=== PATIENT | female | born 1945 | race African-American/Black ===

== ENCOUNTER 2018-03-28 13:36 | Inpatient (IN) | payer OTHER, MEDICARE ==
[2018-03-28 13:49] VITALS: BMI 37.4
--- NOTE | 2018-03-28 14:39 | PDOC ---
Attending Attestation - HPI HPI: 03/28/18 15:05 The patient is a 72 year old female with a significant PMH of CKD, glomerulonephritis, gout, AFib, MV prolapse, HTN, asthma and diabetes who presents to the emergency department from Dr. Dozier office for evaluation of intermittent palpitations, diarrhea, and lightheadedness over the past 2-3 months. She presents today as she had [address] Dozier office. The patient denies fevers or chills. She denies any recent admissions. She denies sick contacts or recent travel. Allergies: Nifedipine, Nitroglycerin. Cardio: Dr. Porter PCP: Dr. Wright - Physicial Exam PE: 03/28/18 16:38 Vitals: Triage Vital signs reviewed General Appearance: no acute distress, well nourished well developed, Head: Atraumatic, normocephalic Cardiac: Regular rate and rhythm, no murmurs, no rubs, no gallops, Lungs: Clear to auscultation bilateral, good air movement bilaterally, Abdomen: Soft, nondistended, normal bowel sounds, nontender to palpation Rectal: Exam deferred Extremities: Full range of motion to all extremities, no cyanosis, clubbing, or edema Skin: Warm and dry, no rashes or lesions, no petechiae Neuro: AOX3; Cranial Nerves 2-12 grossly intact, Strength intact to all extremities, Sensation intact to all extremities Psych: normal mood, normal affect <Jasmeet Reyes - Last Filed: 03/28/18 16:38> - Resident Resident Name: Amanda Toro - ED Attending Attestation I have performed the following: I have examined & evaluated the patient, The case was reviewed & discussed with the resident, I agree w/resident's findings & plan, Exceptions are as noted - Medical Decision Making 03/28/18 17:05 72 years old past medical history significant for a CKD glomerulonephritis CAD A. fib MV prolapse hypertension and asthma diabetes presents with mild hypertension diarrhea lightheadedness for the last several days Patient sent to the emergency department for admission to rule out C. difficile No abdominal pain on examination On the to medicine for further management. 03/28/18 17:05 <Richard Casiano - Last Filed: 03/28/18 17:05>
--- NOTE | 2018-03-28 14:43 | PDOC ---
History of Present Illness - General Chief Complaint: Palpitations Stated Complaint: PALPITATIONS Time Seen by Provider: 03/28/18 14:01 History Source: Patient, Family - History of Present Illness Initial Comments: 03/28/18 14:41 72 year old female with a PMH of HTN, CKD, PAF (s/p pacemaker placement, interrogated January 2018), NIDDM, CKD, glomerulonephritis and MVP presents to our ED c/o palpitations that have been occuring for 2-3 months with associated lightheadedness, subjective dyspnea and no chest pain. Patient notes as associated 2-3 month history of diarrhea, was being evaluated by her creative assistant this morning when she had 3 episodes of diarrhea in quick succession prompting him to send her to the Emergency Department for evaluation. Denies any associated abdominal pain and has been tolerating PO intake however note decreased appetite 2/2 to symptoms, thinks she may have lost 5-10 pounds over the last 2-3 months. Patient denies any chest pain, fevers/chills, dysuria/hematuria, cough, sore throat, recent travel or sick contacts. Allergy: Nifedipine, Nitro PMD: Dr. Wright Cardiology: Dr. Porter Past History - Past Medical History Allergies/Adverse Reactions: Allergies Allergy/AdvReac Type Severity Reaction Status Date / Time nifedipine [From Procardia] Allergy "breathing Verified 03/28/18 16:49 problems" nitroglycerin AdvReac "severe Verified 03/28/18 16:49 [From Nitroglyn] headache" Home Medications: Ambulatory Orders Allopurinol [Zyloprim -] 300 mg PO DAILY 11/07/16 Diltiazem Cd [Cardizem Cd -] 120 mg PO DAILY 11/07/16 Doxazosin Mesylate [Cardura -] 2 mg PO DAILY 11/07/16 Iron 1 tab PO DAILY 11/07/16 Losartan/Hydrochlorothiazide [Losartan-Hctz 100-25 mg Tab] 1 each PO DAILY 11/07 Spironolactone [Aldactone] 25 mg PO DAILY 11/07/16 Bumetanide [Bumex -] 1 tab PO DAILY PRN 09/13/17 Cholecalciferol (Vitamin D3) [Vitamin D3] 1 cap PO DAILY 09/13/17 Warfarin Sodium [Coumadin] 5 mg PO ASDIR 03/28/18 Warfarin Sodium [Coumadin] 10 mg PO ASDIR 03/28/18 Anemia: Yes (LOW COUNT) Asthma: Yes Cancer: No Cardiac Disorders: Yes (MITRAL VALVE, SVT'S CAUSING PALPITATIONS. a.fib) COPD: No Diabetes: Yes (NIDDM) Dialysis: No (kidney disease) HTN: Yes - Surgical History Abdominal Surgery: Yes (UMBILICAL HERNIA) Appendectomy: Yes Cardiac Surgery: Yes (X1,CARDIAC CATH, ppm) Orthopedic Surgery: Yes (TKR RIGHT) - Suicide/Smoking/Psychosocial Hx Smoking Status: No Smoking History: Never smoked Have you smoked in the past 12 months: No Number of Cigarettes Smoked Daily: 0 Information on smoking cessation initiated: No Hx Alcohol Use: No Drug/Substance Use Hx: No Substance Use Type: None Hx Substance Use Treatment: No Review of Systems - Review of Systems Constitutional: No: Chills, Fever HEENTM: No: Recent change in vision Respiratory: Yes: Shortness of Breath. No: Cough Cardiac (ROS): Yes: Lightheadedness, Palpitations. No: Chest Pain, Syncope ABD/GI: Yes: Diarrhea (watery, non-bloody). No: Constipated, Nausea, Vomiting : No: Burning, Dysuria Neurological: No: Numbness, Seizure, Tingling Psychiatric: Yes: Change in Appetite *Physical Exam - Vital Signs Last Vital Signs Temp Pulse Resp BP Pulse Ox 98.0 F 73 18 107/50 99 03/28/18 13:46 03/28/18 13:46 03/28/18 13:46 03/28/18 13:46 03/28/18 13:46 - Physical Exam General Appearance: Yes: Nourished, Appropriately Dressed HEENT: positive: EOMI, ROSALINDA Neck: positive: Trachea midline, Supple Respiratory/Chest: positive: Lungs Clear Cardiovascular: positive: S1, S2. negative: Edema, JVD Vascular Pulses: Dorsalis-Pedis (R): 2+, Doralis-Pedis (L): 2+ Gastrointestinal/Abdominal: positive: Normal Bowel Sounds, Soft Musculoskeletal: negative: CVA Tenderness (R), CVA Tenderness (L) Extremity: positive: Normal Capillary Refill, Normal Inspection Integumentary: positive: Normal Color, Dry, Warm Neurologic: positive: psychology department chair II-XII NML intact, Fully Oriented, Alert Deep Tendon Reflexes: Knee (L): 2+, Knee (R): 2+ ED Treatment Course - LABORATORY CBC & Chemistry Diagram: 03/28/18 14:58 03/28/18 14:58 - RADIOLOGY Radiology Studies Ordered: Category Date Time Status CXRPORT [CHEST X-RAY PORTABLE*] [RAD] Stat Radiology 03/28/18 14:18 Taken Medical Decision Making - Medical Decision Making 03/28/18 14:43 72 year old female presents with 2-3 month h/o watery diarrhea. Hypotensive @ presentation, belly exam benign. Clinical suspicion for community acquired C. Diff. vs. gastritis. Will send stool cultures/C. Diff toxin + IV fluid. 03/28/18 15:44 Case d/w Dr. Porter (cardiology) states patient presented to his office for evaluation of her palpitations and during the course of evaluation she had three episodes of loose stool and her SBP dropped from 110 --> 90. He noted her pacemaker was last interrogated in January 2018. Will send C Diff and stool cultures. Patient admitted to Dr. Yusuf for further management of intractable diarrhea w/resulting hypotension. Patient and patient's daughter @ bedside counseled on POC. Repeat BP 110/71. Will continue to monitor while in ED. *DC/Admit/Observation/Transfer Diagnosis at time of Disposition: Diarrhea - Discharge Dispostion Condition at time of disposition: Fair Admit: Yes - Referrals - Patient Instructions - Post Discharge Activity
[2018-03-28] MEDS ORDERED: SODIUM CHLORIDE 0.9% 500 ML INFUS.BAG IV ONE ×2 (14:47→15:07)
[2018-03-28 15:09] LABS: BASO % 0.7 % (0-2.0); EOS % 1.1 % (0-4.5); HEMATOCRIT 31.2 % (32.4-45.2); HEMOGLOBIN 10.3 GM/dL (10.7-15.3); MCHC 33.1 g/dl (32.0-36.0); MEAN CELL VOLUME 84.8 fl (80-96); MEAN PLT VOLUME 11.5 fl (7.5-11.1); MONO % 7.9 % (3.8-10.2); NEUT % 77.3 % (42.8-82.8); PLATELET COUNT 176 K/MM3 (134-434); RBC 3.69 M/mm3 (3.60-5.2); RDW 16.2 % (11.6-15.6)
[2018-03-28 15:31] LABS: INR 1.81 (0.82-1.09); PROTHROMBIN TIME (PATIENT) 20.4 SEC (9.7-13.0)
[2018-03-28 15:32] LABS: ALBUMIN 3.4 g/dl (3.4-5.0); ANION GAP 7 (8-16); BILIRUBIN,TOTAL 0.2 mg/dL (0.2-1.0); BLOOD UREA NITROGEN 57 mg/dL (7-18); CALCIUM 8.2 mg/dL (8.5-10.1); CHLORIDE 109 mmol/L (98-107); CO2 24 mmol/L (21-32); CREATININE 3.6 mg/dL (0.55-1.02); GLUCOSE,RANDOM 194 mg/dL (74-106); POTASSIUM 4.5 mmol/L (3.5-5.1); SGOT/AST 16 U/L (15-37); SGPT/ALT 17 U/L (12-78); SODIUM 140 mmol/L (136-145); TOT PROT 6.9 g/dl (6.4-8.2)
[2018-03-28 15:34] LABS: ACTIVATED PTT 31.2 SECONDS (26.9-34.4); ALK PHOS 79 U/L (45-117); N-TERMINAL BNP 583.73 pg/ml (5-125)
[2018-03-28] MEDS ORDERED: ACETAMINOPHEN 325 MG TABLET (FP) PO PRN (16:52)
--- NOTE | 2018-03-28 16:58 | HP ---
Admitting History and Physical - Primary Care Physician PCP: Brodie Wright - Admission Chief Complaint: I'm not feeling well History of Present Illness: Mrs Gray is a very pleasant 72 year old female who comes in with palpitations and lightheadedness after being seen in her cardiologists office. She says she has about 3 months of diarrhea. She says it is mainly liquid and it happens every time after she eats. She also notes that she is feeling more palpitations. She is being evaluated for possible ablation. She went to her cardiologists today and while there had 3 episodes of diarrhea. She was also feeling palpitations and lightheaded. She was noted to have low blood pressure and was sent to the ED for further evaluation. Currently she says she is feeling ok. She is having some lightheadedness with standing currently. She still feels palpitations sporadically. She denies fevers, chills, passing out, chest pain or pressure, nausea, vomiting, decreased appetite, difficulty or pain on urination, and her chronic edema is improved. She has shortness of breath with the palpitations. History Source: Patient Limitations to Obtaining History: No Limitations - Past Medical History Cardiovascular: Yes: AFIB, HTN, Other (LV diastolic dysfunction, mitral valve prolapse) Pulmonary: Yes: Asthma Renal/: Yes: Renal Inusuff, Other (fibrillary glomerulonephritis) Musculoskeletal: Yes: Chronic low back pain Rheumatology: Yes: Fibromyalgia, Gout Endocrine: Yes: Diabetes Mellitus - Past Surgical History Past Surgical History: Yes: , Hernia Repair, Hysterectomy, Joint Replacement - Smoking History Smoking history: Never smoked Have you smoked in the past 12 months: No Aproximately how many cigarettes per day: 0 - Alcohol/Substance Use Hx Alcohol Use: No History of Substance Use: reports: None - Social History ADL: Independent Occupation: retired History of Recent Travel: No Home Medications - Allergies Allergies/Adverse Reactions: Allergies Allergy/AdvReac Type Severity Reaction Status Date / Time nifedipine [From Procardia] Allergy "breathing Verified 03/28/18 16:49 problems" nitroglycerin AdvReac "severe Verified 03/28/18 16:49 [From Nitroglyn] headache" - Home Medications Home Medications: Ambulatory Orders Allopurinol [Zyloprim -] 300 mg PO DAILY 11/07/16 Diltiazem Cd [Cardizem Cd -] 120 mg PO DAILY 11/07/16 Doxazosin Mesylate [Cardura -] 2 mg PO DAILY 11/07/16 Iron 1 tab PO DAILY 11/07/16 Losartan/Hydrochlorothiazide [Losartan-Hctz 100-25 mg Tab] 1 each PO DAILY 11/07 Spironolactone [Aldactone] 25 mg PO DAILY 11/07/16 Bumetanide [Bumex -] 1 tab PO DAILY PRN 09/13/17 Cholecalciferol (Vitamin D3) [Vitamin D3] 1 cap PO DAILY 09/13/17 Warfarin Sodium [Coumadin] 5 mg PO ASDIR 03/28/18 Warfarin Sodium [Coumadin] 10 mg PO ASDIR 03/28/18 Family Disease History - Family Disease History Family Disease History: Diabetes: Father, Mother Review of Systems Findings/Remarks: Full review of systems obtained, as per HPI and otherwise negative Physical Examination Vital Signs: Vital Signs Temperature 36.7 C 03/28/18 13:46 Pulse Rate 73 03/28/18 13:46 Respiratory Rate 18 03/28/18 13:46 Blood Pressure 107/50 03/28/18 13:46 O2 Sat by Pulse Oximetry (%) 99 03/28/18 13:46 Constitutional: Yes: Well Nourished, No Distress, Calm Eyes: Yes: Conjunctiva Clear, EOM Intact, PERRL HENT: Yes: Atraumatic, Normocephalic Cardiovascular: Yes: Regular Rate and Rhythm. No: Gallop, Murmur, Rub Respiratory: Yes: Regular, CTA Bilaterally. No: Rales, Rhonchi, Wheezes Gastrointestinal: Yes: Normal Bowel Sounds, Soft. No: Distention, Tenderness Extremities: Yes: WNL Edema: Yes Edema: LLE: 1+, RLE: 1+ Labs: CBC, BMP 03/28/18 14:58 03/28/18 14:58 Imaging - Results Chest X-ray: Image Reviewed Problem List - Problems (1) Acute renal insufficiency Assessment/Plan: -secondary to dehydration from chronic diarrhea and diuretics -admit to the hospital -hold losartan/HCT, bumex, and aldactone -gentle hydration -consult nephrology Code(s): N28.9 - DISORDER OF KIDNEY AND URETER, UNSPECIFIED (2) Chronic renal disease Assessment/Plan: -as above Code(s): N18.9 - CHRONIC KIDNEY DISEASE, UNSPECIFIED Qualifiers: Chronic kidney disease stage: stage 3 (moderate) Qualified Code(s): N18.3 - Chronic kidney disease, stage 3 (moderate) (3) Palpitations Assessment/Plan: -currently not on north agents -consult cardiology -planning for possible ablation in future Code(s): R00.2 - PALPITATIONS (4) Diarrhea Assessment/Plan: -present for 3 months -has history of c diff infection in the past, no recent antibiotic use or hospitalizations -however will check for c diff -stool cultures also ordered -consult GI Code(s): R19.7 - DIARRHEA, UNSPECIFIED (5) Diabetes Assessment/Plan: -patient restarted taking metformin at home (did without telling her physicians) -considering renal function will not continue -d/w patient that should not take medications unless instructed by her physicians -diabetic diet -SSI and FSBS Code(s): E11.9 - TYPE 2 DIABETES MELLITUS WITHOUT COMPLICATIONS Qualifiers: Diabetes mellitus type: type 1 (6) Gout Assessment/Plan: -continue allopurinol -not in flare Code(s): M10.9 - GOUT, UNSPECIFIED (7) Hypertension Assessment/Plan: -hypotensive -holding diuretics and ARBs as above -will also hold hydralazine -hydrate gently and monitor Code(s): I10 - ESSENTIAL (PRIMARY) HYPERTENSION Qualifiers: Hypertension type: essential hypertension Qualified Code(s): I10 - Essential (primary) hypertension (8) Restless leg syndrome, controlled Assessment/Plan: -continue pramipexole Code(s): G25.81 - RESTLESS LEGS SYNDROME (9) Paroxysmal atrial fibrillation Assessment/Plan: -currently in sinus rhythm -continue coumadin -cardiology consulted Code(s): I48.0 - PAROXYSMAL ATRIAL FIBRILLATION
[2018-03-28] MEDS ORDERED: WARFARIN NA 7.5 MG TABLET (FP) PO SCH (18:00)
[2018-03-28] MEDS: SODIUM CHLORIDE 1,000 ML IV SCH ×2 (18:11→22:21)
[2018-03-28] MEDS ORDERED: WARFARIN NA 1 MG TABLET (FP) ONE (20:28)
[2018-03-28] MEDS ORDERED: WARFARIN NA 5 MG TABLET (UD) ONE (20:28)
[2018-03-28] MEDS ORDERED: INSULIN (NOVOLOG) ASPART 100 UNITS/ML 10ML VIAL ONE (21:42)
--- NOTE | 2018-03-28 22:00 | EKG ---
Test Reason : Blood Pressure : / mmHG Vent. Rate : 074 BPM Atrial Rate : 074 BPM P-R Int : 228 ms QRS Dur : 076 ms QT Int : 398 ms P-R-T Axes : 032 036 254 degrees QTc Int : 441 ms Atrial-paced rhythm with prolonged AV conduction T WAVE ABNORMALITY, CONSIDER INFEROLATERAL ISCHEMIA ABNORMAL ECG WHEN COMPARED WITH ECG OF 07-NOV-2016 14:47, ELECTRONIC ATRIAL PACEMAKER HAS REPLACED SINUS RHYTHM T WAVE INVERSION NOW EVIDENT IN INFERIOR LEADS T WAVE INVERSION NOW EVIDENT IN LATERAL LEADS VENT. RATE HAS INCREASED Confirmed by HEAVEN MEHTA MD ([id number]) on 03/28/2018 9:59:55 PM Referred By: Confirmed By:HEAVEN MEHTA MD
[2018-03-28] MEDS: INSULIN SLIDING SCALE (NOVOLOG) 1 VIAL SQ SCH (22:22)
[2018-03-28] MEDS: PRAMIPEXOLE DIHYDROCHLORIDE 0.25 MG TABLET PO SCH ×2 (22:55→23:04)
[2018-03-29] MEDS: INSULIN SLIDING SCALE (NOVOLOG) 1 VIAL SQ SCH ×4 (06:18→22:01)
[2018-03-29] MEDS ORDERED: INSULIN (NOVOLOG) ASPART 100 UNITS/ML 10ML VIAL ONE (06:23)
[2018-03-29 08:12] LABS: BASO % 0.6 % (0-2.0); HEMATOCRIT 28.6 % (32.4-45.2); HEMOGLOBIN 9.4 GM/dL (10.7-15.3); LYMPH % 19.6 % (8-40); MCH 28.2 pg (25.7-33.7); MEAN CELL VOLUME 85.4 fl (80-96); MEAN PLT VOLUME 11.5 fl (7.5-11.1); MONO % 8.8 % (3.8-10.2); PLATELET COUNT 158 K/MM3 (134-434); RBC 3.34 M/mm3 (3.60-5.2); RDW 16.4 % (11.6-15.6); WHITE BLOOD COUNT 8.8 K/mm3 (4.0-10.0)
[2018-03-29 08:34] LABS: INR 1.88 (0.82-1.09); PROTHROMBIN TIME (PATIENT) 21.2 SEC (9.7-13.0)
[2018-03-29 08:55] LABS: ANION GAP 10 (8-16); BLOOD UREA NITROGEN 55 mg/dL (7-18); CALCIUM 8.1 mg/dL (8.5-10.1); CHLORIDE 110 mmol/L (98-107); CO2 22 mmol/L (21-32); GLUCOSE,RANDOM 142 mg/dL (74-106); MAGNESIUM 1.7 mg/dL (1.8-2.4); POTASSIUM 4.2 mmol/L (3.5-5.1); SODIUM 142 mmol/L (136-145)
[2018-03-29 08:56] LABS: CREATININE 3.3 mg/dL (0.55-1.02); PHOSPHOROUS 3.8 mg/dL (2.5-4.9)
[2018-03-29] MEDS: ALLOPURINOL 300 MG TABLET (FP) PO SCH (09:18)
[2018-03-29] MEDS: CHOLECALCIFEROL (VITAMIN D3) 1,000 UNIT TABLET (FP) PO SCH (09:18)
[2018-03-29] MEDS ORDERED: IRON PO SCH (10:00)
--- NOTE | 2018-03-29 11:00 | PN ---
Progress Note (short form) - Note Progress Note: Dr. Yusuf to document today.
--- NOTE | 2018-03-29 11:35 | PN ---
Progress Note, Physician - Current Medication List Current Medications: Active Medications Acetaminophen (Tylenol -) 650 mg PO Q4H PRN PRN Reason: PAIN LEVEL 1-5 Allopurinol (Zyloprim -) 150 mg PO DAILY [facility] Last Admin: 03/29/18 09:18 Dose: 150 mg Cholecalciferol (Vitamin D3 -) 2,000 unit PO DAILY [facility] Last Admin: 03/29/18 09:18 Dose: 2,000 unit Sodium Chloride (Normal Saline -) 1,000 mls @ 50 mls/hr IV ASDIR [facility] Stop: 03/29/18 16:54 Last Admin: 03/28/18 22:21 Dose: 50 mls/hr Insulin Aspart (Novolog Vial Sliding Scale -) 1 vial SQ ACHS [facility] PRN Reason: Protocol Last Admin: 03/29/18 11:28 Dose: Not Given Non-Formulary Medication (Iron [Iron]) 1 tab PO DAILY [facility] Pramipexole Dihydrochloride (Mirapex -) 0.25 mg PO HS [facility] Last Admin: 03/28/18 23:04 Dose: Not Given Warfarin Sodium (Coumadin -) 7.5 mg PO 1800 [facility] Last Admin: 03/28/18 20:30 Dose: 7.5 mg Warfarin Sodium (Coumadin -) 10 mg PO ONCE@1800 ONE Stop: 03/29/18 18:01 - Objective Vital Signs: Vital Signs Temperature 36.8 C 03/29/18 10:00 Pulse Rate 67 03/29/18 10:00 Respiratory Rate 18 03/29/18 10:00 Blood Pressure 115/75 03/29/18 10:00 O2 Sat by Pulse Oximetry (%) 97 03/29/18 10:00 Labs: CBC, BMP 03/29/18 07:15 03/29/18 07:15 INR, PTT INR 1.88 (0.82-1.09) H 03/29/18 06:00 Problem List - Problems (1) Acute renal insufficiency Code(s): N28.9 - DISORDER OF KIDNEY AND URETER, UNSPECIFIED (2) Chronic renal disease Code(s): N18.9 - CHRONIC KIDNEY DISEASE, UNSPECIFIED Qualifiers: Chronic kidney disease stage: stage 3 (moderate) Qualified Code(s): N18.3 - Chronic kidney disease, stage 3 (moderate) (3) Palpitations Code(s): R00.2 - PALPITATIONS (4) Diarrhea Code(s): R19.7 - DIARRHEA, UNSPECIFIED (5) Diabetes Code(s): E11.9 - TYPE 2 DIABETES MELLITUS WITHOUT COMPLICATIONS Qualifiers: Diabetes mellitus type: type 1 (6) Gout Code(s): M10.9 - GOUT, UNSPECIFIED (7) Hypertension Code(s): I10 - ESSENTIAL (PRIMARY) HYPERTENSION Qualifiers: Hypertension type: essential hypertension Qualified Code(s): I10 - Essential (primary) hypertension (8) Restless leg syndrome, controlled Code(s): G25.81 - RESTLESS LEGS SYNDROME (9) Paroxysmal atrial fibrillation Code(s): I48.0 - PAROXYSMAL ATRIAL FIBRILLATION Assessment/Plan (1) Acute renal insufficiency Assessment/Plan: -improving -will continue gentle hydration for another 24 hours -nephrology consulted and awaiting recommendations -continue holding diuretics and losartan Code(s): N28.9 - DISORDER OF KIDNEY AND URETER, UNSPECIFIED (2) Chronic renal disease Assessment/Plan: -as above Code(s): N18.9 - CHRONIC KIDNEY DISEASE, UNSPECIFIED Qualifiers: Chronic kidney disease stage: stage 3 (moderate) Qualified Code(s): N18.3 - Chronic kidney disease, stage 3 (moderate) (3) Palpitations Assessment/Plan: -continue telemetry -cardiology consulted Code(s): R00.2 - PALPITATIONS (4) Diarrhea Assessment/Plan: -stool studies sent -still present -GI consulted Code(s): R19.7 - DIARRHEA, UNSPECIFIED (5) Diabetes Assessment/Plan: -diabetic diet -SSI and FSBS -may be able to stop FSBS and SSI if not very elevated for 24 hours Code(s): E11.9 - TYPE 2 DIABETES MELLITUS WITHOUT COMPLICATIONS Qualifiers: Diabetes mellitus type: type 1 (6) Gout Assessment/Plan: -continue allopurinol -not in flare Code(s): M10.9 - GOUT, UNSPECIFIED (7) Hypertension Assessment/Plan: -improved but still low normal -holding diuretics and ARBs as above -will also hold hydralazine -hydrate gently and monitor Code(s): I10 - ESSENTIAL (PRIMARY) HYPERTENSION Qualifiers: Hypertension type: essential hypertension Qualified Code(s): I10 - Essential (primary) hypertension (8) Restless leg syndrome, controlled Assessment/Plan: -continue pramipexole Code(s): G25.81 - RESTLESS LEGS SYNDROME (9) Paroxysmal atrial fibrillation Assessment/Plan: -currently in sinus rhythm -continue coumadin, increase to 10mg x1d since subtherapeutic -cardiology consulted Code(s): I48.0 - PAROXYSMAL ATRIAL FIBRILLATION
--- NOTE | 2018-03-29 13:53 | CONSULT ---
Consult Consult Specialty:: Nephrology Reason for Consultation:: SUMEET - History of Present Illness Chief Complaint: palpitations History of Present Illness: Pt is a 72 year old female with pmhx of HTN, CKD, PAF, DM, and MVP who was sent in to the ER for palpitations. She also complains of diarrhea. She was found to have elevated creatinine and I was called to evaluate her. She follows with Dr Ramirez. She denies shortness of breath or chest pain. She denies fevers or chills. She had 3 episodes of diarrhea before being sent to the ER. She denies nsaid use. Her renal function started to improve with hydration. - History Source History Provided By: Patient, Medical Record - Past Medical History Cardio/Vascular: Yes: AFIB, HTN, Other (LV diastolic dysfunction, mitral valve prolapse) Pulmonary: Yes: Asthma Renal/: Yes: Renal Inusuff, Other (fibrillary glomerulonephritis) Musculoskeletal: Yes: Chronic low back pain Rheumatology: Yes: Fibromyalgia, Gout Endocrine: Yes: Diabetes Mellitus - Past Surgical History Past Surgical History: Yes: , Hernia Repair, Hysterectomy, Joint Replacement - Alcohol/Substance Use Hx Alcohol Use: No History of Substance Use: reports: None - Smoking History Smoking history: Never smoked Have you smoked in the past 12 months: No Aproximately how many cigarettes per day: 0 - Social History ADL: Independent Occupation: retired History of Recent Travel: No Home Medications - Allergies Allergies/Adverse Reactions: Allergies Allergy/AdvReac Type Severity Reaction Status Date / Time nifedipine [From Procardia] Allergy "breathing Verified 03/28/18 16:49 problems" nitroglycerin AdvReac "severe Verified 03/28/18 16:49 [From Nitroglyn] headache" - Home Medications Home Medications: Ambulatory Orders Allopurinol [Zyloprim -] 300 mg PO DAILY 11/07/16 Diltiazem Cd [Cardizem Cd -] 120 mg PO DAILY 11/07/16 Doxazosin Mesylate [Cardura -] 2 mg PO DAILY 11/07/16 Iron 1 tab PO DAILY 11/07/16 Losartan/Hydrochlorothiazide [Losartan-Hctz 100-25 mg Tab] 1 each PO DAILY 11/07 Spironolactone [Aldactone] 25 mg PO DAILY 11/07/16 Bumetanide [Bumex -] 1 tab PO DAILY PRN 09/13/17 Cholecalciferol (Vitamin D3) [Vitamin D3] 1 cap PO DAILY 09/13/17 Warfarin Sodium [Coumadin] 5 mg PO ASDIR 03/28/18 Warfarin Sodium [Coumadin] 10 mg PO ASDIR 03/28/18 Family Disease History - Family Disease History Family Disease History: Diabetes: Father, Mother Review of Systems - Review of Systems Constitutional: reports: Malaise, Unintentional Wgt. Loss Eyes: reports: No Symptoms HENT: reports: No Symptoms Neck: reports: No Symptoms Cardiovascular: reports: Palpitations Respiratory: reports: No Symptoms Gastrointestinal: reports: Diarrhea Genitourinary: reports: No Symptoms Musculoskeletal: reports: No Symptoms Integumentary: reports: No Symptoms Neurological: reports: No Symptoms Endocrine: reports: No Symptoms Hematology/Lymphatic: reports: No Symptoms Psychiatric: reports: No Symptoms Physical Exam Vital Signs: Vital Signs Temperature 98.3 F 03/29/18 10:00 Pulse Rate 67 03/29/18 10:00 Respiratory Rate 18 03/29/18 10:00 Blood Pressure 115/75 03/29/18 10:00 O2 Sat by Pulse Oximetry (%) 97 03/29/18 10:00 Constitutional: Yes: Calm Eyes: Yes: Conjunctiva Clear HENT: Yes: Atraumatic Neck: Yes: Supple Cardiovascular: Yes: S1, S2 Respiratory: Yes: CTA Bilaterally Gastrointestinal: Yes: Soft, Abdomen, Obese Renal/: Yes: WNL Musculoskeletal: Yes: WNL Edema: Yes Edema: LLE: 1+, RLE: 1+ Neurological: Yes: Oriented Psychiatric: Yes: Oriented Labs: CBC, BMP 03/29/18 07:15 03/29/18 07:15 Laboratory Tests 11/06/15 11/06/16 11/07/16 06:30 06:00 15:06 Creatinine 1.9 H 2.1 H Protein/Creatinin Ratio 2.7 06/03/17 07/09/17 09/30/17 10:51 10:00 15:45 Creatinine 1.8 H 2.4 H D 2.6 H Protein/Creatinin Ratio 01/07/18 03/25/18 11:14 11:43 Creatinine 2.4 H 2.5 H Protein/Creatinin Ratio Imaging - Results Chest X-ray: Report Reviewed Problem List - Problems (1) Diarrhea Code(s): R19.7 - DIARRHEA, UNSPECIFIED (2) Acute renal insufficiency Code(s): N28.9 - DISORDER OF KIDNEY AND URETER, UNSPECIFIED (3) Chronic renal disease Code(s): N18.9 - CHRONIC KIDNEY DISEASE, UNSPECIFIED Qualifiers: Chronic kidney disease stage: stage 3 (moderate) Qualified Code(s): N18.3 - Chronic kidney disease, stage 3 (moderate) Assessment/Plan Current Medications Generic Name Dose Route Start Last Admin Trade Name Freq PRN Reason Stop Dose Admin Acetaminophen 650 mg 03/28/18 16:52 Tylenol - PO Q4H PRN PAIN LEVEL 1-5 Allopurinol 150 mg 03/29/18 10:00 03/29/18 09:18 Zyloprim - PO 150 mg DAILY [facility] Administration Cholecalciferol 2,000 unit 03/29/18 10:00 03/29/18 09:18 Vitamin D3 - PO 2,000 unit DAILY [facility] Administration Ferrous Sulfate 325 mg 03/29/18 17:30 Feosol - PO BIDWM [facility] Sodium Chloride 1,000 mls @ 50 mls/hr 03/28/18 17:00 03/28/18 22:21 Normal Saline - IV 03/30/18 16:54 50 mls/hr ASDIR [facility] Administration Insulin Aspart 1 vial 03/28/18 22:00 03/29/18 11:28 Novolog Vial Sliding Scale - SQ Not Given ACHS [facility] Protocol Non-Formulary Medication 1 tab 03/29/18 10:00 Iron [Iron] PO DAILY [facility] Pramipexole Dihydrochloride 0.25 mg 03/28/18 22:00 03/28/18 23:04 Mirapex - PO Not Given HS [facility] Warfarin Sodium 7.5 mg 03/28/18 18:00 03/28/18 20:30 Coumadin - PO 7.5 mg 1800 [facility] Administration Warfarin Sodium 10 mg 03/29/18 18:00 Coumadin - PO 03/29/18 18:01 ONCE@1800 ONE Impression 1. CKD 2. fibrillary GN 3. HTN 4. DM 5. palpitations 6. anemia 7. SUMEET 8. diarrhea Plan - renal function is starting to improve - diuretics on hold - gentle hydration - check kidney ultrasound - send ua, electrolytes and sales solutions representative - losartan and thiazide on hold - metformin also on hold - will follow Dr Mattson
[2018-03-29] MEDS ORDERED: MAGNESIUM SULF 50% (8.12 MEQ/2 ML-1 GM VIAL) IVPB ONE (15:15)
[2018-03-29] MEDS: SODIUM CHLORIDE 1,000 ML IV SCH ×2 (17:18→22:00)
[2018-03-29] MEDS: FERROUS SO4 325 MG TABLET (FP) PO SCH (17:18)
[2018-03-29] MEDS ORDERED: WARFARIN NA 10 MG TABLET (FP) PO ONE (18:00)
--- NOTE | 2018-03-29 19:50 | CON.GI ---
Consult Consult Specialty:: Gastroenterology Referred by:: Dr. Wright Reason for Consultation:: Diarrhea - History of Present Illness Chief Complaint: Postprandial diarrhea with urgency x 3 months History of Present Illness: 72F diabetic is admitted with diarrhea leading to dehydration aggravating her renal insufficiency. Sue describes having diarrhea that occurs only after eating and which resolved when she avoids eating. She develops cramps and urgency to defecate between 15-60 minutes after eating. While in Dr Porter's office yesterday she had several urgent loose BMs that prompted this admission. She denies passing blood or mucus. She denies tenesmus. She did pass some solid chunks of stool admixed with diarrheal stool this past weekend. She had this altered bowel habit for the past 3 months and it preceded her most recent antibiotic exposure. She denies foreign travel. She has also been experiencing a diminished appetite and early satiety. She has nausea but has not vomited. She last had a colonoscopy on 09/13/15 when an adenoma was removed from her proximal transverse colon. A cecal hyperplastic polyp was also removed. Mild sigmoid diverticulosis was noted. EGD on that date revealed a sliding hiatal hernia and biopsies failed to reveal celiac disease. Ths studies were done for anemia. A BM failed to reveal MDS. 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 SSS), HTN, Other (LV diastolic dysfunction, mitral valve prolapse) Pulmonary: Yes: Asthma Gastrointestinal: Yes: Diverticulosis, Hiatal Hernia, Other (colon adenoma 2014) Renal/: Yes: Renal Inusuff (mesangial proliferative glomerulonephritis), Other (fibrillary glomerulonephritis) Musculoskeletal: Yes: Chronic low back pain (degenerative disc disease) Rheumatology: Yes: Fibromyalgia, Gout Endocrine: Yes: Diabetes Mellitus - Past Surgical History Past Surgical History: Yes: Appendectomy, , Hernia Repair (umbilical hernia repair), Hysterectomy (TAHBSO with appendectomy), Joint Replacement ( Right TKR), Tonsillectomy Additional Surgical History: left foot lipoma excision - Alcohol/Substance Use Hx Alcohol Use: No History of Substance Use: reports: None - Smoking History Smoking history: Never smoked Have you smoked in the past 12 months: No Aproximately how many cigarettes per day: 0 - Social History Usual Living Arrangement: Alone ADL: Independent 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 History of Recent Travel: No Home Medications - Allergies Allergies/Adverse Reactions: Allergies Allergy/AdvReac Type Severity Reaction Status Date / Time nifedipine [From Procardia] Allergy "breathing Verified 03/28/18 16:49 problems" nitroglycerin AdvReac "severe Verified 03/28/18 16:49 [From Nitroglyn] headache" - Home Medications Home Medications: Ambulatory Orders Allopurinol [Zyloprim -] 300 mg PO DAILY 11/07/16 Diltiazem Cd [Cardizem Cd -] 120 mg PO DAILY 11/07/16 Doxazosin Mesylate [Cardura -] 2 mg PO DAILY 11/07/16 Iron 1 tab PO DAILY 11/07/16 Losartan/Hydrochlorothiazide [Losartan-Hctz 100-25 mg Tab] 1 each PO DAILY 11/07 Spironolactone [Aldactone] 25 mg PO DAILY 11/07/16 Bumetanide [Bumex -] 1 tab PO DAILY PRN 09/13/17 Cholecalciferol (Vitamin D3) [Vitamin D3] 1 cap PO DAILY 09/13/17 Warfarin Sodium [Coumadin] 5 mg PO ASDIR 03/28/18 Warfarin Sodium [Coumadin] 10 mg PO ASDIR 03/28/18 Family Disease History - Family Disease History Family Disease History: Diabetes: Father (OMS), Heart Disease: Father, Mother ( PPM, GB stones) Other Family History: Mat aunt breast cancer, cousin with cervical cancer Review of Systems - Review of Systems Constitutional: reports: Loss of Appetite, Weakness Eyes: reports: No Symptoms HENT: reports: No Symptoms Neck: reports: No Symptoms Cardiovascular: reports: Palpitations, Shortness of Breath Respiratory: reports: Exercise Intolerance, SOB on Exertion Gastrointestinal: reports: Abdominal Pain, Bloating, Diarrhea, Nausea Musculoskeletal: reports: Back Pain Neurological: reports: Numbness, Weakness Physical Exam-GI Vital Signs: Vital Signs Temperature 97.8 F 03/29/18 14:21 Pulse Rate 67 03/29/18 14:21 Respiratory Rate 16 03/29/18 14:21 Blood Pressure 131/73 03/29/18 14:21 O2 Sat by Pulse Oximetry (%) 97 03/29/18 16:00 CBC,CMP WBC 8.8 K/mm3 (4.0-10.0) 03/29/18 07:15 RBC 3.34 M/mm3 (3.60-5.2) L 03/29/18 07:15 Hgb 9.4 GM/dL (10.7-15.3) L 03/29/18 07:15 Hct 28.6 % (32.4-45.2) L 03/29/18 07:15 MCV 85.4 fl (80-96) 03/29/18 07:15 MCH 28.2 pg (25.7-33.7) 03/29/18 07:15 MCHC 33.0 g/dl (32.0-36.0) 03/29/18 07:15 RDW 16.4 % (11.6-15.6) H 03/29/18 07:15 Plt Count 158 K/MM3 (134-434) 03/29/18 07:15 MPV 11.5 fl (7.5-11.1) H 03/29/18 07:15 Neutrophils % 66.0 % (42.8-82.8) 03/29/18 07:15 Lymphocytes % 19.6 % (8-40) D 03/29/18 07:15 Monocytes % 8.8 % (3.8-10.2) 03/29/18 07:15 Eosinophils % 5.0 % (0-4.5) H D 03/29/18 07:15 Basophils % 0.6 % (0-2.0) 03/29/18 07:15 Sodium 142 mmol/L (136-145) 03/29/18 07:15 Potassium 4.2 mmol/L (3.5-5.1) 03/29/18 07:15 Chloride 110 mmol/L (98-107) H 03/29/18 07:15 Carbon Dioxide 22 mmol/L (21-32) 03/29/18 07:15 Anion Gap 10 (8-16) 03/29/18 07:15 BUN 55 mg/dL (7-18) H 03/29/18 07:15 Creatinine 3.3 mg/dL (0.55-1.02) H 03/29/18 07:15 Creat Clearance w eGFR 12.50 (>60) 03/28/18 14:58 POC Glucometer 177 UNITS (80-120) 03/29/18 16:45 Random Glucose 142 mg/dL (74-106) H 03/29/18 07:15 Calcium 8.1 mg/dL (8.5-10.1) L 03/29/18 07:15 Phosphorus 3.8 mg/dL (2.5-4.9) 03/29/18 07:15 Magnesium 1.7 mg/dL (1.8-2.4) L 03/29/18 07:15 Total Bilirubin 0.2 mg/dL (0.2-1.0) 03/28/18 14:58 AST 16 U/L (15-37) 03/28/18 14:58 ALT 17 U/L (12-78) 03/28/18 14:58 Alkaline Phosphatase 79 U/L (45-117) 03/28/18 14:58 Creatine Kinase 98 IU/L (26-192) 03/28/18 14:58 Troponin I 0.07 ng/ml (0.00-0.05) H 03/28/18 14:58 B-Natriuretic Peptide 583.73 pg/ml (5-125) H 03/28/18 14:58 Total Protein 6.9 g/dl (6.4-8.2) 03/28/18 14:58 Albumin 3.4 g/dl (3.4-5.0) 03/28/18 14:58 TSH 2.29 uIU/ml (0.358-3.74) 03/28/18 14:50 Current Medications Generic Name Dose Route Start Last Admin Trade Name Imerq PRN Reason Stop Dose Admin Acetaminophen 650 mg 03/28/18 16:52 Tylenol - PO Q4H PRN PAIN LEVEL 1-5 Allopurinol 150 mg 03/29/18 10:00 03/29/18 09:18 Zyloprim - PO 150 mg DAILY ADA Administration Cholecalciferol 2,000 unit 03/29/18 10:00 03/29/18 09:18 Vitamin D3 - PO 2,000 unit DAILY ADA Administration Ferrous Sulfate 325 mg 03/29/18 17:30 03/29/18 17:18 Feosol - PO 325 mg BIDWM ADA Administration Sodium Chloride 1,000 mls @ 50 mls/hr 03/28/18 17:00 03/29/18 17:18 Normal Saline - IV 03/30/18 16:54 50 mls/hr ASDIR ADA Administration Insulin Aspart 1 vial 03/28/18 22:00 03/29/18 16:53 Novolog Vial Sliding Scale - SQ Not Given ACHS [facility] Protocol Non-Formulary Medication 1 tab 03/29/18 10:00 Iron [Iron] PO DAILY [facility] Pramipexole Dihydrochloride 0.25 mg 03/28/18 22:00 03/28/18 23:04 Mirapex - PO Not Given HS [facility] Warfarin Sodium 7.5 mg 03/28/18 18:00 03/28/18 20:30 Coumadin - PO 7.5 mg 1800 ADA Administration Constitutional: Yes: Calm Eyes: Yes: Conjunctiva Clear HENT: Yes: Atraumatic Neck: Yes: Trachea Midline Cardiovascular: Yes: Regular Rate and Rhythm, Other (left sided PPM) Respiratory: Yes: CTA Bilaterally Gastrointestinal Inspection: Yes: Distention, Hernia (incisional), Scars ( crisscrossing transverse subumbilical, vertical suprapubic and Pfannensteil incisions with incisional hernias) ...Auscultate: Yes: Hypoactive Bowel Sounds ...Palpate: Yes: Soft, Other (nontender) ...Percussion: Yes: Tympanitic ...Rectal Exam: Yes: Guaiac Negative (brown semisolid stool), Sphincter Tone Normal Neurological: Yes: Alert, Oriented Labs: CBC, BMP 03/29/18 07:15 03/29/18 07:15 INR, PTT INR 1.88 (0.82-1.09) H 03/29/18 06:00 Laboratory Tests 08/29/15 04/01/16 06/03/17 12:35 10:20 10:51 BUN 27 H D 36 H 49 H 09/30/17 03/25/18 03/28/18 15:45 11:43 14:58 BUN 65 H D 58 H 57 H 03/29/18 07:15 BUN 55 H Problem List - Problems (1) Diarrhea Assessment/Plan: Although the dehydration suggests true diarrhea due to infectious or ischemic colitis or diabetic diarrhea ( C diff is negative) her postprandial pattern of diarrhea, the admixture with solid stool and lack of tenesmus, cessation with NPO status and early satiety suggest diabetic autonomic neuropathy leading to poor colon and gastric motility with diabetic gastroparesis and fecal impaction leading to paradoxical overflow diarrhea. I will order a CT scan to look for evidence of colitis and fecal retention ( no IV contrast) and a stool for WBCs. An elastase to exclude pancreatic insufficiency will also be ordered. I would like to avoid a colonoscopy given her renal failure and anticipated cardiac ablation but if this diarrhea persists I will reconsider after fluid resuscitation. I have discussed colonoscopy in detail with Sue and her daughter. I again informed them of the potential risks of perforation and hemorrhage. Sue is in a position to sign an informed consent if necessary. Code(s): R19.7 - DIARRHEA, UNSPECIFIED (2) Colon adenoma Assessment/Plan: Sue is due for surveillance. Will try to defer until her cardiac and renal situations are resolved. Code(s): D12.6 - BENIGN NEOPLASM OF COLON, UNSPECIFIED (3) Diverticulosis Code(s): K57.90 - DVRTCLOS OF INTEST, PART UNSP, W/O PERF OR ABSCESS W/O BLEED (4) Hiatal hernia Code(s): K44.9 - DIAPHRAGMATIC HERNIA WITHOUT OBSTRUCTION OR GANGRENE
--- NOTE | 2018-03-29 20:03 | CONS ---
DATE OF CONSULTATION: DATE OF DICTATION: 03/29/2018 CARDIOLOGY CONSULTATION REQUESTING PHYSICIAN: Consultation requested by Gareth Yusuf M.D. CHIEF COMPLAINT: 1. Palpitations. 2. Recurring watery diarrhea. HISTORY OF PRESENT ILLNESS: The patient is a [id number] female with history of hypertension, mitral valvular disease, mitral valve prolapse, paroxysmal atrial fibrillation, sick sinus syndrome status post permanent pacemaker, fibrillary glomerulonephritis, renal insufficiency, history of hyperuricemia, diabetes mellitus, left ventricular diastolic dysfunction. Patient came to the office on March 28, 2018, with complaints of recurring episodes of palpitations. She recently had been placed on amiodarone because of episodes of paroxysmal atrial fibrillation. While she was in the office, she was having repeated episodes of watery diarrhea. On questioning, found out she was having diarrhea for several weeks and has been progressively having frequent bowel movements, usually after eating. There is no history of abdominal pain or discomfort. There is no history of nausea or vomiting. She denies having chest pain or discomfort either at rest or with exertion, history of mild dyspnea on exertion, no history of paroxysmal nocturnal dyspnea or orthopnea. While she was in the office, she was noted to have lightheadedness with change in posture, and there was a 10-mm drop in blood pressure on standing. PAST HISTORY: As mentioned in the history of present illness. SURGICAL HISTORY: 1. Status post hysterectomy. 2. Status post herniorrhaphy. 3. Status post . 4. Status post right knee replacement. SOCIAL HISTORY: Retired, has 1 daughter, never smoked, does not drink. FAMILY HISTORY: Both parents are , and there is history of dementia and diabetes mellitus. ALLERGIES: 1. Intolerant to NITROGLYCERIN (headaches). 2. NIFEDIPINE, patient had difficulty in breathing. CURRENT MEDICATIONS: 1. Warfarin 7.5 mg p.o. daily. 2. Allopurinol 150 mg p.o. daily. 3. Mirapex 0.25 mg p.o. at bedtime. 4. Novolog insulin by sliding scale. 5. Iron supplements 1 p.o. daily. 6. Tylenol 650 mg p.o. q.4 h. p.r.n. 7. Ferrous sulfate 325 mg p.o. daily. 8. Vitamin D3 2000 units p.o. daily. REVIEW OF SYSTEMS: Constitutional: No history of chills, fever, or night sweats. No history of unintentional weight loss. HEENT: No history of recent headaches, diplopia, blurred vision reported. No history of epistaxis, hoarseness, tinnitus, or deafness reported. Cardiovascular: See history of present illness. Respiratory: No history of cough, expectoration or hemoptysis. Gastrointestinal: See history of present illness. Neurological: No history of seizures, syncope, or focal weakness. History of restless leg syndrome. Musculoskeletal: No history of myalgias or arthralgias reported. Endocrine: No history of polyuria, polydipsia. No history of intolerance to cold or warm weather. Genitourinary: History of fibrillary glomerulonephritis and chronic kidney disease. PHYSICAL EXAMINATION: General: A 72-year-old female who is complaining of recurring watery diarrhea. There was no pallor, cyanosis, clubbing, or jaundice. Vital signs: Weight was not recorded. Blood pressure is 131/73 mmHg. On admission, blood pressure was 96/56 mmHg. Pulse is 67 beats per minute and regular. Respirations 16 per minute. Temperature 97.8 degrees Fahrenheit. Neck: Supple. No jugulovenous distention, carotids were 2+, upstrokes were normal, no bruits were heard, and no thyromegaly was present. Heart: PMI was in the 5th intercostal space, no heaves or thrills. S1 and S2 were normal. Nonejection systolic click was heard along the left sternal border. No murmur or gallops were appreciated. Lungs: Clear on auscultation. Abdomen: Protuberant, soft and nontender, no hepatosplenomegaly was appreciated, no palpable masses were felt. Bowel sounds were hyperactive. No bruits were heard. Extremities: No calf tenderness or dependent edema. There was a well healed surgical scar over the right knee. Pulses were equal. ECG of March 28, 2018: atrial based rhythm with prolonged AV conduction. T wave abnormalities. Consider ischemia. When compared to ECG of 07 November 2016: 1. Electronic atrial pacemaker has replaced sinus rhythm. 2. T wave inversions now evident in serial leads. 3. T wave inversions now evident in lateral leads. 4. Ventricular rate has increased. X-ray chest, impression: new pacemaker. LABORATORY DATA: On March 29, 2018: WBC count 8800, hemoglobin 9.4 g/dL, platelet count 158,000. Differential reveals slight elevation of eosinophils at 5.0%. Lymphocytes were 19.6%. Neutrophils 66%. Chemistry March 29, 2018: sodium 142, potassium 4.2, chloride 110, CO2 of 22 mmol/L, BUN 55, creatinine 3.3 mg/dL. Random glucose was 142 mg/dL. Magnesium 1.7 mg/dL. BNP was 583.73 on admission. CK was 98, troponin was 0.07. IMPRESSION: 1. Paroxysmal atrial fibrillation, currently in sinus rhythm. 2. Sick sinus syndrome, status post permanent pacemaker. 3. Diarrhea, etiology to be determined. 4. Hypertension, hypertensive cardiovascular disease. 5. Dehydration. 6. Chronic kidney disease with probable acute kidney injury. 7. Hypertension, hypertensive cardiovascular disease. 8. History of diabetes mellitus. 9. Fibrillary glomerulonephritis. RECOMMENDATION: 1. Concur with hydration. 2. GI evaluation. 3. Close followup of renal function. 4. Correction of serum magnesium level. 5. Resume amiodarone 200 mg p.o. b.i.d. 6. Further suggestion as necessary. Thank you for your referral. Yours sincerely, TIMBO MOREIRA M.D. [id number]
[2018-03-29 20:16] LABS: URINE APPEARANCE CLEAR; URINE BILIRUBIN NEGATIVE (<2.0 mg/dL); URINE BLOOD 2+ (NEGATIVE); URINE COLOR STRAW; URINE GLUCOSE (UA) NEGATIVE (NEGATIVE); URINE KETONE NEGATIVE (NEGATIVE); URINE LEUK ESTERASE NEGATIVE (NEGATIVE); URINE NITRITE NEGATIVE (NEGATIVE); URINE UROBILINOGEN NEGATIVE mg/dL (0.2-1.0)
[2018-03-29 20:23] LABS: URINE PROTEIN 2+ (NEGATIVE)
[2018-03-29 20:33] LABS: EPI CELLS RARE /HPF (FEW)
[2018-03-29] MEDS: PRAMIPEXOLE DIHYDROCHLORIDE 0.25 MG TABLET PO SCH (22:01)
[2018-03-30] MEDS: INSULIN SLIDING SCALE (NOVOLOG) 1 VIAL SQ SCH ×2 (06:09→11:44)
[2018-03-30 06:46] LABS: BASO % 0.9 % (0-2.0); HEMATOCRIT 30.3 % (32.4-45.2); HEMOGLOBIN 9.8 GM/dL (10.7-15.3); LYMPH % 20.7 % (8-40); MCH 27.9 pg (25.7-33.7); MCHC 32.4 g/dl (32.0-36.0); MEAN CELL VOLUME 86.1 fl (80-96); MEAN PLT VOLUME 11.5 fl (7.5-11.1); MONO % 8.9 % (3.8-10.2); NEUT % 64.5 % (42.8-82.8); PLATELET COUNT 159 K/MM3 (134-434); RBC 3.53 M/mm3 (3.60-5.2); RDW 16.5 % (11.6-15.6); WHITE BLOOD COUNT 8.5 K/mm3 (4.0-10.0)
[2018-03-30 07:00] LABS: PROTHROMBIN TIME (PATIENT) 22.6 SEC (9.7-13.0)
[2018-03-30 07:29] LABS: ALBUMIN 3.2 g/dl (3.4-5.0); ALK PHOS 78 U/L (45-117); ANION GAP 9 (8-16); BILIRUBIN,TOTAL 0.2 mg/dL (0.2-1.0); BLOOD UREA NITROGEN 46 mg/dL (7-18); CALCIUM 8.2 mg/dL (8.5-10.1); CHLORIDE 111 mmol/L (98-107); CO2 23 mmol/L (21-32); CREATININE 2.5 mg/dL (0.55-1.02); GLUCOSE,RANDOM 129 mg/dL (74-106); MAGNESIUM 2.5 mg/dL (1.8-2.4); PHOSPHOROUS 3.4 mg/dL (2.5-4.9); POTASSIUM 4.4 mmol/L (3.5-5.1); SGOT/AST 13 U/L (15-37); SGPT/ALT 15 U/L (12-78); SODIUM 143 mmol/L (136-145); TOT PROT 6.6 g/dl (6.4-8.2)
--- NOTE | 2018-03-30 08:53 | PN ---
Progress Note (short form) - Note Progress Note: Dr. Yusuf to document today. CT abd being done today.
[2018-03-30] MEDS: FERROUS SO4 325 MG TABLET (FP) PO SCH ×2 (09:14→17:09)
[2018-03-30] MEDS: CHOLECALCIFEROL (VITAMIN D3) 1,000 UNIT TABLET (FP) PO SCH (10:16)
[2018-03-30] MEDS: ALLOPURINOL 300 MG TABLET (FP) PO SCH (10:16)
--- NOTE | 2018-03-30 11:47 | PN ---
Progress Note, Physician Chief Complaint: Ms Gray says she is feeling better. Still with loose stool but improved. No cp , sob, n/v. - Current Medication List Current Medications: Active Medications Acetaminophen (Tylenol -) 650 mg PO Q4H PRN PRN Reason: PAIN LEVEL 1-5 Allopurinol (Zyloprim -) 150 mg PO DAILY [facility] Last Admin: 03/30/18 10:16 Dose: 150 mg Cholecalciferol (Vitamin D3 -) 2,000 unit PO DAILY [facility] Last Admin: 03/30/18 10:16 Dose: 2,000 unit Ferrous Sulfate (Feosol -) 325 mg PO BIDWM [facility] Last Admin: 03/30/18 09:14 Dose: 325 mg Sodium Chloride (Normal Saline -) 1,000 mls @ 50 mls/hr IV ASDIR [facility] Stop: 03/30/18 16:54 Last Admin: 03/29/18 22:00 Dose: 50 mls/hr Insulin Aspart (Novolog Vial Sliding Scale -) 1 vial SQ ACHS [facility] PRN Reason: Protocol Last Admin: 03/30/18 11:44 Dose: Not Given Non-Formulary Medication (Iron [Iron]) 1 tab PO DAILY [facility] Pramipexole Dihydrochloride (Mirapex -) 0.25 mg PO HS [facility] Last Admin: 03/29/18 22:01 Dose: Not Given Warfarin Sodium (Coumadin -) 5 mg PO DAILY@1800 [facility] Warfarin Sodium (Coumadin -) 10 mg PO WE [facility] - Objective Vital Signs: Vital Signs Temperature 36.7 C 03/30/18 10:00 Pulse Rate 69 03/30/18 10:00 Respiratory Rate 18 03/30/18 10:00 Blood Pressure 141/76 03/30/18 10:00 O2 Sat by Pulse Oximetry (%) 97 03/29/18 23:50 Constitutional: Yes: Well Nourished, No Distress, Calm Cardiovascular: Yes: Regular Rate and Rhythm. No: Gallop, Murmur, Rub Respiratory: Yes: Regular, CTA Bilaterally. No: Rales, Rhonchi, Wheezes Gastrointestinal: Yes: Normal Bowel Sounds, Soft. No: Distention, Tenderness Extremities: Yes: WNL Edema: Yes Edema: LLE: 1+, RLE: 1+ Labs: CBC, BMP 03/30/18 05:35 03/30/18 05:35 INR, PTT INR 2.00 (0.82-1.09) H 03/30/18 05:35 Problem List - Problems (1) Acute renal insufficiency Code(s): N28.9 - DISORDER OF KIDNEY AND URETER, UNSPECIFIED (2) Chronic renal disease Code(s): N18.9 - CHRONIC KIDNEY DISEASE, UNSPECIFIED Qualifiers: Chronic kidney disease stage: stage 3 (moderate) Qualified Code(s): N18.3 - Chronic kidney disease, stage 3 (moderate) (3) Palpitations Code(s): R00.2 - PALPITATIONS (4) Diarrhea Code(s): R19.7 - DIARRHEA, UNSPECIFIED (5) Diabetes Code(s): E11.9 - TYPE 2 DIABETES MELLITUS WITHOUT COMPLICATIONS Qualifiers: Diabetes mellitus type: type 1 (6) Gout Code(s): M10.9 - GOUT, UNSPECIFIED (7) Hypertension Code(s): I10 - ESSENTIAL (PRIMARY) HYPERTENSION Qualifiers: Hypertension type: essential hypertension Qualified Code(s): I10 - Essential (primary) hypertension (8) Restless leg syndrome, controlled Code(s): G25.81 - RESTLESS LEGS SYNDROME (9) Paroxysmal atrial fibrillation Code(s): I48.0 - PAROXYSMAL ATRIAL FIBRILLATION (10) Left ventricular diastolic dysfunction Code(s): I51.9 - HEART DISEASE, UNSPECIFIED Assessment/Plan (1) Acute renal insufficiency Assessment/Plan: -case d/w Dr Mattson -decrease IVF rate today -monitor creatinine -continue holding diuretics -continue holding losartan Code(s): N28.9 - DISORDER OF KIDNEY AND URETER, UNSPECIFIED (2) Chronic renal disease Assessment/Plan: -as above -approaching baseline Code(s): N18.9 - CHRONIC KIDNEY DISEASE, UNSPECIFIED Qualifiers: Chronic kidney disease stage: stage 3 (moderate) Qualified Code(s): N18.3 - Chronic kidney disease, stage 3 (moderate) (3) Palpitations Assessment/Plan: -cardiology following and note reviewed -reviewed Dr Porter's note -Dr Porter states to restart amiodarone 200mg bid -will order per his recommendations Code(s): R00.2 - PALPITATIONS (4) Diarrhea Assessment/Plan: -appreciate GI assistance -Dr Marie's note reviewed -CT scan A/P evaluated and official read reviewed -c diff negative -CT scan not showing impaction -follow up further GI recs Code(s): R19.7 - DIARRHEA, UNSPECIFIED (5) Diabetes Assessment/Plan: -diabetic diet -can stop FSBS and SSI Code(s): E11.9 - TYPE 2 DIABETES MELLITUS WITHOUT COMPLICATIONS Qualifiers: Diabetes mellitus type: type 1 (6) Gout Assessment/Plan: -continue allopurinol -not in flare Code(s): M10.9 - GOUT, UNSPECIFIED (7) Hypertension Assessment/Plan: -improved but still low normal -holding diuretics and ARBs as above -will also hold hydralazine -may need to restart soon Code(s): I10 - ESSENTIAL (PRIMARY) HYPERTENSION Qualifiers: Hypertension type: essential hypertension Qualified Code(s): I10 - Essential (primary) hypertension (8) Restless leg syndrome, controlled Assessment/Plan: -continue pramipexole Code(s): G25.81 - RESTLESS LEGS SYNDROME (9) Paroxysmal atrial fibrillation Assessment/Plan: -currently in sinus rhythm -restart amiodarone as above -patient says she takes coumadin 10mg TW and 5mg every other day -restart home regimen Code(s): I48.0 - PAROXYSMAL ATRIAL FIBRILLATION
--- NOTE | 2018-03-30 12:32 | PN ---
GI Progress Note Subjective: GI NOte: CT reveals no colitis or fecal impaction. She did have a large bowel movement following the CT contrast and feels less bloated today. Had had only 1 semiformed BM today. Stool studies still being collected. - Objective Vital Signs: Vital Signs Temperature 98.1 F 03/30/18 10:00 Pulse Rate 69 03/30/18 10:00 Respiratory Rate 18 03/30/18 10:00 Blood Pressure 141/76 03/30/18 10:00 O2 Sat by Pulse Oximetry (%) 97 03/29/18 23:50 Constitutional: No Distress ...Auscultate: Yes: Normoactive Bowel Sounds ...Palpate: Yes: Soft, Other (nontender) Labs: CBC, BMP 03/30/18 05:35 03/30/18 05:35 INR, PTT INR 2.00 (0.82-1.09) H 03/30/18 05:35 Problem List - Problems (1) Diarrhea Assessment/Plan: Await stool studies. Hoping that the CT contrast has relieved a fecal impaction and rest the colon for formed stools. Code(s): R19.7 - DIARRHEA, UNSPECIFIED (2) Colon adenoma Code(s): D12.6 - BENIGN NEOPLASM OF COLON, UNSPECIFIED (3) Diverticulosis Code(s): K57.90 - DVRTCLOS OF INTEST, PART UNSP, W/O PERF OR ABSCESS W/O BLEED (4) Hiatal hernia Code(s): K44.9 - DIAPHRAGMATIC HERNIA WITHOUT OBSTRUCTION OR GANGRENE
--- NOTE | 2018-03-30 12:50 | PN ---
Progress Note, Physician History of Present Illness: Pt seen and examined at bedside. She denies dysuria or hematuria. She still has loose bowel movements. She denies shortness of breath. - Current Medication List Current Medications: Active Medications Acetaminophen (Tylenol -) 650 mg PO Q4H PRN PRN Reason: PAIN LEVEL 1-5 Allopurinol (Zyloprim -) 150 mg PO DAILY [facility] [place] Last Admin: 03/30/18 10:16 Dose: 150 mg Cholecalciferol (Vitamin D3 -) 2,000 unit PO DAILY [facility] [place] Last Admin: 03/30/18 10:16 Dose: 2,000 unit Ferrous Sulfate (Feosol -) 325 mg PO BIDWM [facility] [place] Last Admin: 03/30/18 09:14 Dose: 325 mg Sodium Chloride (Normal Saline -) 1,000 mls @ 50 mls/hr IV ASDIR [facility] [place] Stop: 03/30/18 16:54 Last Admin: 03/29/18 22:00 Dose: 50 mls/hr Insulin Aspart (Novolog Vial Sliding Scale -) 1 vial SQ ACHS [facility] PRN Reason: Protocol Last Admin: 03/30/18 11:44 Dose: Not Given Non-Formulary Medication (Iron [Iron]) 1 tab PO DAILY [facility] [place] Pramipexole Dihydrochloride (Mirapex -) 0.25 mg PO HS [facility] Last Admin: 03/29/18 22:01 Dose: Not Given Warfarin Sodium (Coumadin -) 5 mg PO SuMoThFrSa@1800 [facility] Warfarin Sodium (Coumadin -) 10 mg PO TuWe@1800 [facility] - Objective Vital Signs: Vital Signs Temperature 98.1 F 03/30/18 10:00 Pulse Rate 69 03/30/18 10:00 Respiratory Rate 18 03/30/18 10:00 Blood Pressure 141/76 03/30/18 10:00 O2 Sat by Pulse Oximetry (%) 97 03/29/18 23:50 Constitutional: Yes: Calm Eyes: Yes: Conjunctiva Clear HENT: Yes: Atraumatic Neck: Yes: Supple Cardiovascular: Yes: S1, S2 Respiratory: Yes: CTA Bilaterally Gastrointestinal: Yes: Soft, Abdomen, Obese Genitourinary: Yes: WNL Musculoskeletal: Yes: WNL Extremities: Yes: WNL Edema: LLE: Trace, RLE: Trace Neurological: Yes: Oriented Psychiatric: Yes: Oriented Labs: CBC, BMP 03/30/18 05:35 05/02/18 05:35 INR, PTT INR 2.00 (0.82-1.09) H 03/30/18 05:35 Problem List - Problems (1) Diarrhea Code(s): R19.7 - DIARRHEA, UNSPECIFIED (2) Acute renal insufficiency Code(s): N28.9 - DISORDER OF KIDNEY AND URETER, UNSPECIFIED (3) Chronic renal disease Code(s): N18.9 - CHRONIC KIDNEY DISEASE, UNSPECIFIED Qualifiers: Chronic kidney disease stage: stage 3 (moderate) Qualified Code(s): N18.3 - Chronic kidney disease, stage 3 (moderate) Assessment/Plan Current Medications Generic Name Dose Route Start Last Admin Trade Name Freq PRN Reason Stop Dose Admin Acetaminophen 650 mg 03/28/18 16:52 Tylenol - PO Q4H PRN PAIN LEVEL 1-5 Allopurinol 150 mg 03/29/18 10:00 03/30/18 10:16 Zyloprim - PO 150 mg DAILY [facility] [place] Administration Cholecalciferol 2,000 unit 03/29/18 10:00 03/30/18 10:16 Vitamin D3 - PO 2,000 unit DAILY [facility] Administration Ferrous Sulfate 325 mg 03/29/18 17:30 03/30/18 09:14 Feosol - PO 325 mg BIDWM [facility] Administration Sodium Chloride 1,000 mls @ 50 mls/hr 03/28/18 17:00 03/29/18 22:00 Normal Saline - IV 03/30/18 16:54 50 mls/hr ASDIR [facility] [place] Administration Insulin Aspart 1 vial 03/28/18 22:00 03/30/18 11:44 Novolog Vial Sliding Scale - SQ Not Given ACHS [facility] [place] Protocol Non-Formulary Medication 1 tab 03/29/18 10:00 Iron [Iron] PO DAILY [facility] [place] Pramipexole Dihydrochloride 0.25 mg 03/28/18 22:00 03/29/18 22:01 Mirapex - PO Not Given HS [facility] [place] Warfarin Sodium 5 mg 03/31/18 18:00 Coumadin - PO SuMoThFrSa@1800 [facility] [place] Warfarin Sodium 10 mg 03/30/18 18:00 Coumadin - PO TuWe@1800 [facility] Impression 1. CKD 2. fibrillary GN 3. HTN 4. DM 5. palpitations 6. anemia 7. SUMEET 8. diarrhea Plan - renal function continues to improve - will decrease fluids further - repeat labs in am - diuretics and losartan on hold - will likely decrease diuretics on discharge - renal ultrasound reviewed - UA reviewed - will follow Dr Mattson
[2018-03-30] MEDS ORDERED: SODIUM CHLORIDE 1,000 ML IV SCH (13:15)
--- NOTE | 2018-03-30 13:28 | PN ---
Progress Note (short form) - Note Progress Note: S: 72 year old female with history of hypertension, mitral valvular disease, mitral valve prolapse, paroxysmal atrial fibrillation, sick sinus syndrome status post pacemaker, fibrillary glomerularnephritis, renal insufficiency, history of hyperuricemia, diabetes mellitus, left ventricular dysfunction. No further episodes of palpitations. No shortness of breath has been reported, lightheadedness or dizziness. Diarrheal episodes have decreased and according to the patient she has been told that they may be related to impaction. Active Medications Generic Name Dose Route Start Last Admin Trade Name Freq PRN Reason Stop Dose Admin Acetaminophen 650 mg 03/28/18 16:52 Tylenol - PO Q4H PRN PAIN LEVEL 1-5 Allopurinol 150 mg 03/29/18 10:00 03/30/18 10:16 Zyloprim - PO 150 mg DAILY [facility] Administration Amiodarone HCl 200 mg 03/30/18 13:30 Cordarone - PO BID [facility] Cholecalciferol 2,000 unit 03/29/18 10:00 03/30/18 10:16 Vitamin D3 - PO 2,000 unit DAILY [facility] Administration Ferrous Sulfate 325 mg 03/29/18 17:30 03/30/18 09:14 Feosol - PO 325 mg BIDWM [facility] Administration Sodium Chloride 1,000 mls @ 30 mls/hr 03/30/18 13:15 Normal Saline - IV 03/30/18 16:54 ASDIR [facility] Insulin Aspart 1 vial 03/28/18 22:00 03/30/18 11:44 Novolog Vial Sliding Scale - SQ Not Given ACHS [facility] Protocol Non-Formulary Medication 1 tab 03/29/18 10:00 Iron [Iron] PO DAILY [facility] Pramipexole Dihydrochloride 0.25 mg 03/28/18 22:00 03/29/18 22:01 Mirapex - PO Not Given HS [facility] Warfarin Sodium 5 mg 03/31/18 18:00 Coumadin - PO SuMoThFrSa@1800 [facility] Warfarin Sodium 10 mg 03/30/18 18:00 Coumadin - PO TuWe@1800 [facility] O: 72 year old female was in no acute distress, no pallor, cyanosis, clubbing, or jaundice. Last Vital Signs Temp Pulse Resp BP Pulse Ox 98.1 F 69 18 141/76 97 03/30/18 10:00 03/30/18 10:03/30/18 10:03/30/18 10:03/29/18 23:50 Neck: Supple, no JVD, negative HJR, carotids were equal and upstrokes were normal, no thyromegaly appreciated. Heart: PMI was in the 5th intercostal space, no heaves or thrills, S1 and S2 were normal. No murmurs or gallops were appreciated. Lungs: Clear on auscultation bilaterally. Abdomen: Soft, nontender, no hepatosplenomegaly appreciated, and no palpable masses were felt. Extremities: No calf tenderness or dependent edema. Pulses are normal. CBC, BMP 03/30/18 05:35 03/30/18 05:35 IMPRESSION: 1. Palpitations related to paroxysmal atrial fibrillation, presently in sinus rhythm. 2. Hypertension/ Hypertensive cardiovascular disease. 3. Chronic kidney disease. 4. fibrillary glomerularnephritis 5. Persistent diarrhea, etiology to be determined. 6. Mitral valve prolapse. 7. Diabetes mellitus 8. Sick sinus syndrome. 9. Status post permanent pacemaker. 10. Hyperuricemia. 11. Left ventricular diastolic dysfunction. RECOMMENDATION: 1. Resume Amiodarone 2. T3 T4 TSH 3. Increase ambulation.
[2018-03-30] MEDS: AMIODARONE HCL 200 MG TABLET (FP) PO SCH ×2 (14:46→22:18)
[2018-03-30] MEDS ORDERED: WARFARIN NA 10 MG TABLET (FP) PO SCH (18:00)
[2018-03-30] MEDS ORDERED: PT OWN MED DRAWER 7, Y5N ONE (22:14)
[2018-03-30] MEDS: PRAMIPEXOLE DIHYDROCHLORIDE 0.25 MG TABLET PO SCH (22:18)
[2018-03-31 06:36] LABS: BASO % 0.8 % (0-2.0); HEMATOCRIT 27.8 % (32.4-45.2); HEMOGLOBIN 9.2 GM/dL (10.7-15.3); LYMPH % 21.2 % (8-40); MCH 28.1 pg (25.7-33.7); MEAN PLT VOLUME 11.8 fl (7.5-11.1); MONO % 9.3 % (3.8-10.2); NEUT % 64.7 % (42.8-82.8); PLATELET COUNT 156 K/MM3 (134-434); RBC 3.27 M/mm3 (3.60-5.2); RDW 16.1 % (11.6-15.6); WHITE BLOOD COUNT 7.2 K/mm3 (4.0-10.0)
[2018-03-31 06:50] LABS: INR 2.3 (0.82-1.09)
[2018-03-31 07:06] LABS: ANION GAP 10 (8-16); BLOOD UREA NITROGEN 46 mg/dL (7-18); CALCIUM 8.1 mg/dL (8.5-10.1); CHLORIDE 112 mmol/L (98-107); CO2 21 mmol/L (21-32); GLUCOSE,RANDOM 125 mg/dL (74-106); MAGNESIUM 2.5 mg/dL (1.8-2.4); POTASSIUM 4.7 mmol/L (3.5-5.1); SODIUM 143 mmol/L (136-145)
[2018-03-31 07:09] LABS: CREATININE 2.4 mg/dL (0.55-1.02); PHOSPHOROUS 3.4 mg/dL (2.5-4.9)
--- NOTE | 2018-03-31 08:55 | PN ---
Progress Note (short form) - Note Progress Note: Dr. Yusuf to document today. CT noted; ? autonomic neuroparhy/gastric paresis
[2018-03-31] MEDS: AMIODARONE HCL 200 MG TABLET (FP) PO SCH (09:07)
[2018-03-31] MEDS: CHOLECALCIFEROL (VITAMIN D3) 1,000 UNIT TABLET (FP) PO SCH (09:07)
[2018-03-31] MEDS: ALLOPURINOL 300 MG TABLET (FP) PO SCH (09:07)
[2018-03-31] MEDS: FERROUS SO4 325 MG TABLET (FP) PO SCH (09:08)
[2018-03-31 13:37] VITALS: BP 150/75; PULSE 68; TEMP 98.2
--- NOTE | 2018-03-31 14:05 | DS ---
Physical Examination Vital Signs: Vital Signs Temperature 36.8 C 03/31/18 13:35 Pulse Rate 68 03/31/18 13:35 Respiratory Rate 18 03/31/18 13:35 Blood Pressure 150/75 03/31/18 13:35 O2 Sat by Pulse Oximetry (%) 98 03/31/18 09:00 Constitutional: Yes: Well Nourished, No Distress, Calm Cardiovascular: Yes: Regular Rate and Rhythm. No: Gallop, Murmur, Rub Respiratory: Yes: Regular, CTA Bilaterally. No: Rales, Rhonchi, Wheezes Gastrointestinal: Yes: Normal Bowel Sounds, Soft. No: Distention, Tenderness Extremities: Yes: WNL Edema: No Labs: CBC, BMP 03/31/18 05:35 03/31/18 05:35 Discharge Summary Reason For Visit: DIARRHEA Current Active Problems Colon adenoma (Acute) Diarrhea (Acute) Diverticulosis (Acute) Hiatal hernia (Acute) Restless leg syndrome, controlled (Acute) Hospital Course: (1) Acute renal insufficiency Code(s): N28.9 - DISORDER OF KIDNEY AND URETER, UNSPECIFIED (2) Chronic renal disease Code(s): N18.9 - CHRONIC KIDNEY DISEASE, UNSPECIFIED Qualifiers: Chronic kidney disease stage: stage 3 (moderate) Qualified Code(s): N18.3 - Chronic kidney disease, stage 3 (moderate) (3) Palpitations Code(s): R00.2 - PALPITATIONS (4) Diarrhea Code(s): R19.7 - DIARRHEA, UNSPECIFIED (5) Diabetes Code(s): E11.9 - TYPE 2 DIABETES MELLITUS WITHOUT COMPLICATIONS Qualifiers: Diabetes mellitus type: type 1 (6) Gout Code(s): M10.9 - GOUT, UNSPECIFIED (7) Hypertension Code(s): I10 - ESSENTIAL (PRIMARY) HYPERTENSION Qualifiers: Hypertension type: essential hypertension Qualified Code(s): I10 - Essential (primary) hypertension (8) Restless leg syndrome, controlled Code(s): G25.81 - RESTLESS LEGS SYNDROME (9) Paroxysmal atrial fibrillation Code(s): I48.0 - PAROXYSMAL ATRIAL FIBRILLATION (10) Left ventricular diastolic dysfunction Code(s): I51.9 - HEART DISEASE, UNSPECIFIED Ms Gray is a very pleasant 72 year old female who comes in with diarrhea and palpitations. Upon presentation she was found to be dehydrated and with SUMEET. she was admitted telemetry considering her palpitations and PAF. All her blood pressure medications were held since she was hypotensive from dehydration. She was gently hydrated with NS. Nephrology was consulted and managed her IVF. Her renal function is now at baseline. She was seen by GI and underwent CT scan of the abdomen and pelvis. Of note she had a very large bowel movement secondary to the contrast. No impaction was found but question if impaction resolved with contrast as she no longer had diarrhea after this. Cardiology consulted and she was placed back on her amiodarone. Currently she is doing well and says this is the best she felt in a while. She is safe for discharge home with close follow up. Her losartan HCT was changed to losartan and her diuretics were change to q48 hours. 34 minutes spent in preparation of this discharge Condition: Good - Instructions Referrals: Brodie Wright MD [Primary Care Provider] - 1 Week Buddy Liang MD [Staff Physician] - Jake Porter MD [Staff Physician] - Rosendo Marie MD [Staff Physician] - Disposition: HOME - Home Medications Comprehensive Discharge Medication List: Ambulatory Orders Allopurinol [Zyloprim -] 300 mg PO DAILY 11/07/16 Doxazosin Mesylate [Cardura -] 2 mg PO DAILY 11/07/16 Iron 1 tab PO DAILY 11/07/16 Bumetanide [Bumex -] 1 tab PO DAILY PRN 09/13/17 Cholecalciferol (Vitamin D3) [Vitamin D3] 1 cap PO DAILY 09/13/17 Amiodarone HCl [Cordarone -] 200 mg PO BID #60 tablet 03/31/18 Losartan Potassium 100 mg PO DAILY #30 tablet 03/31/18 Pramipexole Dihydrochloride [Mirapex -] 0.25 mg PO HS tablet 03/31/18 Spironolactone [Aldactone -] 25 mg PO Q48H #0 tab 03/31/18 Warfarin Na [Coumadin -] 5 mg PO SuMoThFrSa@1800 tablet 03/31/18 Warfarin Na [Coumadin -] 10 mg PO TuWe@1800 tablet 03/31/18
--- NOTE | 2018-03-31 15:04 | PN ---
Progress Note, Physician History of Present Illness: Pt seen and examined at bedside. She is awake and alert. She has not had any diarrhea today. - Current Medication List Current Medications: Active Medications Acetaminophen (Tylenol -) 650 mg PO Q4H PRN PRN Reason: PAIN LEVEL 1-5 Allopurinol (Zyloprim -) 150 mg PO DAILY [facility] Last Admin: 03/31/18 09:07 Dose: 150 mg Amiodarone HCl (Cordarone -) 200 mg PO BID [facility] Last Admin: 03/31/18 09:07 Dose: 200 mg Cholecalciferol (Vitamin D3 -) 2,000 unit PO DAILY [facility] Last Admin: 03/31/18 09:07 Dose: 2,000 unit Ferrous Sulfate (Feosol -) 325 mg PO BIDWM [facility] Last Admin: 03/31/18 09:08 Dose: 325 mg Pramipexole Dihydrochloride (Mirapex -) 0.25 mg PO HS [facility] Last Admin: 03/30/18 22:18 Dose: Not Given Warfarin Sodium (Coumadin -) 5 mg PO SuMoThFrSa@1800 [facility] Warfarin Sodium (Coumadin -) 10 mg PO TuWe@1800 [facility] Last Admin: 03/30/18 17:09 Dose: 10 mg - Objective Vital Signs: Vital Signs Temperature 98.2 F 03/31/18 13:35 Pulse Rate 68 03/31/18 13:35 Respiratory Rate 18 03/31/18 13:35 Blood Pressure 150/75 03/31/18 13:35 O2 Sat by Pulse Oximetry (%) 98 03/31/18 09:00 Constitutional: Yes: Calm Eyes: Yes: Conjunctiva Clear HENT: Yes: Atraumatic Neck: Yes: Supple Cardiovascular: Yes: S1, S2 Respiratory: Yes: CTA Bilaterally Gastrointestinal: Yes: Normal Bowel Sounds, Soft Genitourinary: Yes: WNL Musculoskeletal: Yes: WNL Edema: No Neurological: Yes: Oriented Psychiatric: Yes: Oriented Labs: CBC, BMP 03/31/18 05:35 03/31/18 05:35 INR, PTT INR 2.30 (0.82-1.09) H 03/31/18 05:35 Problem List - Problems (1) Diarrhea Code(s): R19.7 - DIARRHEA, UNSPECIFIED (2) Acute renal insufficiency Code(s): N28.9 - DISORDER OF KIDNEY AND URETER, UNSPECIFIED (3) Chronic renal disease Code(s): N18.9 - CHRONIC KIDNEY DISEASE, UNSPECIFIED Qualifiers: Chronic kidney disease stage: stage 3 (moderate) Qualified Code(s): N18.3 - Chronic kidney disease, stage 3 (moderate) Assessment/Plan Current Medications Generic Name Dose Route Start Last Admin Trade Name Freq PRN Reason Stop Dose Admin Acetaminophen 650 mg 03/28/18 16:52 Tylenol - PO Q4H PRN PAIN LEVEL 1-5 Allopurinol 150 mg 03/29/18 10:00 03/31/18 09:07 Zyloprim - PO 150 mg DAILY [facility] Administration Amiodarone HCl 200 mg 03/30/18 13:30 03/31/18 09:07 Cordarone - PO 200 mg BID [facility] Administration Cholecalciferol 2,000 unit 03/29/18 10:00 03/31/18 09:07 Vitamin D3 - PO 2,000 unit DAILY [facility] Administration Ferrous Sulfate 325 mg 03/29/18 17:30 03/31/18 09:08 Feosol - PO 325 mg BIDWM [facility] Administration Pramipexole Dihydrochloride 0.25 mg 03/28/18 22:00 03/30/18 22:18 Mirapex - PO Not Given HS [facility] Warfarin Sodium 5 mg 03/31/18 18:00 Coumadin - PO SuMoThFrSa@1800 [facility] Warfarin Sodium 10 mg 03/30/18 18:00 03/30/18 17:09 Coumadin - PO 10 mg TuWe@1800 [facility] Administration Impression 1. CKD 2. fibrillary GN 3. HTN 4. DM 5. palpitations 6. anemia 7. SUMEET 8. diarrhea Plan - restart losartan - stop hctz - cont spironolactone - bumex every other day - will need to monitor volume status closely - pt to see her nephrology and primary next week - discussed with primary team - will follow Dr Mattson
--- NOTE | 2018-03-31 15:25 | PN ---
Progress Note (short form) - Note Progress Note: S: 72 year old female with history of hypertension, mitral valvular disease, mitral valve prolapse, paroxysmal atrial fibrillation, sick sinus syndrome status post pacemaker, fibrillary glomerularnephritis, renal insufficiency, history of hyperuricemia, diabetes mellitus, left ventricular dysfunction. No further diarrhea, no chest pain or discomfort. Denies having dyspnea, no PND or orthopnea. No further palpitations, tolerating her medications. Active Medications Generic Name Dose Route Start Last Admin Trade Name Freq PRN Reason Stop Dose Admin Acetaminophen 650 mg 03/28/18 16:52 Tylenol - PO Q4H PRN PAIN LEVEL 1-5 Allopurinol 150 mg 03/29/18 10:00 03/31/18 09:07 Zyloprim - PO 150 mg DAILY [facility] Administration Amiodarone HCl 200 mg 03/30/18 13:30 03/31/18 09:07 Cordarone - PO 200 mg BID [facility] Administration Cholecalciferol 2,000 unit 03/29/18 10:00 03/31/18 09:07 Vitamin D3 - PO 2,000 unit DAILY [facility] Administration Ferrous Sulfate 325 mg 03/29/18 17:30 03/31/18 09:08 Feosol - PO 325 mg BIDWM [facility] Administration Pramipexole Dihydrochloride 0.25 mg 03/28/18 22:00 03/30/18 22:18 Mirapex - PO Not Given HS [facility] Warfarin Sodium 5 mg 03/31/18 18:00 Coumadin - PO SuMoThFrSa@1800 [facility] Warfarin Sodium 10 mg 03/30/18 18:00 03/30/18 17:09 Coumadin - PO 10 mg TuWe@1800 [facility] Administration O: 72 year old female was in no acute distress, no pallor, cyanosis, clubbing, or jaundice. Last Vital Signs Temp Pulse Resp BP Pulse Ox 98.2 F 68 18 150/75 98 03/31/18 13:35 03/31/18 13:35 03/31/18 13:35 03/31/18 13:35 03/31/18 09:00 Neck: Supple, no JVD, negative HJR, carotids were equal and upstrokes were normal, no thyromegaly appreciated. Heart: PMI was in the 5th intercostal space, no heaves or thrills, S1 and S2 were normal. No murmurs or gallops were appreciated. Lungs: Clear on auscultation bilaterally. Abdomen: Soft, nontender, no hepatosplenomegaly appreciated, and no palpable masses were felt. Extremities: No calf tenderness or dependent edema. Pulses are normal. CBC, BMP 03/31/18 05:35 03/31/18 05:35 IMPRESSION: 1. Palpitations related to paroxysmal atrial fibrillation, presently in sinus rhythm. 2. Hypertension/ Hypertensive cardiovascular disease. 3. Chronic kidney disease. 4. fibrillary glomerularnephritis 5. Persistent diarrhea, etiology to be determined. 6. Mitral valve prolapse. 7. Diabetes mellitus 8. Sick sinus syndrome. 9. Status post permanent pacemaker. 10. Hyperuricemia. 11. Left ventricular diastolic dysfunction. RECOMMENDATION: 1. Increase ambulation. 2. Close f/u of BMP. 3. Discharge when medically stable. 4. Office f/u in 7-10 days.
[2018-03-31] MEDS ORDERED: WARFARIN NA 5 MG TABLET (UD) PO SCH (18:00)
== END 2018-03-31 16:50 | disposition home or self-care (01) | DRG 684 ==
LOC: JER 13:36 → JERBED 16:09 → J5S 20:55 → J4S 03-29 07:36 → OBSVTOIN 03-30 08:52
PROVIDERS: ADMIT Internal Medicine; ATTEND Internal Medicine
DX: N17.9 Acute kidney failure, unspecified (principal); R19.7 Diarrhea, unspecified; E11.22 Type 2 diabetes mellitus with diabetic chronic kidney disease; N18.3 Chronic kidney disease, stage 3 (moderate); M10.9 Gout, unspecified; G25.81 Restless legs syndrome; I48.0 Paroxysmal atrial fibrillation; I34.1 Nonrheumatic mitral (valve) prolapse; Z95.0 Presence of cardiac pacemaker; R00.2 Palpitations; K57.90 Diverticulosis of intestine, part unspecified, without perforation or abscess without bleeding; K44.9 Diaphragmatic hernia without obstruction or gangrene; E86.0 Dehydration; E11.43 Type 2 diabetes mellitus with diabetic autonomic (poly)neuropathy; I13.10 Hypertensive heart and chronic kidney disease without heart failure, with stage 1 through stage 4 chronic kidney disease, or unspecified chronic kidney disease
CPT/HCPCS: 36415; 71045-TC-FY; 74176-TC; 76775-TC; 80048; 80053; 81003; 81015; 82436; 82550; 82570; 82962; 83735; 83880; 84100; 84133; 84300; 84443; 84484; 84586; 85025; 85610; 85730; 87045; 87046; 87205; 87324; 87449; 93005; 93010; 99283-25; G0378; J7030

== ENCOUNTER 2018-07-08 20:54 | Emergency (ER) | payer OTHER, MEDICARE ==
[2018-07-08 21:32] VITALS: BP 124/64; PULSE 69; BMI 26.6
--- NOTE | 2018-07-08 21:50 | PDOC ---
Rapid Medical Evaluation Chief Complaint: Respiratory Medical Evaluation: Allergies Allergy/AdvReac Type Severity Reaction Status Date / Time nifedipine [From Procardia] Allergy "breathing Verified 03/28/18 16:49 problems" nitroglycerin AdvReac "severe Verified 03/28/18 16:49 [From Nitroglyn] headache" Vital Signs Temp Pulse Resp BP Pulse Ox 100.6 F H 69 20 124/64 99 07/08/18 21:29 07/08/18 21:29 07/08/18 21:29 07/08/18 21:29 07/08/18 21:29 07/08/18 21:48 I have performed a [id number] evaluation of this patient. The patient presents with a chief complaints of:fever/101.4 at home/oral temp, chills, cough Jul 01, 2018 TERESA for pre op Jul 04, 2018 Cardiac ablation for a fib Since Jul 05, 2018/non productive cough/fever/chills Pertinent physical exam findings: L/X CTAB, temp 100.4 in triage, RRR. S1,S2 I have ordered the following: CXR, cbc,cmp,lactic acid, ekg, iv insert,BC x2, NS The patient will proceed to the ED for further evaluation. PMHx: Asthma Diabetes NIDDM Diverticulitis Fibrillary Glomerulonephritis Gout HTN MVP A fib RSDS Restless leg syndrome Periodic limb movt disorder Pshx: C sec Left foot cyst removal Hernia repair PM Tonsils R TKR "tubes untied" Allergies: NTG Procardia PMD: Dr. Temo Wright [phone] Nephrology: Dr. Bonilla Liang [phone] Channel Development Director: Dr. Lamas [phone]/Dr. Esdras Porter [phone] Neuro: Dr. Bonilla Schaefer [phone] GI: Dr. Marie [phone] Pulm: Dr. Bonilla Singleton [phone] Bond Underwriter: Dr. Jarrod Harris [phone] Discharge Disposition - Discharge Dispostion Last Admission D/C Date: 03/31/18 - Referrals Referrals: Brodie Wright MD [Primary Care Provider] - - Patient Instructions - Post Discharge Activity
[2018-07-08] MEDS ORDERED: SODIUM CHLORIDE 1,000 ML IV SCH (22:15)
[2018-07-08 22:21] LABS: BASO % 1.1 % (0-2.0); EOS % 3.1 % (0-4.5); HEMOGLOBIN 9.4 GM/dL (10.7-15.3); LYMPH % 8.2 % (8-40); MCH 27.6 pg (25.7-33.7); MCHC 32.5 g/dl (32.0-36.0); MEAN CELL VOLUME 84.9 fl (80-96); MEAN PLT VOLUME 11.5 fl (7.5-11.1); NEUT % 77.6 % (42.8-82.8); PLATELET COUNT 203 K/MM3 (134-434); RBC 3.41 M/mm3 (3.60-5.2); RDW 15.4 % (11.6-15.6)
[2018-07-08 22:34] LABS: PROTHROMBIN TIME (PATIENT) 38.4 SEC (9.7-13.0)
[2018-07-08 22:38] LABS: INR 3.4 (0.83-1.09)
[2018-07-08 22:47] VITALS: TEMP 100.5
[2018-07-08 22:54] LABS: ALBUMIN 2.7 g/dl (3.4-5.0); ALK PHOS 67 U/L (45-117); ANION GAP 8 (8-16); BILIRUBIN,TOTAL 0.3 mg/dL (0.2-1.0); BLOOD UREA NITROGEN 36 mg/dL (7-18); CALCIUM 8.2 mg/dL (8.5-10.1); CHLORIDE 108 mmol/L (98-107); CO2 24 mmol/L (21-32); CREATININE 2.9 mg/dL (0.55-1.02); GLUCOSE,RANDOM 91 mg/dL (74-106); POTASSIUM 5.2 mmol/L (3.5-5.1); SGOT/AST 21 U/L (15-37); SGPT/ALT 22 U/L (12-78); SODIUM 140 mmol/L (136-145); TOT PROT 6.3 g/dl (6.4-8.2)
[2018-07-09 00:27] LABS: URINE APPEARANCE CLOUDY; URINE BILIRUBIN NEGATIVE (<2.0 mg/dL); URINE COLOR YELLOW; URINE GLUCOSE (UA) NEGATIVE (NEGATIVE); URINE KETONE NEGATIVE (NEGATIVE); URINE NITRITE NEGATIVE (NEGATIVE); URINE UROBILINOGEN NEGATIVE mg/dL (0.2-1.0)
[2018-07-09 00:31] LABS: URINE LEUK ESTERASE 3+ (NEGATIVE); URINE PROTEIN 3+ (NEGATIVE)
[2018-07-09 00:32] LABS: EPI CELLS FEW /HPF (FEW); URINE BACTERIA MANY /hpf (NONE SEEN); URINE MUCUS RARE
--- NOTE | 2018-07-09 00:40 | PDOC ---
History of Present Illness - General History Source: Patient Exam Limitations: No Limitations - History of Present Illness Initial Comments: 07/09/18 00:42 The patient is a 73 year old female with a significant PMH of hypertension, CKD , PAF, MVP, diabetes, asthma, anemia, and glomerulonephritis who presents to the emergency department with fever and cough. The patient's daughter reports that the patient had an at home fever of 101.4. The patient states that she had a TERESA 1 week ago, stayed over night and was intubated. The patient reports that her cought has been persistent since wednesday and has been all day and ight. She reports some associated shortness of breath with her cough. She states that she feels a wetness in her chest she reports some episodes of diarrhea and fatigue. She denies any sick contact or recent travel. The patient denies any headache or vision change . she endorses weakness. The patient denies any other symptoms. She denies any chills, vomit, constipation or urinary symptoms. She denies any chest pain, headache and dizziness. The patient denies any other complaints Allergies: NTG, Procardia Past surgical history: C sec, Left foot cyst removal, Hernia repair, PM, Tonsils , R TKR, "tubes untied" PCP: Dr. Wright <Henry Sarah - Last Filed: 07/09/18 00:42> <Chapis Spain - Last Filed: 07/09/18 00:55> - General Chief Complaint: Respiratory Stated Complaint: FEVER, COUGHING Time Seen by Provider: 07/08/18 22:19 Past History <Henry Sarah - Last Filed: 07/09/18 00:42> - Past Medical History Anemia: Yes (LOW COUNT) Asthma: Yes Cancer: No Cardiac Disorders: Yes (MITRAL VALVE prolapse, SVT'S CAUSING PALPITATIONS. a.fib ) COPD: No DVT: No Dementia: No Diabetes: Yes (NIDDM) Dialysis: No (kidney disease,) GI Disorders: Yes (diverticulitis) Disorders: Yes (Fibrillary Glomerulonephritis) HTN: Yes Other medical history: gout, reflexs sympathy dystrophy syndrome, restless leg syndrome, - Surgical History Abdominal Surgery: Yes (UMBILICAL HERNIA) Appendectomy: Yes Cardiac Surgery: Yes (X1,CARDIAC CATH, ppm,TERESA, Ablation) Orthopedic Surgery: Yes (TKR RIGHT) - Suicide/Smoking/Psychosocial Hx Smoking Status: No Smoking History: Never smoked Have you smoked in the past 12 months: No Number of Cigarettes Smoked Daily: 0 Information on smoking cessation initiated: No Hx Alcohol Use: No Drug/Substance Use Hx: No Substance Use Type: None Hx Substance Use Treatment: No <Chapis Spain - Last Filed: 07/09/18 00:55> - Past Medical History Allergies/Adverse Reactions: Allergies Allergy/AdvReac Type Severity Reaction Status Date / Time nifedipine [From Procardia] Allergy "breathing Verified 03/28/18 16:49 problems" nitroglycerin AdvReac "severe Verified 03/28/18 16:49 [From Nitroglyn] headache" Home Medications: Ambulatory Orders Allopurinol [Zyloprim -] 300 mg PO DAILY 11/07/16 Doxazosin Mesylate [Cardura -] 2 mg PO DAILY 11/07/16 Iron 1 tab PO DAILY 11/07/16 Bumetanide [Bumex -] 1 tab PO DAILY PRN 09/13/17 Cholecalciferol (Vitamin D3) [Vitamin D3] 1 cap PO DAILY 09/13/17 Amiodarone HCl [Cordarone -] 200 mg PO BID #60 tablet 03/31/18 Losartan Potassium 100 mg PO DAILY #30 tablet 03/31/18 Pramipexole Dihydrochloride [Mirapex -] 0.25 mg PO HS tablet 03/31/18 Spironolactone [Aldactone -] 25 mg PO Q48H #0 tab 03/31/18 Warfarin Na [Coumadin -] 5 mg PO SuMoThFrSa@1800 tablet 03/31/18 Warfarin Na [Coumadin -] 10 mg PO TuWe@1800 tablet 03/31/18 levoFLOXacin [Levaquin -] 250 mg PO Q48H #5 tablet 07/09/18 Review of Systems - Review of Systems Able to Perform ROS?: Yes Comments:: 07/09/18 00:42 GENERAL/CONSTITUTIONAL: (+)fever, weakness. No chills.. HEAD, EYES, EARS, NOSE AND THROAT: No change in vision. No ear pain or discharge. No sore throat. CARDIOVASCULAR: (+)shortness of breath. No chest pain. RESPIRATORY: (+)cough. No wheezing, or hemoptysis. GASTROINTESTINAL: (+)diarrhea nausea. No vomiting, or constipation. GENITOURINARY: No dysuria, frequency, or change in urination. MUSCULOSKELETAL: No joint or muscle swelling or pain. No neck or back pain. SKIN: No rash NEUROLOGIC: No headache, vertigo, loss of consciousness, or change in strength/ sensation. ENDOCRINE: No increased thirst. No abnormal weight change. HEMATOLOGIC/LYMPHATIC: No anemia, easy bleeding, or history of blood clots. ALLERGIC/IMMUNOLOGIC: No hives or skin allergy. <Henry Sarah - Last Filed: 07/09/18 00:42> *Physical Exam - Vital Signs Last Vital Signs Temp Pulse Resp BP Pulse Ox 100.5 F H 69 20 124/64 99 07/08/18 22:47 07/08/18 21:29 07/08/18 21:29 07/08/18 21:29 07/08/18 21:29 <Henry Sarah - Last Filed: 07/09/18 00:42> - Vital Signs Last Vital Signs Temp Pulse Resp BP Pulse Ox 100.5 F H 69 20 124/64 99 07/08/18 22:47 07/08/18 21:29 07/08/18 21:29 07/08/18 21:29 07/08/18 21:29 <Chapis Spain - Last Filed: 07/09/18 00:55> ED Treatment Course - LABORATORY CBC & Chemistry Diagram: 07/08/18 21:45 07/08/18 21:45 - ADDITIONAL ORDERS Additional order review: Laboratory Results 07/08/18 07/08/18 07/08/18 23:56 22:18 22:18 PT with INR 38.40 H INR 3.40 H* Sodium Potassium Chloride Carbon Dioxide Anion Gap BUN Creatinine Creat Clearance w eGFR Random Glucose Lactic Acid Calcium Total Bilirubin AST ALT Alkaline Phosphatase Total Protein Albumin Urine Color Yellow Urine Appearance Cloudy Urine pH 5.0 Ur Specific [place] 1.017 Urine Protein 3+ H Urine Glucose (UA) Negative Urine Ketones Negative Urine Blood 2+ H Urine Nitrite Negative Urine Bilirubin Negative Urine Urobilinogen Negative Ur Leukocyte Esterase 3+ H Urine WBC (Auto) 261 Urine RBC (Auto) 43 Ur Epithelial Cells Few Urine Bacteria Many Urine Mucus Rare Blood Type B POSITIVE Antibody Screen Negative 07/08/18 07/08/18 22:17 21:45 PT with INR INR Sodium 140 Potassium 5.2 H Chloride 108 H Carbon Dioxide 24 Anion Gap 8 BUN 36 H Creatinine 2.9 H Creat Clearance w eGFR 16.00 Random Glucose 91 Lactic Acid 0.8 Calcium 8.2 L Total Bilirubin 0.3 AST 21 ALT 22 Alkaline Phosphatase 67 Total Protein 6.3 L Albumin 2.7 L Urine Color Urine Appearance Urine pH Ur Specific [place] Urine Protein Urine Glucose (UA) Urine Ketones Urine Blood Urine Nitrite Urine Bilirubin Urine Urobilinogen Ur Leukocyte Esterase Urine WBC (Auto) Urine RBC (Auto) Ur Epithelial Cells Urine Bacteria Urine Mucus Blood Type Antibody Screen 07/08/18 21:45 RBC 3.41 L MCV 84.9 MCHC 32.5 RDW 15.4 MPV 11.5 H Neutrophils % 77.6 Lymphocytes % 8.2 D Monocytes % 10.0 Eosinophils % 3.1 Basophils % 1.1 <Henry Sarah - Last Filed: 07/09/18 00:42> - LABORATORY CBC & Chemistry Diagram: 07/08/18 21:45 07/08/18 21:45 - ADDITIONAL ORDERS Additional order review: Laboratory Results 07/08/18 07/08/18 07/08/18 23:56 22:18 22:18 PT with INR 38.40 H INR 3.40 H* Sodium Potassium Chloride Carbon Dioxide Anion Gap BUN Creatinine Creat Clearance w eGFR Random Glucose Lactic Acid Calcium Total Bilirubin AST ALT Alkaline Phosphatase Total Protein Albumin Urine Color Yellow Urine Appearance Cloudy Urine pH 5.0 Ur Specific [place] 1.017 Urine Protein 3+ H Urine Glucose (UA) Negative Urine Ketones Negative Urine Blood 2+ H Urine Nitrite Negative Urine Bilirubin Negative Urine Urobilinogen Negative Ur Leukocyte Esterase 3+ H Urine WBC (Auto) 261 Urine RBC (Auto) 43 Ur Epithelial Cells Few Urine Bacteria Many Urine Mucus Rare Blood Type B POSITIVE Antibody Screen Negative 07/08/18 07/08/18 22:17 21:45 PT with INR INR Sodium 140 Potassium 5.2 H Chloride 108 H Carbon Dioxide 24 Anion Gap 8 BUN 36 H Creatinine 2.9 H Creat Clearance w eGFR 16.00 Random Glucose 91 Lactic Acid 0.8 Calcium 8.2 L Total Bilirubin 0.3 AST 21 ALT 22 Alkaline Phosphatase 67 Total Protein 6.3 L Albumin 2.7 L Urine Color Urine Appearance Urine pH Ur Specific [place] Urine Protein Urine Glucose (UA) Urine Ketones Urine Blood Urine Nitrite Urine Bilirubin Urine Urobilinogen Ur Leukocyte Esterase Urine WBC (Auto) Urine RBC (Auto) Ur Epithelial Cells Urine Bacteria Urine Mucus Blood Type Antibody Screen 07/08/18 21:45 RBC 3.41 L MCV 84.9 MCHC 32.5 RDW 15.4 MPV 11.5 H Neutrophils % 77.6 Lymphocytes % 8.2 D Monocytes % 10.0 Eosinophils % 3.1 Basophils % 1.1 <Chapis Spain - Last Filed: 07/09/18 00:55> *DC/Admit/Observation/Transfer - Attestations Scribe Attestion: 07/09/18 00:42 Documentation prepared by Henry Sarah, acting as medical office receptionist assistant for Chapis Spain MD. <Henry Sarah - Last Filed: 07/09/18 00:42> - Discharge Dispostion Decision to Admit order: No <Chapis Spain - Last Filed: 07/09/18 00:55> Diagnosis at time of Disposition: Urinary tract infection - Discharge Dispostion Disposition: HOME Condition at time of disposition: Stable - Prescriptions Prescriptions: levoFLOXacin [Levaquin -] 250 mg PO Q48H #5 tablet - Referrals Referrals: Brodie Wright MD [Primary Care Provider] - - Patient Instructions Printed Discharge Instructions: DI for Urinary Tract Infection (UTI), Creatinine Clearance - Post Discharge Activity
[2018-07-09] MEDS ORDERED: levoFLOXacin 750 MG TABLET PO ONE (00:54)
== END 2018-07-09 01:09 | disposition home or self-care (01) ==
LOC: JER 20:54
PROC: 3E0337Z Introduction of Electrolytic and Water Balance Substance into Peripheral Vein, Percutaneous Approach (ICD-10-PCS; principal; 2018-07-08)
DX: N39.0 Urinary tract infection, site not specified (principal); E11.9 Type 2 diabetes mellitus without complications; J45.909 Unspecified asthma, uncomplicated; I48.0 Paroxysmal atrial fibrillation; Z79.01 Long term (current) use of anticoagulants; I10 Essential (primary) hypertension; I34.1 Nonrheumatic mitral (valve) prolapse
CPT/HCPCS: 36415; 71046-TC-FY; 80053; 81003; 81015; 83605; 85025; 85610; 86850; 86900; 86901; 87040; 87086; 99282-25; J7030

== ENCOUNTER 2018-09-10 11:41 | Emergency (ER) | payer OTHER, MEDICARE ==
[2018-09-10 12:08] VITALS: TEMP 98.3; BMI 37.5
--- NOTE | 2018-09-10 12:10 | PDOC ---
History of Present Illness - General Chief Complaint: Blood Pressure Problem Stated Complaint: HIGH BLOOD PRESSURE Time Seen by Provider: 09/10/18 12:09 History Source: Patient - History of Present Illness Initial Comments: 09/10/18 12:45 The patient is a 73 year old female with a PMH of NIDDM, Glomerulonephritis, HTN , Gout, MVP, AFib (s/p ablation) and restless leg syndrome presents with c/o elevated blood pressures. Patient reports that she measures her BP daily and for the last 1 week her BP have been high 170's-200's/90's-100's. C/o associated headache and some pressure behind her eyes. Both symptoms were associated with previous episodes of HTN. Patient reports adherence to her medication regimen including Losartan-HCTZ 100/25 mg, Hydralazine (50 mg QD), Spironolactone (25 mg), Bumetanide (1 mg). Allergy: Nifedipine, Nitroglycerin Surgical: Atrial ablation Social: denies toxic habits PMD: Dr. Kyle M.D. [employer] Operator: Dr. Porter Electrical Linesworker: Dr. Liang Past History - Past Medical History Allergies/Adverse Reactions: Allergies Allergy/AdvReac Type Severity Reaction Status Date / Time nifedipine [From Procardia] Allergy "breathing Verified 09/10/18 11:59 problems" nitroglycerin AdvReac "severe Verified 09/10/18 11:59 [From Nitroglyn] headache" Home Medications: Ambulatory Orders Allopurinol [Zyloprim -] 300 mg PO DAILY 11/07/16 Doxazosin Mesylate [Cardura -] 2 mg PO DAILY 11/07/16 Iron 1 tab PO DAILY 11/07/16 Bumetanide [Bumex -] 1 tab PO DAILY PRN 09/13/17 Cholecalciferol (Vitamin D3) [Vitamin D3] 1 cap PO DAILY 09/13/17 Amiodarone HCl [Cordarone -] 200 mg PO BID #60 tablet 03/31/18 Losartan Potassium 100 mg PO DAILY #30 tablet 03/31/18 Pramipexole Dihydrochloride [Mirapex -] 0.25 mg PO HS tablet 03/31/18 Spironolactone [Aldactone -] 25 mg PO Q48H #0 tab 03/31/18 Warfarin Na [Coumadin -] 5 mg PO SuMoThFrSa@1800 tablet 03/31/18 Warfarin Na [Coumadin -] 10 mg PO TuWe@1800 tablet 03/31/18 levoFLOXacin [Levaquin -] 250 mg PO Q48H #5 tablet 07/09/18 Anemia: Yes (LOW COUNT) Asthma: Yes Cancer: No Cardiac Disorders: Yes (MITRAL VALVE prolapse, SVT'S CAUSING PALPITATIONS. a.fib ) COPD: No DVT: No Dementia: No Diabetes: Yes (NIDDM) Dialysis: No (kidney disease,) GI Disorders: Yes (diverticulitis) Disorders: Yes (Fibrillary Glomerulonephritis) HTN: Yes Other medical history: gout, reflex sympathy dystrophy syndrome, restless leg syndrome - Surgical History Abdominal Surgery: Yes (UMBILICAL HERNIA) Appendectomy: Yes Cardiac Surgery: Yes (X1,CARDIAC CATH, ppm,TERESA, Ablation) Orthopedic Surgery: Yes (TKR RIGHT) - Suicide/Smoking/Psychosocial Hx Smoking Status: No Smoking History: Never smoked Have you smoked in the past 12 months: No Number of Cigarettes Smoked Daily: 0 Information on smoking cessation initiated: No Hx Alcohol Use: No Drug/Substance Use Hx: No Substance Use Type: None Hx Substance Use Treatment: No Review of Systems - Review of Systems Constitutional: No: Chills, Fever HEENTM: Yes: Other (pressure behind eyes). No: Eye Pain, Blurred Vision, Double Vision Respiratory: No: Cough, Shortness of Breath Cardiac (ROS): No: Chest Pain, Lightheadedness, Palpitations, Syncope ABD/GI: No: Constipated, Diarrhea, Nausea, Vomiting *Physical Exam - Vital Signs Last Vital Signs Temp Pulse Resp BP Pulse Ox 98.3 F 72 18 179/80 H 100 09/10/18 12:01 09/10/18 12:01 09/10/18 12:01 09/10/18 12:01 09/10/18 12:01 - Physical Exam General Appearance: Yes: Nourished, Appropriately Dressed HEENT: positive: Normal Voice, Hearing Grossly Normal Neck: positive: Trachea midline, Supple Respiratory/Chest: positive: Lungs Clear, Normal Breath Sounds. negative: Labored Respiration, Rapid RR, Rales, Wheezing Cardiovascular: positive: S1, S2 Gastrointestinal/Abdominal: positive: Normal Bowel Sounds, Soft Extremity: positive: Normal Capillary Refill, Normal Inspection Integumentary: positive: Normal Color, Dry, Warm Neurologic: positive: Fully Oriented, Alert Heart Score/ECG Review - History History: Slightly suspicious - Age Age: >/= 65 - Risk Factors Risk Factors Heart Score: Yes Hx Hypercholesterolemia, Yes Hx Hypertension, Yes Hx Diabetes Based on the list above the patient has:: >/=3 risk factors or Hx atherosclerotic disease - ECG Intrepretation Rhythm: Regular Rhythm - [place]: Normal - ECG Impressions Comment:: 09/10/18 19:39 HR 74, Atrial paced rhythm w/prolonged AV conduction, flattened T waves in Leads II, III c/w prior ECG dated February, ED Treatment Course - LABORATORY CBC & Chemistry Diagram: 09/10/18 13:20 09/10/18 14:30 Medical Decision Making - Medical Decision Making 09/10/18 12:58 73 year old female w/glomerulonephritis presents with 1 week h/o elevated BP w/ headache, no visual changes. BP 179/80 @ triage. Will obtain Cr, urine Cr, Troponin to check for end organ damage. Will monitor BP, if improves will discharge home. ECG shows HR 74, Atrial paced rhythm with prolonged AV conduction as documented in ECG section of this EMR. 09/10/18 15:02 Repeat BP 137/92 09/10/18 15:30 CBC wnL Awaiting CMP to check Cr 09/10/18 15:40 Cr 2.6 (stable from 07/2018 admission) [facility] M[facility] 09/10/18 16:07 Case d/w patient's criminal analyst, Dr. Mata States patient should adhere to current medication regimen and in light of patient's improved BP can be discharged home. Notes patient has a h/o 3 gram protein in urine 09/10/18 16:13 Troponin 0.17 (previous Troponin 0.07) -- possibly 2/2 to endocardial ischemia or poor renal clearance or ACS. ACS less likely given patient has no active complaints of chest, no ECG changes. 09/10/18 17:30 UA shows 3+ protein c/w previous UA Repeat Troponin pending 09/10/18 17:43 Case d/w Dr. Porter (cardiology) states repeat Troponin not neccesary; patient can call his cell phone should pressures remain elevated. States patient can be discharged without repeat Troponin. Patient and patient's daughter @ bedside. Comfortable with discharge home and close PMD, nephrology and cardiology follow-up. Will discharge home with return precautions. I discussed the physical exam findings, ancillary test results and final diagnoses with the patient. I answered all of the patient's questions. The patient was satisfied with the care received and felt comfortable with the discharge plan and treatment plan. The patient will return to the Emergency Department with any new, persistent or worsening symptoms. *DC/Admit/Observation/Transfer Diagnosis at time of Disposition: High blood pressure - Discharge Dispostion Disposition: HOME Condition at time of disposition: Good Decision to Admit order: No - Referrals Referrals: Brodie Wright MD [Primary Care Provider] - Jake Porter MD [Staff Physician] - Buddy Liang MD [Staff Physician] - - Patient Instructions Printed Discharge Instructions: DI for High Blood Pressure Additional Instructions: Please follow-up with your humanities teacher, criminal analyst and primary care doctor in the next 1 week. Please continue to take all of your medications as directed. Return to the Emergency Department for any new/worsening/concerning symptoms. - Post Discharge Activity
--- NOTE | 2018-09-10 12:58 | PDOC ---
Attending Attestation - Resident Resident Name: Amanda Toro - ED Attending Attestation I have performed the following: I have examined & evaluated the patient, The case was reviewed & discussed with the resident, I agree w/resident's findings & plan, Exceptions are as noted - HPI HPI: 09/10/18 12:56 73-year-old female with past medical history of asthma, diabetes, diverticulosis , fibrillary glomerunephritis, gout, hypertension, mitral valve prolapse, atrial fibrillation, reflex sympathy dystrophy syndrome, restless leg syndrome presents with elevated blood pressure. Patient reports that her systolic blood pressures typically in the 140s systolic. Noted today that her blood pressures were being elevated up to 200 systolic and over 100s diastolic. She reports a mild tension-like headache but not worst headache of life. She reports that when her blood pressure is elevated that her headache occurs. Denies chest pain or shortness of breath. Denies lightheadedness. Patient takes losartan hydrochlorothiazide 100/25, hydralazine 50 mg, spironolactone 25 mg, bumetanide 1 mg tablet Wednesday, Wednesday, Fridays. She reports adherence to medications. She states that she did eat some chicken and heavy foods last night. Came to the ER for further rash. - Physicial Exam PE: 09/10/18 12:57 GENERAL: Awake, alert, and fully oriented, in no acute distress HEAD: No signs of trauma EYES: EOMI, sclera anicteric, conjunctiva clear ENT: Auricles normal inspection, hearing grossly normal, nares patent, Moist mucosa NECK: Normal ROM, supple, LUNGS: Breath sounds equal, clear to auscultation bilaterally. No wheezes, and no crackles HEART: Regular rate and rhythm, normal S1 and S2, no murmurs, rubs or gallops ABDOMEN: Soft, nontender, No guarding, no rebound. No masses EXTREMITIES: Normal range of motion, no edema. No clubbing or cyanosis. No cords, erythema, or tenderness NEUROLOGICAL: Cranial nerves II through XII grossly intact. Normal speech SKIN: Warm, Dry, normal turgor, no rashes or lesions noted. - Medical Decision Making 09/10/18 12:57 Vital Signs Temp Pulse Resp BP Pulse Ox 98.3 F 72 18 179/80 H 100 09/10/18 12:01 09/10/18 12:01 09/10/18 12:01 09/10/18 12:01 09/10/18 12:01 Patient's blood pressures elevated. At home above 200 systolic, currently here 179/80. Could this be secondary to her food? Could this be related to her chronic kidney disease? We'll observe her blood pressure without intervention at the moment. Obtain labs to check creatinine and troponin. If the workup is negative and the blood pressure remains improved, the patient can follow-up as an outpatient. 09/10/18 16:10 CBC, BMP 09/10/18 13:20 09/10/18 14:30 CMP Sodium 141 mmol/L (136-145) 09/10/18 14:30 Potassium 4.8 mmol/L (3.5-5.1) 09/10/18 14:30 Chloride 108 mmol/L (98-107) H 09/10/18 14:30 Carbon Dioxide 26 mmol/L (21-32) 09/10/18 14:30 Anion Gap 7 MMOL/L (8-16) L 09/10/18 14:30 BUN 37 mg/dL (7-18) H 09/10/18 14:30 Creatinine 2.6 mg/dL (0.55-1.3) H 09/10/18 14:30 Creat Clearance w eGFR 18.15 (>60) 09/10/18 14:30 Random Glucose 119 mg/dL (74-106) H 09/10/18 14:30 Calcium 8.1 mg/dL (8.5-10.1) L 09/10/18 14:30 Magnesium 2.3 mg/dL (1.8-2.4) 09/10/18 14:30 Total Bilirubin 0.2 mg/dL (0.2-1) 09/10/18 14:30 AST 16 U/L (15-37) 09/10/18 14:30 ALT 14 U/L (13-61) 09/10/18 14:30 Alkaline Phosphatase 72 U/L (45-117) 09/10/18 14:30 Creatine Kinase 65 IU/L (26-192) 09/10/18 14:30 Troponin I 0.17 ng/ml (0.00-0.05) H 09/10/18 14:30 Total Protein 6.3 g/dl (6.4-8.2) L 09/10/18 14:30 Albumin 2.9 g/dl (3.4-5.0) L 09/10/18 14:30 09/10/18 16:12 Troponin is slightly elevated. 0.17. However, pt has had slightly elevated troponin. Never had chest pain or SOB. Pt has no complaints. BP has improved to 140s systolics. I have very low suspicion for ACS at this moment. However, will repeat troponin. If trop is stable or decreases, I feel that patient can go home. Will however confirm with pt's athletic trainer Dr. Porter. If Dr. Porter agrees with plan, will follow with this plan. Heart Score/ECG Review #1 ECG reviewed & interpreted by me at: 13:00 09/10/18 13:45 atrial paced 74 with prolonged AV conduction, nonspecific T wave abnormality, QTC 446 msec, no no jose f/std
[2018-09-10 13:33] LABS: BASO % 1.6 % (0-2.0); HEMATOCRIT 30.1 % (32.4-45.2); HEMOGLOBIN 9.5 GM/dL (10.7-15.3); LYMPH % 19.4 % (8-40); MCH 26.8 pg (25.7-33.7); MCHC 31.6 g/dl (32.0-36.0); MEAN CELL VOLUME 84.9 fl (80-96); MEAN PLT VOLUME 11.8 fl (7.5-11.1); PLATELET COUNT 190 K/MM3 (134-434); RBC 3.55 M/mm3 (3.60-5.2); WHITE BLOOD COUNT 7.7 K/mm3 (4.0-10.0)
[2018-09-10 15:29] LABS: ALBUMIN 2.9 g/dl (3.4-5.0); ALK PHOS 72 U/L (45-117); ANION GAP 7 MMOL/L (8-16); BILIRUBIN,TOTAL 0.2 mg/dL (0.2-1); BLOOD UREA NITROGEN 37 mg/dL (7-18); CALCIUM 8.1 mg/dL (8.5-10.1); CHLORIDE 108 mmol/L (98-107); CO2 26 mmol/L (21-32); CREATININE 2.6 mg/dL (0.55-1.3); GLUCOSE,RANDOM 119 mg/dL (74-106); MAGNESIUM 2.3 mg/dL (1.8-2.4); POTASSIUM 4.8 mmol/L (3.5-5.1); SGOT/AST 16 U/L (15-37); SGPT/ALT 14 U/L (13-61); SODIUM 141 mmol/L (136-145); TOT PROT 6.3 g/dl (6.4-8.2)
[2018-09-10 16:23] LABS: URINE APPEARANCE CLEAR; URINE BILIRUBIN NEGATIVE (<2.0 mg/dL); URINE COLOR LTYELLOW; URINE GLUCOSE (UA) NEGATIVE (NEGATIVE); URINE KETONE NEGATIVE (NEGATIVE); URINE LEUK ESTERASE NEGATIVE (NEGATIVE); URINE NITRITE NEGATIVE (NEGATIVE); URINE PROTEIN 3+ (NEGATIVE); URINE UROBILINOGEN NEGATIVE mg/dL (0.2-1.0)
[2018-09-10 16:29] LABS: EPI CELLS RARE /HPF (FEW); GRANULAR CASTS 3 /lpf; URINE BACTERIA RARE /hpf (NONE SEEN); URINE MUCUS RARE
[2018-09-10 18:34] VITALS: BP 147/73; PULSE 67
--- NOTE | 2018-09-11 10:53 | EKG ---
Test Reason : Blood Pressure : / mmHG Vent. Rate : 074 BPM Atrial Rate : 075 BPM P-R Int : 000 ms QRS Dur : 074 ms QT Int : 402 ms P-R-T Axes : 000 027 067 degrees QTc Int : 446 ms Atrial-paced rhythm with prolonged AV conduction NONSPECIFIC T WAVE ABNORMALITY ABNORMAL ECG WHEN COMPARED WITH ECG OF 28-MAR-2018 13:42, T WAVE INVERSION NO LONGER EVIDENT IN INFERIOR LEADS T WAVE INVERSION NO LONGER EVIDENT IN LATERAL LEADS Confirmed by JIM WHELAN MD ([id number]) on 09/11/2018 10:52:47 AM Referred By: Confirmed By:JIM WHELAN MD
== END 2018-09-10 18:41 | disposition home or self-care (01) ==
LOC: JER 11:41
DX: I10 Essential (primary) hypertension (principal); Z79.84 Long term (current) use of oral hypoglycemic drugs; I48.91 Unspecified atrial fibrillation; Z79.01 Long term (current) use of anticoagulants; E11.21 Type 2 diabetes mellitus with diabetic nephropathy; M10.9 Gout, unspecified; G90.50 Complex regional pain syndrome I, unspecified; G25.81 Restless legs syndrome; Z87.19 Personal history of other diseases of the digestive system; D64.9 Anemia, unspecified; J45.909 Unspecified asthma, uncomplicated
CPT/HCPCS: 36415; 80053; 81003; 81015; 82550; 83735; 84484; 85025; 93005; 93010; 99283-25

== ENCOUNTER 2019-06-28 12:57 | Emergency (ER) | payer OTHER, MEDICARE ==
[2019-06-28 13:07] VITALS: TEMP 98; BMI 36.4
--- NOTE | 2019-06-28 13:50 | PDOC ---
History of Present Illness - General Chief Complaint: Revisit, Lab Variance Stated Complaint: SENT BY PCP / POTASSIUM PROBLEM History Source: Patient Exam Limitations: No Limitations - History of Present Illness Initial Comments: 06/28/19 13:52 74 yo F with a hx of atrial fibrillation, asthma, DM, diverticulitis, HTN, MV prolapse, reflex sympathy dystrophy syndrome, and CKD presents to the emergency department upon referral by her warehouse man for hyperkalemia. Admits to eating high potassium containing foods such as watermelon and canteloupe over the course of 3 days. Per the patient, she feels asymptomatic at the moment and denies the following: fever, chills, nausea, vomiting, chest pain, SOB, abdominal pain, dysuria, hematuria, diarrhea, hematochezia, melena, and FND. Denies confusion and daughter in room denies her having memory or personality changes. Denies palpitations. Allergies: nifedipine, nitroglycerin Shx: c section, hernia repair, pacemaker, tonsilectomy, total knee replacement right side Meds: hydralazine 50, HCTZ/Losartan 100/25, allpurinol, doxazosin, warfarin, carzia 120 mg XT. Pmhx: Refer to above Social: Denies tobacco, alcohol, substance abuse. 06/28/19 14:08 Past History - Past Medical History Allergies/Adverse Reactions: Allergies Allergy/AdvReac Type Severity Reaction Status Date / Time nifedipine [From Procardia] Allergy "breathing Verified 06/28/19 13:07 problems" nitroglycerin AdvReac "severe Verified 06/28/19 13:07 [From Nitroglyn] headache" Home Medications: Ambulatory Orders Allopurinol [Zyloprim -] 300 mg PO DAILY 11/07/16 Doxazosin Mesylate [Cardura -] 2 mg PO DAILY 11/07/16 Iron 1 tab PO DAILY 11/07/16 Bumetanide [Bumex -] 1 tab PO MOWEFR PRN 09/13/17 Cholecalciferol (Vitamin D3) [Vitamin D3] 1 cap PO DAILY 09/13/17 Spironolactone [Aldactone -] 25 mg PO Q48H #0 tab 03/31/18 Warfarin Na [Coumadin -] 5 mg PO SuMoThFrSa@1800 tablet 03/31/18 Warfarin Na [Coumadin -] 10 mg PO TuWe@1800 tablet 03/31/18 Diltiazem HCl [Cartia Xt] 120 mg PO BID 06/28/19 Hydralazine HCl 50 mg PO TID 06/28/19 Losartan/Hydrochlorothiazide [Losartan-Hctz 100-25 mg Tab] 1 tab PO DAILY Anemia: Yes (LOW COUNT) Asthma: Yes Cancer: No Cardiac Disorders: Yes (MITRAL VALVE prolapse, SVT'S CAUSING PALPITATIONS. a.fib ) COPD: No DVT: No Dementia: No Diabetes: Yes Dialysis: No (kidney disease,) GI Disorders: Yes (diverticulitis) Disorders: Yes (Fibrillary Glomerulonephritis) HTN: Yes Hypercholesterolemia: Yes - Surgical History Abdominal Surgery: Yes (UMBILICAL HERNIA) Appendectomy: Yes Cardiac Surgery: Yes (X1,CARDIAC CATH, ppm,TERESA, Ablation) Orthopedic Surgery: Yes (TKR RIGHT) - Suicide/Smoking/Psychosocial Hx Smoking Status: No Smoking History: Unknown if ever smoked Have you smoked in the past 12 months: No Number of Cigarettes Smoked Daily: 0 Information on smoking cessation initiated: No Hx Alcohol Use: No Drug/Substance Use Hx: No Substance Use Type: None Hx Substance Use Treatment: No Review of Systems - Review of Systems Able to Perform ROS?: Yes Is the patient limited Singaporean proficient: No Constitutional: No: Chills, Diaphoresis, Fever, Night Sweats, Weakness HEENTM: No: Blurred Vision, Double Vision, Ear Pain, Nose Pain, Throat Pain, Mouth Pain Respiratory: No: Cough, Shortness of Breath, Hemoptysis Cardiac (ROS): No: Chest Pain, Lightheadedness, Palpitations, Syncope, Chest Tightness ABD/GI: No: Constipated, Diarrhea, Nausea, Rectal Bleeding, Vomiting, Tarry Stools : No: Burning, Dysuria, Hematuria, Incontinence Musculoskeletal: No: Back Pain, Joint Pain, Neck Pain Integumentary: No: Bruising, Erythema, Rash Neurological: No: Headache, Numbness, Tingling, Tremors Psychiatric: No: Change in Appetite Endocrine: No: Unexplained Weight Gain Hematologic/Lymphatic: No: Anemia *Physical Exam - Vital Signs Last Vital Signs Temp Pulse Resp BP Pulse Ox 98.0 F 70 16 138/72 100 06/28/19 13:04 06/28/19 13:04 06/28/19 13:04 06/28/19 13:04 06/28/19 13:04 - Physical Exam General Appearance: Yes: Nourished, Appropriately Dressed. No: Apparent Distress, Intoxicated HEENT: positive: EOMI, ROSALINDA, Normal Voice, Symmetrical, Pharynx Normal, Hearing Grossly Normal. negative: Pale Conjunctivae, Scleral Icterus (R), Scleral Icterus (L), Muffled/Hoarse voice, Pharyngeal Erythema, Tonsillar Exudate, Tonsillar Erythema, Nasal Congestion, Rhinorrhea, Sinus Tenderness, Excessive drooling Neck: positive: Trachea midline, Supple. negative: Tender, Lymphadenopathy (R) , Lymphadenopathy (L), Tender lateral, Tender midline Respiratory/Chest: positive: Lungs Clear, Normal Breath Sounds. negative: Chest Tender, Respiratory Distress, Accessory Muscle Use, Crackles, Rales, Rhonchi, Stridor, Wheezing Cardiovascular: positive: Regular Rhythm, Regular Rate, S1, S2. negative: Systolic Murmur Gastrointestinal/Abdominal: positive: Normal Bowel Sounds, Flat, Soft. negative : Tender Lymphatic: negative: Adenopathy Musculoskeletal: positive: Normal Inspection. negative: CVA Tenderness, Vertebral Tenderness Extremity: positive: Normal Capillary Refill, Normal Inspection, Normal Range of Motion. negative: Tender Integumentary: positive: Normal Color, Dry, Warm. 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 patient endorses eating potassium rich food over the course of 4 days prior to presentation. will provide insulin, d50, and lokalema. Will assess CBC and CMP after using the treatments to monitor response. Laboratory Tests 06/28/19 06/28/19 06/28/19 15:08 16:45 16:45 WBC 9.0 RBC 3.31 L Hgb 9.2 L Hct 29.4 L MCV 88.7 MCH 27.9 MCHC 31.4 L RDW 16.1 H Plt Count 183 MPV 11.2 H Absolute Neuts (auto) 5.6 Neutrophils % 62.2 Lymphocytes % 23.6 D Monocytes % 10.5 H Eosinophils % 2.9 Basophils % 0.8 Nucleated RBC % 0 Sodium 139 Potassium 5.2 H Chloride 111 H Carbon Dioxide 23 Anion Gap 6 L BUN 54.3 H Creatinine 2.7 H Est GFR (CKD-EPI)AfAm 19.62 Est GFR (CKD-EPI)NonAf 16.92 POC Glucometer 80 Random Glucose 73 L Calcium 8.4 L Total Bilirubin 0.2 AST 14 L ALT 15 Alkaline Phosphatase 81 Total Protein 6.5 Albumin 3.2 L 06/28/19 06/28/19 18:12 18:57 WBC RBC Hgb Hct MCV MCH MCHC RDW Plt Count MPV Absolute Neuts (auto) Neutrophils % Lymphocytes % Monocytes % Eosinophils % Basophils % Nucleated RBC % Sodium Potassium Chloride Carbon Dioxide Anion Gap BUN Creatinine Est GFR (CKD-EPI)AfAm Est GFR (CKD-EPI)NonAf POC Glucometer 69 140 Random Glucose Calcium Total Bilirubin AST ALT Alkaline Phosphatase Total Protein Albumin Patient had low BG; provided her with food. repeat BG was adequate. Spoke to Dr. Ramirez who will follow up with the patient once the potassium is less than 5.5. No EKG changes were found consistent with hyperkalemia. Dispo: Discharge *DC/Admit/Observation/Transfer Diagnosis at time of Disposition: Hyperkalemia - Discharge Dispostion Disposition: HOME Decision to Admit order: No - Referrals Referrals: Brodie Wright MD [Primary Care Provider] - Buddy Ramirez MD [Staff Physician] - - Patient Instructions Printed Discharge Instructions: DI for Hyperkalemia Additional Instructions: Please avoid potassium high containing foods such as watermelon, banana, and kiwis. Please follow up with your warehouse man within 72 hours after discharge for follow up care and management. Please STOP your spironolactone per at the request of your warehouse man. Thank you. - Post Discharge Activity
[2019-06-28] MEDS ORDERED: DEXTROSE 50%-WATER - 25 GM/50 ML VIAL IVPUSH ONE (14:16)
[2019-06-28] MEDS ORDERED: INSULIN REGULAR HUMAN 100 UNITS/ML *VIAL IVPUSH ONE (14:16)
[2019-06-28] MEDS ORDERED: SODIUM ZIRCONIUM CYCLOSILICATE (LOKELMA) 5 GM PACKET PO ONE (14:21)
[2019-06-28] MEDS ORDERED: SODIUM CHLORIDE 500 ML IV STA (14:22)
--- NOTE | 2019-06-28 14:25 | EKG ---
Test Reason : Blood Pressure : / mmHG Vent. Rate : 074 BPM Atrial Rate : 077 BPM P-R Int : 000 ms QRS Dur : 072 ms QT Int : 360 ms P-R-T Axes : 000 029 068 degrees QTc Int : 399 ms Atrial-paced rhythm WITH OCCASIONAL supraventricular complexes NONSPECIFIC T WAVE ABNORMALITY ABNORMAL ECG WHEN COMPARED WITH ECG OF 10-SEP-2018 13:00, NO SIGNIFICANT CHANGE WAS FOUND Confirmed by TIKI SOFIA, NILAY ([id number]) on 06/28/2019 2:24:27 PM Referred By: Confirmed By:NILAY FAIRBANKS MD
[2019-06-28] MEDS ORDERED: DEXTROSE 50%-WATER 25 GM/50 ML DISP.SYRIN ONE (14:45)
[2019-06-28] MEDS ORDERED: INSULIN REGULAR HUMAN 100 UNITS/ML *VIAL ONE (14:47)
--- NOTE | 2019-06-28 15:26 | PDOC ---
Documentation entered by Akhil Cisse SCRIBE, acting as scribe for Jan Khan MD. Jan Khan MD: This documentation has been prepared by the Tanna stark Elijah, SCRIBE, under my direction and personally reviewed by me in its entirety. I confirm that the documentation accurately reflects all work, treatment, procedures, and medical decision making performed by me. Attending Attestation - Resident Resident Name: Alex Simon - ED Attending Attestation I have performed the following: I have examined & evaluated the patient, The case was reviewed & discussed with the resident, I agree w/resident's findings & plan - HPI HPI: 06/28/19 14:09 Patient is a 74 year old female with a significant past medical history of atrial fibrillation, asthma, DM, diverticulitis, HTN, MV prolapse, reflex sympathy dystrophy syndrome, and CKD who presents to the ED from her [employer] with an elevated potassium level. At this time the patient reports feeling asymptomatic. Allergies: Nifedipine and Nitroglycerin PCP: Dr. Wright - Physicial Exam PE: 06/28/19 15:24 Patient is awake and alert, well-nourished, in no distress Normocephalic and atraumatic PERRLA, EOMI CTA RRR No lower extremity edema - Medical Decision Making 06/28/19 15:25 Patient is a 74-year-old female with history of COPD (stage IV) who presents with asymptomatic hypokalemia 6.5. EKG shows no evidence of acute electrolyte abnormalities. Patient does not appear to be in fluid overload. We'll judiciously hydrate, we'll administer potassium binding resin, we'll administer and significantly glucose. Will reassess. If potassium is noted to be less than 5.5 and repeat CMP, will discharge with instructions to stop Aldactone.
[2019-06-28 17:12] LABS: BASO % 0.8 % (0-2.0); EOS % 2.9 % (0-4.5); HEMATOCRIT 29.4 % (32.4-45.2); HEMOGLOBIN 9.2 GM/dL (10.7-15.3); LYMPH % 23.6 % (8-40); MCH 27.9 pg (25.7-33.7); MCHC 31.4 g/dl (32.0-36.0); MEAN CELL VOLUME 88.7 fl (80-96); MEAN PLT VOLUME 11.2 fl (7.5-11.1); MONO % 10.5 % (3.8-10.2); NEUT % 62.2 % (42.8-82.8); PLATELET COUNT 183 K/MM3 (134-434); RBC 3.31 M/mm3 (3.60-5.2); RDW 16.1 % (11.6-15.6)
[2019-06-28 17:44] LABS: ALBUMIN 3.2 g/dl (3.4-5.0); BILIRUBIN,TOTAL 0.2 mg/dL (0.2-1); BLOOD UREA NITROGEN 54.3 mg/dL (7-18); CALCIUM 8.4 mg/dL (8.5-10.1); CREATININE 2.7 mg/dL (0.55-1.3); POTASSIUM 5.2 mmol/L (3.5-5.1); TOT PROT 6.5 g/dl (6.4-8.2)
[2019-06-28 19:05] VITALS: BP 141/69; PULSE 72
== END 2019-06-28 19:06 | disposition home or self-care (01) ==
LOC: JER 12:57
PROC: 3E033GC Introduction of Other Therapeutic Substance into Peripheral Vein, Percutaneous Approach (ICD-10-PCS; principal; 2019-06-28)
PROC: 3E013VG Introduction of Insulin into Subcutaneous Tissue, Percutaneous Approach (ICD-10-PCS; 2019-06-28)
PROC: 3E0337Z Introduction of Electrolytic and Water Balance Substance into Peripheral Vein, Percutaneous Approach (ICD-10-PCS; 2019-06-28)
DX: E87.5 Hyperkalemia (principal); I10 Essential (primary) hypertension; E78.00 Pure hypercholesterolemia, unspecified; J45.909 Unspecified asthma, uncomplicated
CPT/HCPCS: 36415; 80053; 82962; 85025; 93005; 93010; 96361; 96374; 96375; 99283-25

== ENCOUNTER 2019-11-15 12:50 | Inpatient (IN) | payer OTHER, MEDICARE ==
--- NOTE | 2019-11-15 13:15 | PDOC ---
History of Present Illness - General Chief Complaint: Blood Pressure Problem Stated Complaint: SENT BY PCP Time Seen by Provider: 11/15/19 13:15 History Source: Patient - History of Present Illness Initial Comments: 11/15/19 14:01 Ms. Gray is a 74 y/o woman with hx Afib on coumadin, HTN, DM, asthma, CKD, fibrillary glomerulonephritis p/w two days of lightheadedness, nausea, shortness of breath. She presented to her turf grower (Dr. Porter) today for these symptoms, and was found to be hypertensive to the 200s/100s. She denies any chest pain at this time. She reports taking her regular BP medications today , as well as an additional hydralazine pill at Dr. Porter's office. She denies any changes in vision, weakness, headache at this time. She reports baseline mild LE edema and denies any changes or increased swelling in the last week. Past History - Past Medical History Allergies/Adverse Reactions: Allergies Allergy/AdvReac Type Severity Reaction Status Date / Time nifedipine [From Procardia] Allergy "breathing Verified 11/15/19 12:57 problems" nitroglycerin AdvReac "severe Verified 11/15/19 12:57 [From Nitroglyn] headache" Home Medications: Ambulatory Orders Allopurinol [Zyloprim -] 300 mg PO DAILY 11/07/16 Doxazosin Mesylate [Cardura -] 2 mg PO DAILY 11/07/16 Iron 1 tab PO DAILY 11/07/16 Bumetanide [Bumex -] 1 tab PO MOWEFR PRN 09/13/17 Cholecalciferol (Vitamin D3) [Vitamin D3] 1 cap PO DAILY 09/13/17 Spironolactone [Aldactone -] 25 mg PO Q48H #0 tab 03/31/18 Warfarin Na [Coumadin -] 5 mg PO SuMoThFrSa@1800 tablet 03/31/18 Warfarin Na [Coumadin -] 10 mg PO TuWe@1800 tablet 03/31/18 Diltiazem HCl [Cartia Xt] 120 mg PO BID 06/28/19 Hydralazine HCl 50 mg PO TID 06/28/19 Losartan/Hydrochlorothiazide [Losartan-Hctz 100-25 mg Tab] 1 tab PO DAILY Anemia: Yes (LOW COUNT) Asthma: Yes Cancer: No Cardiac Disorders: Yes (MITRAL VALVE prolapse, SVT'S CAUSING PALPITATIONS. a.fib ) COPD: No DVT: No Dementia: No Diabetes: Yes Dialysis: No (kidney disease,) GI Disorders: Yes (diverticulitis) Disorders: Yes (Fibrillary Glomerulonephritis) HTN: Yes Hypercholesterolemia: Yes - Surgical History Abdominal Surgery: Yes (UMBILICAL HERNIA) Appendectomy: Yes Cardiac Surgery: Yes (X1,CARDIAC CATH, ppm,TERESA, Ablation) Orthopedic Surgery: Yes (TKR RIGHT) - Psycho Social/Smoking Cessation Hx Smoking Status: No Smoking History: Never smoked Have you smoked in the past 12 months: No Number of Cigarettes Smoked Daily: 0 Information on smoking cessation initiated: No Hx Alcohol Use: No Drug/Substance Use Hx: No Substance Use Type: None Hx Substance Use Treatment: No Review of Systems - Review of Systems Able to Perform ROS?: Yes Comments:: 11/15/19 14:19 ROS: GENERAL/CONSTITUTIONAL: Weakness. No fever or chills. HEAD, EYES, EARS, NOSE AND THROAT: No change in vision. No ear pain or discharge. No sore throat. CARDIOVASCULAR: Shortness of breath. No chest pain RESPIRATORY: No cough, wheezing, or hemoptysis. GASTROINTESTINAL: Nausea. No vomiting, diarrhea or constipation. GENITOURINARY: No dysuria, frequency, or change in urination. MUSCULOSKELETAL: No joint or muscle swelling or pain. No neck or back pain. SKIN: No rash NEUROLOGIC: No headache, vertigo, loss of consciousness, or change in strength/ sensation. ENDOCRINE: No increased thirst. No abnormal weight change HEMATOLOGIC/LYMPHATIC: No anemia, easy bleeding, or history of blood clots. ALLERGIC/IMMUNOLOGIC: No hives or skin allergy. *Physical Exam - Vital Signs Last Vital Signs Temp Pulse Resp BP Pulse Ox 98.2 F 72 16 210/95 H 99 11/15/19 12:57 11/15/19 12:57 11/15/19 12:57 11/15/19 12:57 11/15/19 12:57 - Physical Exam 11/15/19 14:21 PE: GENERAL: Awake, alert, and fully oriented, in no acute distress HEAD: No signs of trauma, normocephalic, atraumatic EYES: PERRLA, EOMI, sclera anicteric, conjunctiva clear ENT: Auricles normal inspection, hearing grossly normal, nares patent, oropharynx clear without exudates. Moist mucosa NECK: Normal ROM, supple, no lymphadenopathy, JVD, or masses LUNGS: No distress, speaks full sentences, clear to auscultation bilaterally HEART: Regular rate and rhythm, normal S1 and S2, no murmurs, rubs or gallops, peripheral pulses normal and equal bilaterally. ABDOMEN: Soft, nontender, normoactive bowel sounds. No guarding, no rebound. No masses EXTREMITIES : 1+ bilateral LE edema. Otherwise Normal inspection, Normal range of motion, no edema. No clubbing or cyanosis NEUROLOGICAL: Cranial nerves II through XII grossly intact. Normal speech, normal gait, no focal sensorimotor deficits SKIN: Warm, Dry, normal turgor, no rashes or lesions noted ED Treatment Course - LABORATORY CBC & Chemistry Diagram: 11/15/19 13:50 11/15/19 13:50 Medical Decision Making - Medical Decision Making 11/15/19 13:37 Repeat BP: 165/93 11/15/19 14:22 74F w/hx afib on coumadin, HTN, CKD, DM, mitral prolapse p/w two days of weakness, mild shortness of breath, found to be hypertensive at cardiology visit. Differential includes ACS, hypertensive urgency. HTN improved on repeat without intervention. Plan: CBC CMP Cardiac profile EKG CXR PT/INR PTT UA Urine culture Dispo: Pending labs, reassessment 11/15/19 15:46 Trop - 0.14 Cr - Baseline, CKD (2.6) BUN - [address] Porter (cardiology), plan for admission Discharge - Discharge Information Problems reviewed: Yes Clinical Impression/Diagnosis: Troponin level elevated Chronic renal disease Qualifiers: Chronic kidney disease stage: unspecified stage Qualified Code(s): N18.9 - Chronic kidney disease, unspecified Hypertension Qualifiers: Hypertension type: unspecified Qualified Code(s): I10 - Essential (primary) hypertension Condition: Stable - Admission Yes - Follow up/Referral - Patient Discharge Instructions - Post Discharge Activity
--- NOTE | 2019-11-15 13:55 | PDOC ---
Documentation entered by Kay Jackson SCRIBE, acting as scribe for Vladimir Thomas MD. Vladimir Thomas MD: This documentation has been prepared by the Manuel stark Brenda, SCRIBE, under my direction and personally reviewed by me in its entirety. I confirm that the documentation accurately reflects all work, treatment, procedures, and medical decision making performed by me. Attending Attestation - Resident Resident Name: Thaddeus Murphy - ED Attending Attestation I have performed the following: I have examined & evaluated the patient, The case was reviewed & discussed with the resident, I agree w/resident's findings & plan, Exceptions are as noted - HPI HPI: 11/15/19 13:52 The patient is a 74 year old female, with a significant PMH of HTN, DM, Fibrillary Glomerulonephritis, afib, mitral valve prolapse, diverticulitis and SVT who presents to the emergency department with weakness and nausea over 3 days. Patient reports going to Dr. Porter this morning and was found to have high BP. Pt was instructed to take an additional dose of her home hydralazine and come to the ED for further evaluation. The patient denies chest pain, shortness of breath, headache and dizziness. Denies fever, chills, nausea, vomiting, diarrhea and constipation. Denies dysuria, frequency, urgency and hematuria. Allergies: NKA Past surgical history:Appendectomy, umbilical hernia - Physicial Exam PE: 11/15/19 13:58 "GENERAL: Awake, alert, and fully oriented, in no acute distress. HEAD: No signs of trauma EYES: PERRLA, EOMI, sclera anicteric, conjunctiva clear ENT: Auricles normal inspection, hearing grossly normal, nares patent, oropharynx clear without exudates. Moist mucosa NECK: Nontender, no stepoffs, Normal ROM, supple, no lymphadenopathy, JVD, or masses LUNGS: Breath sounds equal, clear to auscultation bilaterally. No wheezes, and no crackles HEART: Regular rate and rhythm, normal S1 and S2, no murmurs, rubs or gallops ABDOMEN: Soft, nontender, normoactive bowel sounds. No guarding, no rebound. No masses EXTREMITIES: +2 PE BLE, Normal range of motion, no edema. No clubbing or cyanosis. No cords, erythema, or tenderness NEUROLOGICAL: Cranial nerves II through XII intact. 5/5 strength and sensation in all extremities, Normal speech, normal gait, normal cerebellar function SKIN: Warm, Dry, normal turgor, no rashes or lesions noted. - Medical Decision Making 11/15/19 13:58 74 F with elevated BP and nausea. In ED, pt's BP improved. Pt with no EKG changes to suggest ACS. Will check basic labs. - Labs, trop - Discuss with Dr. Porter
[2019-11-15 13:58] LABS: BASO % 1.1 % (0-2.0); HEMATOCRIT 28.8 % (32.4-45.2); HEMOGLOBIN 9.2 GM/dL (10.7-15.3); LYMPH % 20.2 % (8-40); MCH 27.8 pg (25.7-33.7); MCHC 32.1 g/dl (32.0-36.0); MEAN CELL VOLUME 86.5 fl (80-96); MONO % 9.1 % (3.8-10.2); NEUT % 67.6 % (42.8-82.8); PLATELET COUNT 180 K/MM3 (134-434); RBC 3.33 M/mm3 (3.60-5.2); RDW 15.4 % (11.6-15.6); WHITE BLOOD COUNT 8.1 K/mm3 (4.0-10.0)
[2019-11-15 14:22] LABS: INR 1.84 (0.83-1.09); PROTHROMBIN TIME (PATIENT) 21.8 SEC (9.7-13.0)
[2019-11-15 14:26] LABS: ALBUMIN 3.2 g/dl (3.4-5.0); BILIRUBIN,TOTAL 0.3 mg/dL (0.2-1); BLOOD UREA NITROGEN 40.2 mg/dL (7-18); CALCIUM 8.7 mg/dL (8.5-10.1); CREATININE 2.6 mg/dL (0.55-1.3); POTASSIUM 4.5 mmol/L (3.5-5.1); TOT PROT 6.5 g/dl (6.4-8.2)
--- NOTE | 2019-11-15 15:14 | EKG ---
Test Reason : Blood Pressure : / mmHG Vent. Rate : 081 BPM Atrial Rate : 075 BPM P-R Int : 000 ms QRS Dur : 078 ms QT Int : 388 ms P-R-T Axes : 000 035 063 degrees QTc Int : 450 ms Suspect unspecified pacemaker failure ATRIAL FIBRILLATION NONSPECIFIC T WAVE ABNORMALITY ABNORMAL ECG WHEN COMPARED WITH ECG OF 28-JUN-2019 13:06, ATRIAL FIBRILLATION HAS REPLACED ELECTRONIC ATRIAL PACEMAKER Confirmed by TIKI SOFIA, NILAY ([id number]) on 11/15/2019 3:14:14 PM Referred By: Confirmed By:NILAY FAIRBANKS MD
[2019-11-15 15:31] LABS: EPI CELLS 2.3 /HPF (0-5/HPF); HYALINE CASTS 3 /lpf (0-8); PH,URINE 5.5 (5.0-8.0); URINE APPEARANCE CLEAR; URINE BACTERIA 27.3 /hpf (NEGATIVE); URINE BILIRUBIN NEGATIVE (NEGATIVE); URINE COLOR YELLOW; URINE GLUCOSE (UA) NEGATIVE (NEGATIVE); URINE KETONE NEGATIVE (NEGATIVE); URINE LEUK ESTERASE NEGATIVE (NEGATIVE); URINE NITRITE NEGATIVE (NEGATIVE); URINE PROTEIN 3+ (NEGATIVE); URINE RBC 16 /hpf (0-4); URINE UROBILINOGEN 0.2 mg/dL (0.2-1.0); URINE WBC 5 /hpf (0-5)
--- NOTE | 2019-11-15 16:29 | HP ---
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 Porter's office for evaluation of BP today. Per pt, she initially was feeling dizzy and lightheaded today, thus she went to follow with her cardio, Dr. Porter. While there, was found to have BP of 190/90. Had taken her AM hydralazine 50mg x1. Was told by her cardio to take another dose of hydralazine, however her BP increased to 200/ 100 and she was told to come to the ED for further evaluation. In the ED, without intervention, her BP improved from 200/110 to 160/93. Her EKG revealed controlled afib, with a rate of 81bpm. Similar to previous. She is compliant with her medications. Was found to have trop of 0.14, and was admitted for f/u. Otherwise, pt is asymptomatic, denies BARRERA, fever, chills, SOB, chest pain or pressure or changes in urinary or bowel function. Pt lives with her daughter in [place]. She ambulates independently at baseline. Follows with Dr. 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 Porter. Had a stress test and ECHO done "many yrs ago" per pt. 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 denies cigarette, alcohol or drug use Allergies nifedipine [From Procardia] Allergy (Verified 11/15/19 12:57) "breathing problems" nitroglycerin [From Nitroglyn] Adverse Reaction (Verified 11/15/19 12:57) "severe headache" headaches, arrythmias HOME MEDICATIONS: Home Medications Medication Instructions Recorded Allopurinol [Zyloprim -] 300 mg PO DAILY 11/07/16 Doxazosin Mesylate [Cardura -] 2 mg PO DAILY 11/07/16 Iron 1 tab PO DAILY 11/07/16 Bumetanide [Bumex -] 1 tab PO MOWEFR PRN 09/13/17 Cholecalciferol (Vitamin D3) 1 cap PO DAILY 09/13/17 [Vitamin D3] Spironolactone [Aldactone -] 25 mg PO Q48H #0 tab 03/31/18 Warfarin Na [Coumadin -] 5 mg PO SuMoThFrSa@1800 tablet 03/31/18 Warfarin Na [Coumadin -] 10 mg PO TuWe@1800 tablet 03/31/18 Diltiazem HCl [Cartia Xt] 120 mg PO BID 06/28/19 Hydralazine HCl 50 mg PO TID 06/28/19 Losartan/Hydrochlorothiazide 1 tab PO DAILY 06/28/19 [Losartan-Hctz 100-25 mg Tab] PHYSICAL EXAMINATION Vital Signs - 24 hr 11/15/19 11/15/19 11/15/19 12:57 13:39 15:01 Temperature 98.2 F Pulse Rate 72 Pulse Rate [ 69 Left Brachial] Respiratory 16 17 Rate Blood Pressure 210/95 H Blood Pressure 163/95 157/80 [Left Arm] O2 Sat by Pulse 99 99 Oximetry (%) General: resting comfortably, sitting up HEENT: NCAT, PERRLA neck: no JVD, supple cardio: S1, S2 RRR. no r/m/g pulm: CTA b/l. no accessory m usage abdomen: obese, nontender, nondistended LE: 2+ pulses, 1+ edema (2/2 renal dz,chronic per pt) neuro: rolled gold plater 2-12 grossly intact Laboratory Tests 11/15/19 11/15/19 11/15/19 13:50 13:50 13:50 WBC 8.1 Hgb 9.2 L Hct 28.8 L Plt Count 180 PT with INR INR PTT (Actin FS) 45.5 H Sodium Potassium Chloride Carbon Dioxide BUN Creatinine Random Glucose Troponin I 0.14 H B-Natriuretic Peptide 11/15/19 11/15/19 13:50 13:50 WBC Hgb Hct Plt Count PT with INR 21.80 H INR 1.84 H PTT (Actin FS) Sodium 144 Potassium 4.5 Chloride 114 H Carbon Dioxide 23 BUN 40.2 H Creatinine 2.6 H Random Glucose 92 Troponin I B-Natriuretic Peptide 1237.0 H EKG: +afib, rate controlled 81bpm, qtc 450ms, similar to previous CXR: no significant change from previous, double lead PPM, no sign of infiltrate or failure. 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 Porter's office for evaluation of BP today. #HTN emergency (w/tropinemia) -pt has been compliant, unclear etiology -no recent illnesses per pt, no signs of infection. UA (-), no sx -may need change in medication dosing if persists -c/w home meds: hydralazine, aldactone, doxazosin, losartan -f/u ECHO -trops: 0.14, trend next. likely 2/2 CKD, demand -f/u a1c, TSH, lipid panel -serial EKGs -Cardio consult: Dr. Porter, follows pt as outpatient #afib -c/w current coumadin regimen -goal INR 2-3; currently subtherapeutic. follow tomorrow #asthma -not in exacerbation -while in hospital, nebs PRN, duonebs RQID #hx CKD, fibrillary GN -has contributed to pt's LE edema -c/w bumetanide PRN -renal consult: Dr. Mattson #hx DM2 -f/u a1c -bgm, iss achs #gout -c/w allopurinol #F/E/N no IVF at this time continue to follow lytes na controlled/diabetic diet #PPX DVT: coumadin #Dispo admit to tele Visit type - Emergency Visit Emergency Visit: Yes ED Registration Date: 11/15/19 Care time: The patient presented to the Emergency Department on the above date and was hospitalized for further evaluation of their emergent condition. - New Patient This patient is new to me today: Yes Date on this admission: 11/15/19 - Critical Care Critical Care patient: No
[2019-11-15] MEDS ORDERED: BUMETANIDE 1 MG TABLET PO PRN (16:38)
[2019-11-15] MEDS ORDERED: ALBUTEROL SO4 0.083% IH SOL 2.5 MG/3 ML VIAL.NEB. NEB PRN (16:51)
[2019-11-15] MEDS: INSULIN SLIDING SCALE (NOVOLOG) 1 VIAL SQ SCH ×2 (17:05→21:32)
--- NOTE | 2019-11-15 17:33 | PN ---
Teaching Attending Note Name of Resident: Brandy Sanchez ATTENDING PHYSICIAN STATEMENT I saw and evaluated the patient. I reviewed the resident's note and discussed the case with the resident. I agree with the resident's findings and plan as documented. SUBJECTIVE: This is a 74 year old woman with a history of HTN, atrial fib, stage 4 CKD, fibrillary glomerulonephritis, asthma who comes to the ED at the advice of Dr. Porter because of persistently elevated BP with dizziness. She says her BP has been high for several days. This morning, her BP was 190/20 and she was advised by Dr. Porter to take and additional half of a hydralazine. After an hour, BP was 200/100 and so he advised her to go to the ED. On arrival , BP was 210/95 and improved to 163/95 without intervention. Currently she has no complaints. OBJECTIVE: Vital Signs Period Temp Pulse Resp BP Sys/Montalvo Pulse Ox Last 24 Hr 98.2 F 69-78 16-17 157-210/80-95 98-99 HEART: Irregularly irregular LUNGS: Clear ABDOMEN: Obese, soft, non-tender, non-distended, normal BS EXTREMITIES: 1+ edema Laboratory Tests 11/15/19 11/15/19 11/15/19 13:50 13:50 13:50 WBC 8.1 RBC 3.33 L Hgb 9.2 L Hct 28.8 L MCV 86.5 MCH 27.8 MCHC 32.1 RDW 15.4 Plt Count 180 MPV 12.0 H Absolute Neuts (auto) 5.5 Neutrophils % 67.6 Lymphocytes % 20.2 Monocytes % 9.1 Eosinophils % 2.0 Basophils % 1.1 Nucleated RBC % 0 PT with INR INR PTT (Actin FS) 45.5 H Sodium Potassium Chloride Carbon Dioxide Anion Gap BUN Creatinine Est GFR (CKD-EPI)AfAm Est GFR (CKD-EPI)NonAf POC Glucometer Random Glucose Hemoglobin A1c % Calcium Total Bilirubin AST ALT Alkaline Phosphatase Creatine Kinase 130 Troponin I 0.14 H B-Natriuretic Peptide Total Protein Albumin Triglycerides Cholesterol Total LDL Cholesterol HDL Cholesterol TSH Urine Color Urine Appearance Urine pH Ur Specific [place] Urine Protein Urine Glucose (UA) Urine Ketones Urine Blood Urine Nitrite Urine Bilirubin Urine Urobilinogen Ur Leukocyte Esterase Urine WBC (Auto) Urine RBC (Auto) Urine Casts (Auto) U Epithel Cells (Auto) Urine Bacteria (Auto) 11/15/19 11/15/19 11/15/19 13:50 13:50 15:05 WBC RBC Hgb Hct MCV MCH MCHC RDW Plt Count MPV Absolute Neuts (auto) Neutrophils % Lymphocytes % Monocytes % Eosinophils % Basophils % Nucleated RBC % PT with INR 21.80 H INR 1.84 H PTT (Actin FS) Sodium 144 Potassium 4.5 Chloride 114 H Carbon Dioxide 23 Anion Gap 7 L BUN 40.2 H Creatinine 2.6 H Est GFR (CKD-EPI)AfAm 20.53 Est GFR (CKD-EPI)NonAf 17.71 POC Glucometer Random Glucose 92 Hemoglobin A1c % Calcium 8.7 Total Bilirubin 0.3 AST 14 L ALT 16 Alkaline Phosphatase 78 Creatine Kinase Troponin I B-Natriuretic Peptide 1237.0 H Total Protein 6.5 Albumin 3.2 L Triglycerides 116 Cholesterol 196 Total LDL Cholesterol 94 HDL Cholesterol 70 H TSH 1.98 Urine Color Yellow Urine Appearance Clear Urine pH 5.5 Ur Specific [place] 1.017 Urine Protein 3+ H Urine Glucose (UA) Negative Urine Ketones Negative Urine Blood Trace Urine Nitrite Negative Urine Bilirubin Negative Urine Urobilinogen 0.2 Ur Leukocyte Esterase Negative Urine WBC (Auto) 5 Urine RBC (Auto) 16 Urine Casts (Auto) 3 U Epithel Cells (Auto) 2.3 Urine Bacteria (Auto) 27.3 11/15/19 11/15/19 16:17 16:56 WBC RBC Hgb Hct MCV MCH MCHC RDW Plt Count MPV Absolute Neuts (auto) Neutrophils % Lymphocytes % Monocytes % Eosinophils % Basophils % Nucleated RBC % PT with INR INR PTT (Actin FS) Sodium Potassium Chloride Carbon Dioxide Anion Gap BUN Creatinine Est GFR (CKD-EPI)AfAm Est GFR (CKD-EPI)NonAf POC Glucometer 175 Random Glucose Hemoglobin A1c % 5.7 Calcium Total Bilirubin AST ALT Alkaline Phosphatase Creatine Kinase Troponin I B-Natriuretic Peptide Total Protein Albumin Triglycerides Cholesterol Total LDL Cholesterol HDL Cholesterol TSH Urine Color Urine Appearance Urine pH Ur Specific [place] Urine Protein Urine Glucose (UA) Urine Ketones Urine Blood Urine Nitrite Urine Bilirubin Urine Urobilinogen Ur Leukocyte Esterase Urine WBC (Auto) Urine RBC (Auto) Urine Casts (Auto) U Epithel Cells (Auto) Urine Bacteria (Auto) Home Medications Medication Instructions Recorded Allopurinol [Zyloprim -] 150 mg PO DAILY 11/07/16 Doxazosin Mesylate [Cardura -] 2 mg PO DAILY 11/07/16 Iron 1 tab PO DAILY 11/07/16 Bumetanide [Bumex -] 1 tab PO MOWEFR PRN 09/13/17 Cholecalciferol (Vitamin D3) 1 cap PO DAILY 09/13/17 [Vitamin D3] Warfarin Na [Coumadin -] 5 mg PO SuMoThFrSa@1800 tablet 03/31/18 Warfarin Na [Coumadin -] 10 mg PO TuWe@1800 tablet 03/31/18 Hydralazine HCl 50 mg PO BID 06/28/19 Albuterol Sulfate [Proair 1 puff IH Q4H 11/15/19 Digihaler] Losartan Potassium 25 mg PO DAILY 11/15/19 Nortriptyline HCl [Pamelor -] 10 mg PO DAILY 11/15/19 Pramipexole Di-HCl [Pramipexole 0.25 mg PO HS 11/15/19 Dihydrochloride] Salmeterol/Fluticasone [Advair 1 puff IH BID PRN 11/15/19 100Mcg/50Mcg -] Spironolactone [Aldactone -] 25 mg PO DAILY 11/15/19 ASSESSMENT AND PLAN: This is a 74 year old woman with a history of HTN, atrial fib, stage 4 CKD, fibrillary glomerulonephritis, asthma who presented to the ED with elevated BP associated with dizziness. 1. Hypertensive emergency - Monitor on telemetry - Serial troponins - Resume Hydralazine, Cozaar, Aldactone, Cardura, Bumex and monitor BP - Echocardiogram 2. Elevated troponin - Likely secondary to CKD, demand ischemia from hypertensive emergency 3. Atrial fibrillation, permanent - Rate controlled - Continue Coumadin and adjust according to INR 4. 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 Asthma - Stable - Continue Advair, albuterol
[2019-11-15] MEDS ORDERED: WARFARIN NA 10 MG TABLET (FP) PO SCH (18:00)
[2019-11-15] MEDS: ALBUTEROL SO4 2.5/IPRATROPIUM 0.5 INH SOL 3 ML VIAL.NEB. NEB SCH (20:43)
[2019-11-15] MEDS ORDERED: PT OWN MED DRAWER 7, Y5N ONE ×2 (20:46→21:58)
[2019-11-15] MEDS: PRAMIPEXOLE DIHYDROCHLORIDE 0.25 MG TABLET PO SCH ×3 (21:33→21:43)
[2019-11-15] MEDS ORDERED: hydrALAZINE HCL 50 MG TABLET (FP) PO SCH (22:00)
[2019-11-15] MEDS ORDERED: hydrALAZINE HCL 50 MG TABLET (FP) PO ONE (22:00)
[2019-11-16] MEDS: DOXAZOSIN MESYLATE 2 MG TABLET (FP) PO SCH ×2 (00:33→22:06)
--- NOTE | 2019-11-16 00:58 | CONSULT ---
Consultation: REQUESTING PROVIDER: Dr. Ramos CONSULT REQUEST: Hypertensive Emergency HISTORY OF PRESENT ILLNESS: 74 y/o F with PMH asthma, DM2, afib (on coumadin), HTN, CKD, who was sent from Dr. Ramos's office for evaluation of elevated BP. Patient states that her BP was been elevated for the past 4 days - she checks her pressure everyday and her systolics had been ranging from 160's-180's with diastolics in the 80's-90' s. she takes all of her BP meds regularly. she states that she had been feeling dizzy in addition to having some increased leg swelling the past few days and she went to Dr. Ramos's office today and her BP was high and she was sent to the ER and admitted to telemetry. Despite giving her regularly scheduled medications her BP was stilll elevated with systolics in the low 200's and diastolics in the low 100's; Dr. ramos was called and requested further ICU monitoring with labetolol drip to be started REVIEW OF SYSTEMS: CONSTITUTIONAL: Absent: fever, chills, diaphoresis, generalized weakness, malaise, loss of appetite, weight change HEENT: Absent: rhinorrhea, nasal congestion, throat pain, throat swelling, difficulty swallowing, mouth swelling, ear pain, eye pain, visual changes CARDIOVASCULAR: Present: lightheadedness, peripheral edema Absent: chest pain, syncope, palpitations, irregular heart rate, lightheadedness, RESPIRATORY: Absent: cough, shortness of breath, dyspnea with exertion, orthopnea, wheezing, stridor, hemoptysis GASTROINTESTINAL: Absent: abdominal pain, abdominal distension, nausea, vomiting, diarrhea, constipation, melena, hematochezia GENITOURINARY: Absent: dysuria, frequency, urgency, hesitancy, hematuria, flank pain, genital pain MUSCULOSKELETAL: Absent: myalgia, arthralgia, joint swelling, back pain, neck pain SKIN: Absent: rash, itching, pallor HEMATOLOGIC/IMMUNOLOGIC: Absent: easy bleeding, easy bruising, lymphadenopathy, frequent infections ENDOCRINE: Absent: unexplained weight gain, unexplained weight loss, heat intolerance, cold intolerance NEUROLOGIC: Absent: headache, focal weakness or paresthesias, dizziness, unsteady gait, seizure, mental status changes, bladder or bowel incontinence PSYCHIATRIC: Absent: anxiety, depression, suicidal or homicidal ideation, hallucinations. PHYSICAL EXAMINATION Vital Signs - 24 hr 11/15/19 11/15/19 11/15/19 12:57 13:39 15:01 Temperature 98.2 F Pulse Rate 72 Pulse Rate [ 69 Left Brachial] Respiratory 16 17 Rate Blood Pressure 210/95 H Blood Pressure 163/95 157/80 [Left Arm] O2 Sat by Pulse 99 99 Oximetry (%) 11/15/19 11/15/19 11/15/19 17:13 17:40 18:35 Temperature 97.8 F Pulse Rate 68 Pulse Rate [ 78 Left Brachial] Respiratory 17 18 Rate Blood Pressure 156/79 Blood Pressure 159/81 [Left Arm] O2 Sat by Pulse 98 96 Oximetry (%) 11/15/19 11/15/19 11/16/19 20:40 21:28 00:15 Temperature 98 F Pulse Rate 68 66 75 Pulse Rate [ Left Brachial] Respiratory 16 16 16 Rate Blood Pressure 185/96 H 208/98 H 200/104 H Blood Pressure [Left Arm] O2 Sat by Pulse Oximetry (%) GENERAL: Awake, alert, and fully oriented, in no acute distress. EYES: PEERLA; EOMI; no scleral icterus NECK: no JVD; no lymphadenopathy LUNGS: CTA B/L; no rales, rhonchi or wheezing HEART: Regular rate and rhythm, normal S1 and S2 without murmur, rub or gallop. ABDOMEN: Soft, NT/ND +BS in all 4 quadrants EXTREMITIES: warm; well-perfused 1-2+ pitting edema BL NEUROLOGICAL: Cranial nerves II-XII intact. Normal speech. Normal gait. PSYCHIATRIC: Cooperative. Good eye contact. Appropriate mood and affect. SKIN: Warm, dry, normal turgor, no rashes or lesions noted. Laboratory Results - last 24 hr 11/15/19 11/15/19 11/15/19 13:50 13:50 13:50 WBC 8.1 RBC 3.33 L Hgb 9.2 L Hct 28.8 L MCV 86.5 MCH 27.8 MCHC 32.1 RDW 15.4 Plt Count 180 MPV 12.0 H Absolute Neuts (auto) 5.5 Neutrophils % 67.6 Lymphocytes % 20.2 Monocytes % 9.1 Eosinophils % 2.0 Basophils % 1.1 Nucleated RBC % 0 PT with INR INR PTT (Actin FS) 45.5 H Sodium Potassium Chloride Carbon Dioxide Anion Gap BUN Creatinine Est GFR (CKD-EPI)AfAm Est GFR (CKD-EPI)NonAf POC Glucometer Random Glucose Hemoglobin A1c % Calcium Total Bilirubin AST ALT Alkaline Phosphatase Creatine Kinase 130 Troponin I 0.14 H B-Natriuretic Peptide Total Protein Albumin Triglycerides Cholesterol Total LDL Cholesterol HDL Cholesterol TSH Urine Color Urine Appearance Urine pH Ur Specific [place] Urine Protein Urine Glucose (UA) Urine Ketones Urine Blood Urine Nitrite Urine Bilirubin Urine Urobilinogen Ur Leukocyte Esterase Urine WBC (Auto) Urine RBC (Auto) Urine Casts (Auto) U Epithel Cells (Auto) Urine Bacteria (Auto) 11/15/19 11/15/19 11/15/19 13:50 13:50 15:05 WBC RBC Hgb Hct MCV MCH MCHC RDW Plt Count MPV Absolute Neuts (auto) Neutrophils % Lymphocytes % Monocytes % Eosinophils % Basophils % Nucleated RBC % PT with INR 21.80 H INR 1.84 H PTT (Actin FS) Sodium 144 Potassium 4.5 Chloride 114 H Carbon Dioxide 23 Anion Gap 7 L BUN 40.2 H Creatinine 2.6 H Est GFR (CKD-EPI)AfAm 20.53 Est GFR (CKD-EPI)NonAf 17.71 POC Glucometer Random Glucose 92 Hemoglobin A1c % Calcium 8.7 Total Bilirubin 0.3 AST 14 L ALT 16 Alkaline Phosphatase 78 Creatine Kinase Troponin I B-Natriuretic Peptide 1237.0 H Total Protein 6.5 Albumin 3.2 L Triglycerides 116 Cholesterol 196 Total LDL Cholesterol 94 HDL Cholesterol 70 H TSH 1.98 Urine Color Yellow Urine Appearance Clear Urine pH 5.5 Ur Specific [place] 1.017 Urine Protein 3+ H Urine Glucose (UA) Negative Urine Ketones Negative Urine Blood Trace Urine Nitrite Negative Urine Bilirubin Negative Urine Urobilinogen 0.2 Ur Leukocyte Esterase Negative Urine WBC (Auto) 5 Urine RBC (Auto) 16 Urine Casts (Auto) 3 U Epithel Cells (Auto) 2.3 Urine Bacteria (Auto) 27.3 11/15/19 11/15/19 11/15/19 16:17 16:56 20:55 WBC RBC Hgb Hct MCV MCH MCHC RDW Plt Count MPV Absolute Neuts (auto) Neutrophils % Lymphocytes % Monocytes % Eosinophils % Basophils % Nucleated RBC % PT with INR INR PTT (Actin FS) Sodium Potassium Chloride Carbon Dioxide Anion Gap BUN Creatinine Est GFR (CKD-EPI)AfAm Est GFR (CKD-EPI)NonAf POC Glucometer 175 84 Random Glucose Hemoglobin A1c % 5.7 Calcium Total Bilirubin AST ALT Alkaline Phosphatase Creatine Kinase Troponin I B-Natriuretic Peptide Total Protein Albumin Triglycerides Cholesterol Total LDL Cholesterol HDL Cholesterol TSH Urine Color Urine Appearance Urine pH Ur Specific [place] Urine Protein Urine Glucose (UA) Urine Ketones Urine Blood Urine Nitrite Urine Bilirubin Urine Urobilinogen Ur Leukocyte Esterase Urine WBC (Auto) Urine RBC (Auto) Urine Casts (Auto) U Epithel Cells (Auto) Urine Bacteria (Auto) Active Medications Generic Name Dose Route Start Last Admin Trade Name Freq PRN Reason Stop Dose Admin Albuterol Sulfate 1 amp 11/15/19 16:51 Ventolin 0.083% Nebulizer Soln - NEB Q4H PRN SHORT OF BREATH/WHEEZING Albuterol/Ipratropium 1 amp 11/15/19 20:00 11/15/19 20:43 Duoneb - NEB Not Given RQID [facility] Allopurinol 150 mg 11/16/19 10:00 Zyloprim - PO DAILY [facility] Bumetanide 1 mg 11/15/19 16:38 Bumex - PO MoWeFr@1000 PRN leg swelling Cholecalciferol 2,000 unit 11/16/19 10:00 Vitamin D3 - PO DAILY [facility] Doxazosin Mesylate 2 mg 11/16/19 00:30 11/16/19 00:33 Cardura - PO 2 mg HS [facility] Administration Ferrous Sulfate 325 mg 11/16/19 10:00 Feosol - PO DAILY [facility] Hydralazine HCl 100 mg 11/16/19 10:00 Apresoline - PO BID [facility] Insulin Aspart 1 vial 11/15/19 16:30 11/15/19 21:32 Novolog Vial Sliding Scale - SQ Not Given ACHS [facility] Protocol Losartan Potassium 25 mg 11/16/19 10:00 Cozaar - PO DAILY [facility] Nortriptyline HCl 10 mg 11/16/19 10:00 Pamelor - PO DAILY [facility] Pramipexole Dihydrochloride 0.25 mg 11/15/19 22:00 11/15/19 21:43 Mirapex - PO Not Given HS [facility] Spironolactone 25 mg 11/16/19 10:00 Aldactone - PO DAILY [facility] Warfarin Sodium 5 mg 11/16/19 18:00 Coumadin - PO SuMoThFrSa@1800 [facility] Warfarin Sodium 10 mg 11/15/19 18:00 11/15/19 18:20 Coumadin - PO 10 mg TuWe@1800 [facility] Administration ASSESSMENT/PLAN 74 y/o F with PMH asthma, DM2, afib (on coumadin), HTN, CKD, who was sent from Dr. Ramos's office for evaluation of elevated BP: #Neuro AAOX3; stable no issues #Cardiovascular hypertensive emergency w/ tropinemia afib -will start patient on labetolol drip as per dr. ramos -goal BP: <180/<120 within the first hour; <160/<110 for the next 23 hours -c/w other home BP meds -coumadin for afib : will adjust according to INR -tropinemia likely 2/2 demand from hypertension v. CKD; will trend -echo ordered for AM -monitor hemodynamics #Endocrine diabetes -ISS ACHS -BGMS ACHS #GI stable; no issues sodium controlled diet #Pulmonary asthma ; not in acute exacerbation -c/w duonebs QID and albuterol PRN #Renal CKD history; Cr 2.7 on arrival (baseline 2.5-2.6) -c/w bumex for peripheral edema as 2/2 CKD F/E/N not on fluids monitor electrolytes sodium/diabetic diet dvt ppx: coumadin Dispo: We will continue to follow the patient. Thank you for this consultative opportunity. Problem List - Problems (1) Chronic renal disease Code(s): N18.9 - CHRONIC KIDNEY DISEASE, UNSPECIFIED Qualifiers: Chronic kidney disease stage: unspecified stage Qualified Code(s): N18.9 - Chronic kidney disease, unspecified (2) Hypertension Code(s): I10 - ESSENTIAL (PRIMARY) HYPERTENSION Qualifiers: Hypertension type: unspecified Qualified Code(s): I10 - Essential (primary ) hypertension (3) Troponin level elevated Code(s): R79.89 - OTHER SPECIFIED ABNORMAL FINDINGS OF BLOOD CHEMISTRY Visit type - Emergency Visit Emergency Visit: Yes ED Registration Date: 11/15/19 Care time: The patient presented to the Emergency Department on the above date and was hospitalized for further evaluation of their emergent condition. - New Patient This patient is new to me today: Yes Date on this admission: 11/16/19 - Critical Care Critical Care patient: Yes Total Critical Care Time (in minutes): 35 Critical Care Statement: The care of this patient involved high complexity decision making to prevent further life threatening deterioration of the patient 's condition and/or to evaluate & treat vital organ system(s) failure or risk of failure. ATTENDING PHYSICIAN STATEMENT I saw and evaluated the patient. I reviewed the resident's note and discussed the case with the resident. I agree with the resident's findings and plan as documented. SUBJECTIVE: OBJECTIVE: ASSESSMENT AND PLAN:
[2019-11-16] MEDS ORDERED: LABETALOL HCL 5 MG/1 ML (100MG/20 ML VIAL) IVPUSH ONE ×3 (00:59→06:05)
[2019-11-16] MEDS ORDERED: LABETALOL HCL INJECTION 1,000 MG in SODIUM CHLORIDE 800 ML IV SCH (01:30)
[2019-11-16] MEDS ORDERED: SODIUM CHLORIDE IV SCH (02:59)
[2019-11-16] MEDS ORDERED: LABETALOL HCL IV SCH (02:59)
[2019-11-16] MEDS: INSULIN SLIDING SCALE (NOVOLOG) 1 VIAL SQ SCH (06:23)
[2019-11-16 06:56] LABS: BASO % 0.6 % (0-2.0); EOS % 2.5 % (0-4.5); HEMATOCRIT 26.7 % (32.4-45.2); HEMOGLOBIN 8.7 GM/dL (10.7-15.3); LYMPH % 22.9 % (8-40); MCHC 32.6 g/dl (32.0-36.0); MEAN CELL VOLUME 85.8 fl (80-96); MEAN PLT VOLUME 12.3 fl (7.5-11.1); MONO % 10.1 % (3.8-10.2); NEUT % 63.9 % (42.8-82.8); PLATELET COUNT 154 K/MM3 (134-434); RBC 3.11 M/mm3 (3.60-5.2); RDW 15.4 % (11.6-15.6); WHITE BLOOD COUNT 7.2 K/mm3 (4.0-10.0)
[2019-11-16 07:13] LABS: BLOOD UREA NITROGEN 45.3 mg/dL (7-18); CALCIUM 7.9 mg/dL (8.5-10.1); CREATININE 2.5 mg/dL (0.55-1.3); MAGNESIUM 2.2 mg/dL (1.8-2.4); PHOSPHOROUS 4.2 mg/dL (2.5-4.9); POTASSIUM 4.6 mmol/L (3.5-5.1)
[2019-11-16] MEDS: ALBUTEROL SO4 2.5/IPRATROPIUM 0.5 INH SOL 3 ML VIAL.NEB. NEB SCH ×4 (08:24→20:15)
[2019-11-16 08:29] LABS: INR 2.05 (0.83-1.09); PROTHROMBIN TIME (PATIENT) 24.4 SEC (9.7-13.0)
[2019-11-16] MEDS ORDERED: BUMETANIDE 1 MG TABLET PO PRN (08:50)
[2019-11-16] MEDS: CHOLECALCIFEROL (VIT D3) 1,000 UNIT (25 MCG) TABLET PO SCH (09:09)
[2019-11-16] MEDS: SPIRONOLACTONE 25 MG TABLET (FP) PO SCH (09:10)
[2019-11-16] MEDS: hydrALAZINE HCL 50 MG TABLET (FP) PO SCH ×2 (09:10→22:05)
[2019-11-16] MEDS: FERROUS SO4 325 MG TABLET (FP) PO SCH (09:10)
[2019-11-16] MEDS ORDERED: DOXAZOSIN MESYLATE 2 MG TABLET (FP) PO SCH (10:00)
[2019-11-16] MEDS ORDERED: NORTRIPTYLINE HCL 10 MG CAPSULE PO SCH (10:00)
[2019-11-16] MEDS ORDERED: LOSARTAN POTASSIUM 25 MG TABLET PO SCH (10:00)
[2019-11-16] MEDS ORDERED: ALLOPURINOL 300 MG TABLET (FP) PO SCH ×2 (10:00→22:00)
--- NOTE | 2019-11-16 10:54 | PN ---
Teaching Attending Note Name of Resident: Lori Briceño ATTENDING PHYSICIAN STATEMENT I saw and evaluated the patient. I reviewed the resident's note and discussed the case with the resident. I agree with the resident's findings and plan as documented. SUBJECTIVE: Patient seen and examined in the ICU. Awake and alert. Denies CP or SOB. No BARRERA, BOV, dizziness. Intake & Output 11/13/19 11/14/19 11/15/19 11/16/19 23:59 23:59 23:59 23:59 Intake Total 740 Balance 740 Weight 226 lb 9.6 oz Last Vital Signs Temp Pulse Resp BP Pulse Ox 97.9 F 67 16 160/67 100 11/16/19 10:00 11/16/19 10:00 11/16/19 10:00 11/16/19 10:00 11/16/19 09:00 Active Medications Albuterol Sulfate (Ventolin 0.083% Nebulizer Soln -) 1 amp NEB Q4H PRN PRN Reason: SHORT OF BREATH/WHEEZING Albuterol/Ipratropium (Duoneb -) 1 amp NEB RQID COUNTS INCLUDE 234 BEDS AT THE [facility] Last Admin: 11/16/19 08:24 Dose: 1 amp Allopurinol (Zyloprim -) 150 mg PO DAILY ADA Bumetanide (Bumex -) 1 mg PO DAILY PRN PRN Reason: leg swelling Chlorhexidine Gluconate (Hibiclens For Decolonization -) 1 applic TP HS COUNTS INCLUDE 234 BEDS AT THE [facility] Cholecalciferol (Vitamin D3 -) 2,000 unit PO DAILY COUNTS INCLUDE 234 BEDS AT THE [facility] Last Admin: 11/16/19 09:09 Dose: 2,000 unit Doxazosin Mesylate (Cardura -) 2 mg PO HS COUNTS INCLUDE 234 BEDS AT THE [facility] Last Admin: 11/16/19 00:33 Dose: 2 mg Ferrous Sulfate (Feosol -) 325 mg PO DAILY COUNTS INCLUDE 234 BEDS AT THE [facility] Last Admin: 11/16/19 09:10 Dose: 325 mg Hydralazine HCl (Apresoline -) 100 mg PO BID COUNTS INCLUDE 234 BEDS AT THE [facility] Last Admin: 11/16/19 09:10 Dose: 100 mg Labetalol HCl 250 mg/ Sodium (Chloride) 250 mls @ 120 mls/hr IV TITR ADA Losartan Potassium (Cozaar -) 25 mg PO DAILY COUNTS INCLUDE 234 BEDS AT THE [facility] Last Admin: 11/16/19 09:10 Dose: 25 mg Mupirocin (Bactroban Ointment (For Decolonization) -) 1 applic NS BID COUNTS INCLUDE 234 BEDS AT THE [facility] Stop: 11/21/19 09:59 Nortriptyline HCl (Pamelor -) 10 mg PO DAILY COUNTS INCLUDE 234 BEDS AT THE [facility] Pramipexole Dihydrochloride (Mirapex -) 0.25 mg PO HS COUNTS INCLUDE 234 BEDS AT THE [facility] Last Admin: 11/15/19 21:43 Dose: Not Given Spironolactone (Aldactone -) 25 mg PO DAILY COUNTS INCLUDE 234 BEDS AT THE [facility] Last Admin: 11/16/19 09:10 Dose: 25 mg Warfarin Sodium (Coumadin -) 5 mg PO [id number]@1800 COUNTS INCLUDE 234 BEDS AT THE [facility] Warfarin Sodium (Coumadin -) 10 mg PO [id number]@1800 COUNTS INCLUDE 234 BEDS AT THE [facility] Last Admin: 11/15/19 18:20 Dose: 10 mg GENERAL: Awake, alert, and fully oriented, in no acute distress. EYES: PEERLA; EOMI; no scleral icterus NECK: no JVD; no lymphadenopathy LUNGS: CTA B/L; no rales, rhonchi or wheezing HEART: Regular rate and rhythm, normal S1 and S2 without murmur, rub or gallop. ABDOMEN: Soft, NT/ND +BS in all 4 quadrants EXTREMITIES: warm; well-perfused 1-2+ pitting edema BL NEUROLOGICAL: Non-focal PSYCHIATRIC: Cooperative. Good eye contact. Appropriate mood and affect. SKIN: Warm, dry, normal turgor, no rashes or lesions noted. Laboratory Results - last 24 hr 11/15/19 11/15/19 11/15/19 13:50 13:50 13:50 WBC 8.1 RBC 3.33 L Hgb 9.2 L Hct 28.8 L MCV 86.5 MCH 27.8 MCHC 32.1 RDW 15.4 Plt Count 180 MPV 12.0 H Absolute Neuts (auto) 5.5 Neutrophils % 67.6 Lymphocytes % 20.2 Monocytes % 9.1 Eosinophils % 2.0 Basophils % 1.1 Nucleated RBC % 0 PT with INR INR PTT (Actin FS) 45.5 H Sodium Potassium Chloride Carbon Dioxide Anion Gap BUN Creatinine Est GFR (CKD-EPI)AfAm Est GFR (CKD-EPI)NonAf POC Glucometer Random Glucose Hemoglobin A1c % Calcium Total Bilirubin AST ALT Alkaline Phosphatase Creatine Kinase 130 Troponin I 0.14 H B-Natriuretic Peptide Total Protein Albumin Triglycerides Cholesterol Total LDL Cholesterol HDL Cholesterol TSH Urine Color Urine Appearance Urine pH Ur Specific [place] Urine Protein Urine Glucose (UA) Urine Ketones Urine Blood Urine Nitrite Urine Bilirubin Urine Urobilinogen Ur Leukocyte Esterase Urine WBC (Auto) Urine RBC (Auto) Urine Casts (Auto) U Epithel Cells (Auto) Urine Bacteria (Auto) 11/15/19 11/15/19 11/15/19 13:50 13:50 15:05 WBC RBC Hgb Hct MCV MCH MCHC RDW Plt Count MPV Absolute Neuts (auto) Neutrophils % Lymphocytes % Monocytes % Eosinophils % Basophils % Nucleated RBC % PT with INR 21.80 H INR 1.84 H PTT (Actin FS) Sodium 144 Potassium 4.5 Chloride 114 H Carbon Dioxide 23 Anion Gap 7 L BUN 40.2 H Creatinine 2.6 H Est GFR (CKD-EPI)AfAm 20.53 Est GFR (CKD-EPI)NonAf 17.71 POC Glucometer Random Glucose 92 Hemoglobin A1c % Calcium 8.7 Total Bilirubin 0.3 AST 14 L ALT 16 Alkaline Phosphatase 78 Creatine Kinase Troponin I B-Natriuretic Peptide 1237.0 H Total Protein 6.5 Albumin 3.2 L Triglycerides 116 Cholesterol 196 Total LDL Cholesterol 94 HDL Cholesterol 70 H TSH 1.98 Urine Color Yellow Urine Appearance Clear Urine pH 5.5 Ur Specific [place] 1.017 Urine Protein 3+ H Urine Glucose (UA) Negative Urine Ketones Negative Urine Blood Trace Urine Nitrite Negative Urine Bilirubin Negative Urine Urobilinogen 0.2 Ur Leukocyte Esterase Negative Urine WBC (Auto) 5 Urine RBC (Auto) 16 Urine Casts (Auto) 3 U Epithel Cells (Auto) 2.3 Urine Bacteria (Auto) 27.3 11/15/19 11/15/19 11/15/19 16:17 16:56 20:55 WBC RBC Hgb Hct MCV MCH MCHC RDW Plt Count MPV Absolute Neuts (auto) Neutrophils % Lymphocytes % Monocytes % Eosinophils % Basophils % Nucleated RBC % PT with INR INR PTT (Actin FS) Sodium Potassium Chloride Carbon Dioxide Anion Gap BUN Creatinine Est GFR (CKD-EPI)AfAm Est GFR (CKD-EPI)NonAf POC Glucometer 175 84 Random Glucose Hemoglobin A1c % 5.7 Calcium Total Bilirubin AST ALT Alkaline Phosphatase Creatine Kinase Troponin I B-Natriuretic Peptide Total Protein Albumin Triglycerides Cholesterol Total LDL Cholesterol HDL Cholesterol TSH Urine Color Urine Appearance Urine pH Ur Specific [place] Urine Protein Urine Glucose (UA) Urine Ketones Urine Blood Urine Nitrite Urine Bilirubin Urine Urobilinogen Ur Leukocyte Esterase Urine WBC (Auto) Urine RBC (Auto) Urine Casts (Auto) U Epithel Cells (Auto) Urine Bacteria (Auto) Problem List - Problems (1) Chronic renal disease Code(s): N18.9 - CHRONIC KIDNEY DISEASE, UNSPECIFIED Qualifiers: Chronic kidney disease stage: unspecified stage Qualified Code(s): N18.9 - Chronic kidney disease, unspecified (2) Hypertension Code(s): I10 - ESSENTIAL (PRIMARY) HYPERTENSION Qualifiers: Hypertension type: unspecified Qualified Code(s): I10 - Essential (primary ) hypertension (3) Troponin level elevated Code(s): R79.89 - OTHER SPECIFIED ABNORMAL FINDINGS OF BLOOD CHEMISTRY ASSESSMENT/PLAN Accelerated Hypertension Mild Intermittent Asthma: stable DM AFib on Coumadin HTN CKD Anti-HTN titration per Cardiology O2 as needed PO as tolerated Coumadin with following of INR OOB to chair ECHO Glycemic control Cardiac Telemetry monitoring Dr Moss
--- NOTE | 2019-11-16 11:19 | CONS ---
DATE OF CONSULTATION: DATE OF DICTATION: 11/16/2019 CARDIOLOGY CONSULTATION REQUESTING PHYSICIAN: Jonathan Cespedes MD LOCATION: [facility]U. HISTORY OF PRESENT ILLNESS: Patient is a 74-year-old female retired [employer] employee with longstanding history of bronchial asthma, hypertension, hypertensive cardiovascular disease, chronic kidney disease (fibrillar glomerulonephritis), paroxysmal atrial fibrillation, status post radiofrequency ablation, sick sinus syndrome status post permanent pacemaker, noninsulin-dependent diabetes mellitus, history of mitral valve prolapse, restless leg syndrome and history of left ventricular diastolic dysfunction. Patient came to the office for an INR and mentioned that she was having lightheadedness and generalized mild headache. Was found to have accelerated hypertension and was sent to the emergency room. At the emergency room her systolic blood pressure was 200/110 mmHg. There is no history of chest pain or discomfort, no history of dyspnea either at rest or with exertion, no paroxysmal nocturnal dyspnea or orthopnea reported. Occasional palpitation described as skips. No history of sustained arrhythmias, history of chronic pedal edema partly related to proteinuria. PAST HISTORY: As mentioned in the history of present illness. SURGICAL HISTORY: 1. Status post tonsillectomy. 2. History of a cyst removal from one of her feet. 3. Status post hysterectomy. 4. Repair of an umbilical hernia. 5. Status post pacemaker insertion. 6. Status post radiofrequency ablation. 7. History of repair of fallopian tubes. 8. Status post total right knee replacement. SOCIAL HISTORY: Single, retired, 1 daughter. Has never smoked. Has not had a drink for many years. Used to have a drink on social occasion. One cup of tea. FAMILY HISTORY: Father at age 91 related to dementia. He also had coronary artery disease. Mother at age 75 due to complications of abdominal surgery. She has no siblings. ALLERGIES: PATIENT IS INTOLERANT TO NITROGLYCERIN AND PROCARDIA (CAUSES SEVERE HEADACHES). MEDICATIONS: Prior to admission were as follows: 1. Hydralazine 100 mg p.o. b.i.d. Had been on 100 mg t.i.d. but developed hypotension during the afternoons. 2. Losartan/hydrochlorothiazide 100/25 mg p.o. daily. 3. Spironolactone 25 mg p.o. daily. 4. Bumex 1 mg p.o. p.r.n. 5. Allopurinol 300 mg 1/2 tablet p.o. daily. 6. 2 mg p.o. daily at night. 7. Coumadin, dose is being adjusted according to INR. 8. Iron supplements 1 p.o. daily. 9. Vitamin D3, dose is uncertain 1 p.o. daily. 10. Oxycodone/acetaminophen 10/325 mg p.o. p.r.n. for pain. 11. ProAir 2 inhalations q.i.d. p.r.n. 12. Advair 1 inhalation p.r.n. daily. REVIEW OF SYSTEMS: Constitutional: No history of chills, fever or night sweats. No history of unintentional weight loss. HEENT: History of headaches, history of occasional blurring of vision especially with elevated blood pressure. No history of diplopia. No history of epistaxis. Respiratory: See history of present illness. History of nonproductive cough. No history of hemoptysis or tuberculosis. Gastrointestinal: No history of nausea, vomiting, melena or hematemesis. No history of abdominal pain or discomfort. No history of change in bowel habits. Genitourinary: See history of present illness. No history of dysuria, frequency or hematuria. Endocrine: See history of present illness. Neurological: History of reflex sympathetic dystrophic syndrome. History of restless leg syndrome. History of periodic limb movement disorder. PHYSICAL EXAMINATION: General: A 74-year-old female at the time of examination was in no acute distress, no pallor, cyanosis, clubbing or jaundice. Vital Signs: Blood pressure was 161/80 mmHg. Pulse 70 beats per minute and regular. Temperature and weight are not available. Neck: Supple, no jugular venous distention, carotids are 2+, upstrokes were normal, no bruits were heard and no thyromegaly was present. Heart: PMI was in the 5th intercostal space, no heaves or thrills, S1 and S2 were normal, known ejection systolic click was heard along the left sternal border and apex. Unable to appreciate a murmur or gallop. Lungs: Clear on auscultation. Chest: Normal AP diameter, expansion was symmetrical. Abdomen: Obese, soft and nontender. No hepatosplenomegaly or palpable masses were felt. Bowel sounds are present, no bruits were heard. Extremities: No calf tenderness, 1+ bilateral pretibial edema. Pulses were equal. LABORATORY DATA: ECG November 15, 2019: AV sequential pacemaker was sensing and pacing appropriately. Occasional supraventricular premature beats. Nonspecific ST and T-wave abnormalities. No previous ECG was available for comparison. CBC November 16, 2019: WBC 7200. Hemoglobin 8.7 g/dL. Hematocrit 26.7%. Platelet count 154,000. Electrolytes: Sodium 144, potassium 4.6, chloride 114, CO2 of 22 mMol/L. BUN 45.3. Creatinine 2.5 mg/dL. Calcium was 7.9 mg/dL. Hemoglobin A1c was 5.7%. Troponin was mildly elevated at 0.12. X-ray chest, November 15, 2019: A single view of the chest has been submitted. Since July 20, 2016, there is no significant change. Again noted is prominent mediastinum, double-lead pacemaker and no sign of infiltrate or failure. The angles are sharp. The bone and soft tissue are intact. IMPRESSION: 1. Accelerated hypertension, history of chronic hypertensive cardiovascular disease. 2. Paroxysmal atrial fibrillation, status post radiofrequency ablation. 3. History of bronchial asthma, currently in remission. 4. Palpitation related to supraventricular premature beats. 5. Noninsulin-dependent diabetes mellitus. 6. History of mitral valve disorder (mitral valve prolapse). 7. History of gout, currently in remission. 8. Bronchial asthma, currently in remission. 9. History of . 10. History of diverticulosis. RECOMMENDATIONS: 1. If blood pressure remains elevated the afternoon dose of hydralazine 100 mg could be reinstituted. 2. If necessary consider adding labetalol or metoprolol succinate to the regimen. 3. Strict dietary compliance including curtailing sodium intake. 4. Follow PCP. 5. Follow up troponin levels which may be elevated due to underlying atrial fibrillation. 6. Current medications were reviewed and patient will require appropriate adjustment of INR with Coumadin. PROGNOSIS: Guarded. Thank you for your referral. Yours sincerely, TIMBO MOREIRA M.D. DAMIAN/[id number]
[2019-11-16] MEDS ORDERED: PT OWN MED DRAWER 7, Y5N ONE ×3 (11:22→21:28)
[2019-11-16] MEDS: MUPIROCIN 2% TOPICAL OINTMENT FOR DECOLONIZATION NS SCH ×2 (12:15→22:06)
--- NOTE | 2019-11-16 12:49 | ECHO ---
Name: DILLON LUIS ALBERTO Exam:Adult Echocardiogram Study Date: 11/16/2019 10:17 AM Age: 74 yrs Height: 65 in Weight: 224 lb BSA: 2.1 m2 BP: 160/67 mmHg MMode/2D Measurements & Calculations IVSd: 1.1 cm Ao root diam: 4.0 cm LVIDd: 4.0 cm LA dimension: 3.3 cm LVIDs: 2.8 cm LVPWd: 1.1 cm LVPWs: 1.4 cm EDV(Teich): 71.2 ml ESV(Teich): 29.4 ml LVOT diam: 2.1 cm LAV (MOD-bp): 91.0 ml RV S Roberto: 13.3 cm/sec Doppler Measurements & Calculations MV E max roberto: 86.3 cm/sec Ao V2 max: 138.5 cm/sec MV A max roberto: 99.0 cm/sec Ao max P.9 mmHg MV E/A: 0.87 AI P1/2t: 518.5 msec MV dec time: 0.10 sec SAL(V,D): 3.0 cm2 AI max roberto: 545.1 cm/sec LV V1 max P.6 mmHg AI max P.9 mmHg LV V1 max: 117.9 cm/sec AI dec slope: 307.9 cm/sec2 MR max roberto: 506.6 cm/sec TR max roberto: 233.7 cm/sec MR max P.6 mmHg TR max P.8 mmHg PA V2 max: 113.0 cm/sec Med Peak E' Roberto: 4.7 cm/sec PA max P.1 mmHg Med E/e': 18.4 Lat Peak E' Roberto: 7.7 cm/sec Lat E/e': 11.2 Procedure A complete two-dimensional transthoracic echocardiogram was performed (2D, M-mode, Doppler and color flow Doppler). Left Ventricle The left ventricular size, thickness and function are normal. The left ventricular ejection fraction is normal. Ejection Fraction = 55-60%. The left ventricular wall motion is normal. Right Ventricle The right ventricle is normal in size and function. There is a pacemaker lead in the right ventricle. Atria Normal left and right atrial size and function. Mitral Valve There is mild mitral regurgitation. Tricuspid Valve There is trace tricuspid regurgitation. Right ventricular systolic pressure is normal. Aortic Valve No hemodynamically significant valvular aortic stenosis. Mild aortic regurgitation. Pulmonic Valve There is no pulmonic valvular regurgitation. Great Vessels Mild aortic root dilatation. Pericardium/Pleura There is no pericardial effusion. Interpretation Summary The left ventricular size, thickness and function are normal The right ventricle is normal in size and function. There is mild mitral regurgitation. There is trace tricuspid regurgitation. Mild aortic regurgitation. Mild aortic root dilatation. There is a pacemaker lead in the right ventricle. MD Richard Carvajal 11/16/2019 12:49 PM
--- NOTE | 2019-11-16 13:44 | PN ---
Progress Note (short form) - Note Progress Note: Hospitalist Medicine Sitting in bed, asymptomatic. Daughter at bedside. Seen by cardio Vitals 11/16/19 10:00 Temperature 97.9 F Pulse Rate 67 Respiratory 16 Rate Blood Pressure 160/67 Physical Exam General: resting comfortably in bed HEENT: NCAT, PERRLA neck: no JVD, supple cardio: S1, S2 RRR. no r/m/g pulm: CTA b/l. no accessory m usage abdomen: obese, nontender, nondistended LE: 2+ pt pulses, 1+ edema (chronic per pt) neuro: cost control specialist 2-12 grossly intact Laboratory Tests 11/15/19 11/15/19 11/15/19 13:50 13:50 15:05 BUN POC Glucometer Troponin I 0.14 H B-Natriuretic Peptide 1237.0 H Urine Protein 3+ H 11/16/19 11/16/19 11/16/19 05:18 05:18 06:09 WBC 7.2 Hgb 8.7 L Hct 26.7 L Plt Count 154 PT with INR INR Sodium 144 Potassium 4.6 Chloride 114 H BUN 45.3 H Creatinine 2.5 H POC Glucometer 82 Troponin I B-Natriuretic Peptide Urine Protein 11/16/19 11/16/19 07:50 07:50 Hct Plt Count PT with INR 24.40 H INR 2.05 H Sodium POC Glucometer Troponin I 0.12 H B-Natriuretic Peptide Imaging 11/15 EKG: +afib, rate controlled 81bpm, qtc 450ms, similar to previous 11/15 CXR: no significant change from previous, double lead PPM, no sign of infiltrate or failure. 11/16 ECHO: mild MR, trace TR, mild AR, PPM 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 Porter's office for evaluation of BP today. #HTN emergency (w/tropinemia) - improving -pt has been compliant, unclear etiology -no recent illnesses per pt, no signs of infection. UA (-), no sx -c/w home meds: hydralazine 50mg BID, aldactone, doxazosin, losartan -d/w cardio, can c/w 100mg TID starting tomorrow -ECHO result noted above -trops: 0.14, trend next. likely 2/2 CKD, demand -f/u a1c, TSH, lipid panel -serial EKGs -Cardio consult: Dr. Porter, follows pt as outpatient -Nephro: Dr. Mattson #afib -c/w current coumadin regimen -goal INR 2-3; currently therapeutic -c/t follow #asthma -not in exacerbation -while in hospital, nebs PRN, duonebs RQID #hx CKD, fibrillary GN -has contributed to pt's LE edema -c/w bumetanide PRN -renal consult: Dr. Mattson #hx DM2 -a1c WNL -can d/c bgm, iss #gout -c/w allopurinol #F/E/N no IVF at this time continue to follow lytes na controlled/diabetic diet #PPX DVT: coumadin #Dispo transfer to tele from ICU anticipate d/c 24hrs if BP maintained <Laura,Brandy - Last Filed: 11/16/19 16:44> - Note Progress Note: Seen and examined; please see resident note for further historical information. I personally verified all keen historical information and exam findings. Personally interpreted all imaging and diagnostics and reviewed appropriate consults. I reviewed all labs and vital signs as per resident note and EMR as documented. I agree with the above assessment and plan unless supplemented by myself in the following. 10 item review of systems completed and is negative aside from as discussed in the subjective data in my own/the resident documentation. VS, labs, imaging reviewed NAD, AAO, resting comfortably in bed. RRR s1/2 no mgr Normal muscle tone, moves all 5 extremities with normal apparent strength Neck is supple, trachea midline, no aisl[place] LN Lungs CTAB with sym expansion NT ND +BS no aislinn organomegaly CN2-12 wnl; no FND NC AT EOMI PERRLA Normal mood, appropriate behavior, euthymic affect No skin breakdown or rashes noted The blood pressure is improved, and the patient has no further symptoms. They will continue on Coumadin for the atrial fibrillation and we will titrate her antihypertensives alongside cardiology and nephrology. Aggressively following up with a BMP is given the progressive CKD is likely worsening due to the underlying uncontrolled hypertension process. Discussed with subspecialty services. <Alex Sequeira - Last Filed: 12/10/19 19:19>
[2019-11-16] MEDS ORDERED: LABETALOL HCL 5 MG/1 ML (100MG/20 ML VIAL) IVPUSH PRN (14:55)
--- NOTE | 2019-11-16 15:02 | PN ---
Physical Exam: SUBJECTIVE: Patient seen and examined in the morning. No acute events overnight. No events on cardiac monitoring. No complaints of chest pain, shortness of breath, dizziness, weakness, myalgias. OBJECTIVE: Vital Signs Period Temp Pulse Resp BP Sys/Montalvo Pulse Ox Last 24 Hr 97.8 F-98.5 F 65-78 16-20 143-208/66-104 94-100 GENERAL: The patient is awake, alert, and fully oriented, in no acute distress. HEAD: Normal with no signs of trauma. EYES: PERRLA, EOMI NECK: Trachea midline, full range of motion, supple. LUNGS: Breath sounds equal, clear to auscultation bilaterally, no wheezes HEART: Regular rate and rhythm, S1, S2 without murmur, rub or gallop. ABDOMEN: Soft, nontender, nondistended, normoactive bowel sounds. EXTREMITIES: 2+ pulses, warm, well-perfused,+1 edema, chronic. NEUROLOGICAL: Cranial nerves II through XII grossly intact. SKIN: Warm, dry, normal turgor, no rashes or lesions noted Laboratory Results - last 24 hr 11/15/19 11/15/19 11/15/19 13:50 15:05 16:17 WBC RBC Hgb Hct MCV MCH MCHC RDW Plt Count MPV Absolute Neuts (auto) Neutrophils % Lymphocytes % Monocytes % Eosinophils % Basophils % Nucleated RBC % PT with INR INR Sodium 144 Potassium 4.5 Chloride 114 H Carbon Dioxide 23 Anion Gap 7 L BUN 40.2 H Creatinine 2.6 H Est GFR (CKD-EPI)AfAm 20.53 Est GFR (CKD-EPI)NonAf 17.71 POC Glucometer Random Glucose 92 Hemoglobin A1c % 5.7 Calcium 8.7 Phosphorus Magnesium Total Bilirubin 0.3 AST 14 L ALT 16 Alkaline Phosphatase 78 Troponin I B-Natriuretic Peptide 1237.0 H Total Protein 6.5 Albumin 3.2 L Triglycerides 116 Cholesterol 196 Total LDL Cholesterol 94 HDL Cholesterol 70 H TSH 1.98 Urine Color Yellow Urine Appearance Clear Urine pH 5.5 Ur Specific [place] 1.017 Urine Protein 3+ H Urine Glucose (UA) Negative Urine Ketones Negative Urine Blood Trace Urine Nitrite Negative Urine Bilirubin Negative Urine Urobilinogen 0.2 Ur Leukocyte Esterase Negative Urine WBC (Auto) 5 Urine RBC (Auto) 16 Urine Casts (Auto) 3 U Epithel Cells (Auto) 2.3 Urine Bacteria (Auto) 27.3 11/15/19 11/15/19 11/16/19 16:56 20:55 05:18 WBC 7.2 RBC 3.11 L Hgb 8.7 L Hct 26.7 L MCV 85.8 MCH 28.0 MCHC 32.6 RDW 15.4 Plt Count 154 MPV 12.3 H Absolute Neuts (auto) 4.6 Neutrophils % 63.9 Lymphocytes % 22.9 Monocytes % 10.1 Eosinophils % 2.5 Basophils % 0.6 Nucleated RBC % 0 PT with INR INR Sodium Potassium Chloride Carbon Dioxide Anion Gap BUN Creatinine Est GFR (CKD-EPI)AfAm Est GFR (CKD-EPI)NonAf POC Glucometer 175 84 Random Glucose Hemoglobin A1c % Calcium Phosphorus Magnesium Total Bilirubin AST ALT Alkaline Phosphatase Troponin I B-Natriuretic Peptide Total Protein Albumin Triglycerides Cholesterol Total LDL Cholesterol HDL Cholesterol TSH Urine Color Urine Appearance Urine pH Ur Specific [place] Urine Protein Urine Glucose (UA) Urine Ketones Urine Blood Urine Nitrite Urine Bilirubin Urine Urobilinogen Ur Leukocyte Esterase Urine WBC (Auto) Urine RBC (Auto) Urine Casts (Auto) U Epithel Cells (Auto) Urine Bacteria (Auto) 11/16/19 11/16/19 11/16/19 05:18 06:09 07:50 WBC RBC Hgb Hct MCV MCH MCHC RDW Plt Count MPV Absolute Neuts (auto) Neutrophils % Lymphocytes % Monocytes % Eosinophils % Basophils % Nucleated RBC % PT with INR INR Sodium 144 Potassium 4.6 Chloride 114 H Carbon Dioxide 22 Anion Gap 8 BUN 45.3 H Creatinine 2.5 H Est GFR (CKD-EPI)AfAm 21.53 Est GFR (CKD-EPI)NonAf 18.57 POC Glucometer 82 Random Glucose 90 Hemoglobin A1c % Calcium 7.9 L Phosphorus 4.2 Magnesium 2.2 Total Bilirubin AST ALT Alkaline Phosphatase Troponin I 0.12 H B-Natriuretic Peptide Total Protein Albumin Triglycerides Cholesterol Total LDL Cholesterol HDL Cholesterol TSH Urine Color Urine Appearance Urine pH Ur Specific [place] Urine Protein Urine Glucose (UA) Urine Ketones Urine Blood Urine Nitrite Urine Bilirubin Urine Urobilinogen Ur Leukocyte Esterase Urine WBC (Auto) Urine RBC (Auto) Urine Casts (Auto) U Epithel Cells (Auto) Urine Bacteria (Auto) 11/16/19 07:50 WBC RBC Hgb Hct MCV MCH MCHC RDW Plt Count MPV Absolute Neuts (auto) Neutrophils % Lymphocytes % Monocytes % Eosinophils % Basophils % Nucleated RBC % PT with INR 24.40 H INR 2.05 H Sodium Potassium Chloride Carbon Dioxide Anion Gap BUN Creatinine Est GFR (CKD-EPI)AfAm Est GFR (CKD-EPI)NonAf POC Glucometer Random Glucose Hemoglobin A1c % Calcium Phosphorus Magnesium Total Bilirubin AST ALT Alkaline Phosphatase Troponin I B-Natriuretic Peptide Total Protein Albumin Triglycerides Cholesterol Total LDL Cholesterol HDL Cholesterol TSH Urine Color Urine Appearance Urine pH Ur Specific [place] Urine Protein Urine Glucose (UA) Urine Ketones Urine Blood Urine Nitrite Urine Bilirubin Urine Urobilinogen Ur Leukocyte Esterase Urine WBC (Auto) Urine RBC (Auto) Urine Casts (Auto) U Epithel Cells (Auto) Urine Bacteria (Auto) Active Medications Generic Name Dose Route Start Last Admin Trade Name Freq PRN Reason Stop Dose Admin Albuterol Sulfate 1 amp 11/15/19 16:51 Ventolin 0.083% Nebulizer Soln - NEB Q4H PRN SHORT OF BREATH/WHEEZING Albuterol/Ipratropium 1 amp 11/15/19 20:00 11/16/19 12:23 Duoneb - NEB Not Given RQID ADA Allopurinol 150 mg 11/16/19 22:00 Zyloprim - PO HS ADA Bumetanide 1 mg 11/16/19 08:50 11/16/19 12:01 Bumex - PO 1 mg DAILY PRN Administration leg swelling Chlorhexidine Gluconate 1 applic 11/16/19 22:00 Hibiclens For Decolonization - TP HS ADA Cholecalciferol 2,000 unit 11/16/19 10:00 11/16/19 09:09 Vitamin D3 - PO 2,000 unit DAILY ADA Administration Doxazosin Mesylate 2 mg 11/16/19 00:30 11/16/19 00:33 Cardura - PO 2 mg HS ADA Administration Ferrous Sulfate 325 mg 11/16/19 10:00 11/16/19 09:10 Feosol - PO 325 mg DAILY ADA Administration Hydralazine HCl 100 mg 11/16/19 10:00 11/16/19 09:10 Apresoline - PO 100 mg BID ADA Administration Hydralazine HCl 50 mg 11/16/19 16:00 Apresoline - PO 11/16/19 16:01 ONCE ONE Labetalol HCl 250 mg/ Sodium 250 mls @ 120 mls/hr 12/19/19 02:59 Chloride IV TITR ADA 2 MG/MIN Losartan Potassium 25 mg 11/16/19 10:00 11/16/19 09:10 Cozaar - PO 25 mg DAILY ADA Administration Mupirocin 1 applic 11/16/19 10:00 11/16/19 12:15 Bactroban Ointment (For Decolonization) - NS 11/21/19 09:59 1 applic BID ADA Administration Pramipexole Dihydrochloride 0.25 mg 11/15/19 22:00 11/15/19 21:43 Mirapex - PO Not Given HS DAA Spironolactone 25 mg 11/16/19 10:00 11/16/19 09:10 Aldactone - PO 25 mg DAILY ADA Administration Warfarin Sodium 5 mg 11/16/19 18:00 Coumadin - PO [email or web address] ADA Warfarin Sodium 10 mg 11/15/19 18:00 11/15/19 18:20 Coumadin - PO 10 mg TuWe@1800 ADA Administration ASSESSMENT/PLAN: 74 F with PMH asthma, DMII, afib (on coumadin), HTN, CKD, who was evaluated for hypertensive emergency. Neuro AAOx3,stable no issues Cardiovascular HTN emergency with tropinemia Hx of afib s/p pacemaker, ablation. On Coumadin -Goal BP (systolic) <140 -Patient on home meds of Spironolactone 25 mg PO daily, Hydralazine 100mg BID, Losartan 25mg PO daily. -Patient formerly on hydralazine 100 mg TID, can give additional dose of hydralazine if pressure not being controlled -Labetolol 10 mg IV pressure >170 -Echo shows normal LV, RV, mild MR, mild TR, mild Aortic Regurgitation, mild aortic root dilatation, pacemaker in right ventricle. -tropinemia resolved -Cardiology consulted, appreciate recs Endocrine Hx of diabetes -ISS GI Stable, no issues Na controlled diet Pulm Asthma, not in acute exacerbation -Duonebs QID -Albuterol PRN Renal Hx of CKD -Bumex Daily PRN F:Oral hydration E:Monitor CMP N: Sodium/diabetic diet DVT: Coumadin Dispo: ICU monitoring. Visit type - Emergency Visit Emergency Visit: Yes ED Registration Date: 11/15/19 Care time: The patient presented to the Emergency Department on the above date and was hospitalized for further evaluation of their emergent condition. - New Patient This patient is new to me today: Yes Date on this admission: 11/16/19 - Critical Care Critical Care patient: Yes Total Critical Care Time (in minutes): 45 Critical Care Statement: The care of this patient involved high complexity decision making to prevent further life threatening deterioration of the patient 's condition and/or to evaluate & treat vital organ system(s) failure or risk of failure. ATTENDING PHYSICIAN STATEMENT I saw and evaluated the patient. I reviewed the resident's note and discussed the case with the resident. I agree with the resident's findings and plan as documented. SUBJECTIVE: OBJECTIVE: ASSESSMENT AND PLAN:
[2019-11-16] MEDS ORDERED: hydrALAZINE HCL 50 MG TABLET (FP) PO ONE (16:00)
--- NOTE | 2019-11-16 16:00 | CONSULT ---
Consult Consult Specialty:: Nephrology Reason for Consultation:: CKD and HTN - History of Present Illness Chief Complaint: sent in for HTN History of Present Illness: Pt is a 74 year old female with pmhx of ckd, fibrillary GN, DM, asthma, and htn who presents to the ER with htn. SHe was sent in from her cardiologists office. She did feel some dizziness. She was found to be hypertensive and admitted to the hospital. her blood pressure is improved. She says that her hydralazine dose was recently changed. 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 She denies chest pain or shortness of breath. She denies dysuria or hematuria. - History Source History Provided By: Patient - Past Medical History MED PEDS: Yes: Other (Reflex sympathetic dystrophy syndrome and restless leg syndrome ) Cardio/Vascular: Yes: AFIB (PPM for bradycardia ? SSS), HTN, Other (LV diastolic dysfunction, mitral valve prolapse) Pulmonary: Yes: Asthma Gastrointestinal: Yes: Diverticulosis, Hiatal Hernia, Other (colon adenoma 2014) Renal/: Yes: Renal Inusuff (mesangial proliferative glomerulonephritis), Other (fibrillary glomerulonephritis) Musculoskeletal: Yes: Chronic low back pain (degenerative disc disease) Rheumatology: Yes: Fibromyalgia, Gout Endocrine: Yes: Diabetes Mellitus - Past Surgical History Past Surgical History: Yes: Appendectomy, , Hernia Repair (umbilical hernia repair), Hysterectomy (TAHBSO with appendectomy), Joint Replacement ( Right TKR), Tonsillectomy - Alcohol/Substance Use Hx Alcohol Use: No History of Substance Use: reports: None - Smoking History Smoking history: Never smoked Have you smoked in the past 12 months: No Aproximately how many cigarettes per day: 0 - Social History Usual Living Arrangement: Alone ADL: Independent 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 History of Recent Travel: No Home Medications - Allergies Allergies/Adverse Reactions: Allergies Allergy/AdvReac Type Severity Reaction Status Date / Time nifedipine [From Procardia] Allergy "breathing Verified 11/15/19 12:57 problems" nitroglycerin AdvReac "severe Verified 11/15/19 12:57 [From Nitroglyn] headache" - Home Medications Home Medications: Ambulatory Orders Allopurinol [Zyloprim -] 150 mg PO HS 11/07/16 Doxazosin Mesylate [Cardura -] 2 mg PO HS 11/07/16 Iron 1 tab PO DAILY 11/07/16 Bumetanide [Bumex -] 1 tab PO MOWEFR PRN 09/13/17 Cholecalciferol (Vitamin D3) [Vitamin D3] 1 cap PO DAILY 09/13/17 Warfarin Na [Coumadin -] 5 mg PO SuMoThFrSa@1800 tablet 03/31/18 Warfarin Na [Coumadin -] 10 mg PO TuWe@1800 tablet 03/31/18 Hydralazine HCl 100 mg PO BID 06/28/19 Albuterol Sulfate [Proair Digihaler] 1 puff IH PRN PRN 11/15/19 Losartan Potassium 25 mg PO DAILY 11/15/19 Nortriptyline HCl [Pamelor -] 10 mg PO DAILY 11/15/19 Pramipexole Di-HCl [Pramipexole Dihydrochloride] 0.25 mg PO HS 11/15/19 Salmeterol/Fluticasone [Advair 100Mcg/50Mcg -] 1 puff IH BID PRN 11/15/19 Spironolactone [Aldactone -] 25 mg PO DAILY 11/15/19 Family Medical History Family History: Denies Review of Systems - Review of Systems Constitutional: reports: Malaise Eyes: reports: No Symptoms HENT: reports: No Symptoms Neck: reports: No Symptoms Cardiovascular: reports: No Symptoms Respiratory: reports: No Symptoms Gastrointestinal: reports: No Symptoms Genitourinary: reports: No Symptoms Musculoskeletal: reports: No Symptoms Integumentary: reports: No Symptoms Neurological: reports: No Symptoms Endocrine: reports: No Symptoms Hematology/Lymphatic: reports: No Symptoms Psychiatric: reports: No Symptoms Physical Exam Vital Signs: Vital Signs Temperature 98.0 F 11/16/19 14:00 Pulse Rate 68 11/16/19 14:00 Respiratory Rate 20 11/16/19 14:00 Blood Pressure 143/66 11/16/19 14:00 O2 Sat by Pulse Oximetry (%) 100 11/16/19 09:00 Constitutional: Yes: Calm Eyes: Yes: Conjunctiva Clear HENT: Yes: Atraumatic Cardiovascular: Yes: S1, S2 Respiratory: Yes: CTA Bilaterally Gastrointestinal: Yes: Soft Renal/: Yes: WNL Extremities: Yes: WNL Edema: No Integumentary: Yes: WNL Neurological: Yes: Oriented Psychiatric: Yes: Oriented Labs: CBC, BMP 12/19/19 05:18 11/16/19 05:18 Imaging - Results Chest X-ray: Report Reviewed Problem List - Problems (1) Chronic renal disease Code(s): N18.9 - CHRONIC KIDNEY DISEASE, UNSPECIFIED Qualifiers: Chronic kidney disease stage: unspecified stage Qualified Code(s): N18.9 - Chronic kidney disease, unspecified (2) Hypertension Code(s): I10 - ESSENTIAL (PRIMARY) HYPERTENSION Qualifiers: Hypertension type: unspecified Qualified Code(s): I10 - Essential (primary ) hypertension Assessment/Plan Current Medications Generic Name Dose Route Start Last Admin Trade Name Freq PRN Reason Stop Dose Admin Albuterol Sulfate 1 amp 11/15/19 16:51 Ventolin 0.083% Nebulizer Soln - NEB Q4H PRN SHORT OF BREATH/WHEEZING Albuterol/Ipratropium 1 amp 11/15/19 20:00 11/16/19 15:40 Duoneb - NEB Not Given RQID ADA Allopurinol 150 mg 11/16/19 22:00 Zyloprim - PO HS ADA Bumetanide 1 mg 11/16/19 08:50 11/16/19 12:01 Bumex - PO 1 mg DAILY PRN Administration leg swelling Chlorhexidine Gluconate 1 applic 11/16/19 22:00 Hibiclens For Decolonization - TP HS ADA Cholecalciferol 2,000 unit 11/16/19 10:00 11/16/19 09:09 Vitamin D3 - PO 2,000 unit DAILY ADA Administration Doxazosin Mesylate 2 mg 11/16/19 00:30 11/16/19 00:33 Cardura - PO 2 mg HS ADA Administration Ferrous Sulfate 325 mg 11/16/19 10:00 11/16/19 09:10 Feosol - PO 325 mg DAILY ADA Administration Hydralazine HCl 100 mg 11/16/19 10:00 11/16/19 09:10 Apresoline - PO 100 mg BID ADA Administration Labetalol HCl 250 mg/ Sodium 250 mls @ 120 mls/hr 11/16/19 02:59 Chloride IV TITR ADA 2 MG/MIN Labetalol HCl 10 mg 11/16/19 14:55 Normodyne Injection - IVPUSH ONCE PRN HYPERTENSION Losartan Potassium 25 mg 11/16/19 10:00 11/16/19 09:10 Cozaar - PO 25 mg DAILY [facility] Administration Mupirocin 1 applic 11/16/19 10:00 11/16/19 12:15 Bactroban Ointment (For Decolonization) - NS 11/21/19 09:59 1 applic BID ADA Administration Pramipexole Dihydrochloride 0.25 mg 11/15/19 22:00 11/15/19 21:43 Mirapex - PO Not Given [facility] Spironolactone 25 mg 11/16/19 10:00 11/16/19 09:10 Aldactone - PO 25 mg DAILY [facility] Administration Warfarin Sodium 5 mg 11/16/19 18:00 Coumadin - PO SuMoThFrSa@1800 [facility] Warfarin Sodium 10 mg 11/15/19 18:00 11/15/19 18:20 Coumadin - PO 10 mg TuWe@1800 [facility] Administration Impression 1. CKD 2. fibrillary GN 3. HTN 4. DM 5. palpitations 6. anemia 7. SUMEET 8. diarrhea Plan - pt was on 100 mg of losartan - resume home meds - cont hydralazine - can increase to TID as needed - cont diuretics - will follow Dr Mattson
[2019-11-16] MEDS ORDERED: WARFARIN NA 5 MG TABLET (UD) PO SCH (18:00)
[2019-11-16] MEDS ORDERED: CHLORHEXIDINE GLUCONATE 4% CLEANSER FOR DECOLONIZATION TP SCH (22:00)
[2019-11-17] MEDS ORDERED: hydrALAZINE HCL 50 MG TABLET (FP) PO ONE (03:06)
[2019-11-17 04:19] VITALS: TEMP 98.3
[2019-11-17 07:02] LABS: BASO % 0.7 % (0-2.0); EOS % 3.2 % (0-4.5); HEMATOCRIT 25.4 % (32.4-45.2); HEMOGLOBIN 8.2 GM/dL (10.7-15.3); LYMPH % 21.6 % (8-40); MCH 27.5 pg (25.7-33.7); MCHC 32.3 g/dl (32.0-36.0); MEAN CELL VOLUME 85.3 fl (80-96); MEAN PLT VOLUME 11.4 fl (7.5-11.1); MONO % 10.7 % (3.8-10.2); NEUT % 63.8 % (42.8-82.8); PLATELET COUNT 151 K/MM3 (134-434); RBC 2.98 M/mm3 (3.60-5.2); WHITE BLOOD COUNT 7.8 K/mm3 (4.0-10.0)
[2019-11-17 07:31] LABS: ALBUMIN 2.7 g/dl (3.4-5.0); BILIRUBIN,TOTAL 0.2 mg/dL (0.2-1); BLOOD UREA NITROGEN 47.7 mg/dL (7-18); CREATININE 2.6 mg/dL (0.55-1.3); MAGNESIUM 2.2 mg/dL (1.8-2.4); PHOSPHOROUS 4.4 mg/dL (2.5-4.9); POTASSIUM 4.5 mmol/L (3.5-5.1); TOT PROT 5.5 g/dl (6.4-8.2)
[2019-11-17] MEDS: ALBUTEROL SO4 2.5/IPRATROPIUM 0.5 INH SOL 3 ML VIAL.NEB. NEB SCH ×2 (08:38→11:53)
[2019-11-17] MEDS: CHOLECALCIFEROL (VIT D3) 1,000 UNIT (25 MCG) TABLET PO SCH (09:12)
[2019-11-17] MEDS: SPIRONOLACTONE 25 MG TABLET (FP) PO SCH (09:12)
[2019-11-17] MEDS: FERROUS SO4 325 MG TABLET (FP) PO SCH (09:12)
[2019-11-17] MEDS: hydrALAZINE HCL 50 MG TABLET (FP) PO SCH (09:12)
[2019-11-17] MEDS ORDERED: LOSARTAN POTASSIUM 50 MG TABLET (FP) PO SCH (10:00)
--- NOTE | 2019-11-17 10:07 | PN ---
Teaching Attending Note Name of Resident: Marie Brown ATTENDING PHYSICIAN STATEMENT I saw and evaluated the patient. I reviewed the resident's note and discussed the case with the resident. I agree with the resident's findings and plan as documented. SUBJECTIVE: Patient seen and examined in the ICU. Awake and alert. Denies CP or SOB. No BARRERA, BOV, dizziness. BP better controlled. Intake & Output 11/14/19 11/15/19 11/16/19 11/17/19 23:59 23:59 23:59 23:59 Intake Total 740 240 250 Balance 740 240 250 Weight 226 lb 9.6 oz Last Vital Signs Temp Pulse Resp BP Pulse Ox 98.3 F 80 21 H 135/94 100 11/17/19 02:00 11/17/19 06:00 11/17/19 06:00 11/17/19 06:00 11/16/19 20:48 Active Medications Albuterol Sulfate (Ventolin 0.083% Nebulizer Soln -) 1 amp NEB Q4H PRN PRN Reason: SHORT OF BREATH/WHEEZING Albuterol/Ipratropium (Duoneb -) 1 amp NEB RQID [facility] Last Admin: 11/17/19 08:38 Dose: Not Given Allopurinol (Zyloprim -) 150 mg PO HS [facility] Last Admin: 11/16/19 22:05 Dose: 150 mg Bumetanide (Bumex -) 1 mg PO DAILY PRN PRN Reason: leg swelling Last Admin: 11/16/19 12:01 Dose: 1 mg Chlorhexidine Gluconate (Hibiclens For Decolonization -) 1 applic TP HS [facility] Last Admin: 11/16/19 22:06 Dose: 1 applic Cholecalciferol (Vitamin D3 -) 2,000 unit PO DAILY [facility] Last Admin: 11/17/19 09:12 Dose: 2,000 unit Doxazosin Mesylate (Cardura -) 2 mg PO HS [facility] Last Admin: 11/16/19 22:06 Dose: 2 mg Ferrous Sulfate (Feosol -) 325 mg PO DAILY [facility] Last Admin: 11/17/19 09:12 Dose: 325 mg Hydralazine HCl (Apresoline -) 100 mg PO BID [facility] Last Admin: 11/17/19 09:12 Dose: 100 mg Labetalol HCl 250 mg/ Sodium (Chloride) 250 mls @ 120 mls/hr IV TITR ADA Labetalol HCl (Normodyne Injection -) 10 mg IVPUSH ONCE PRN PRN Reason: HYPERTENSION Last Admin: 11/16/19 19:01 Dose: 10 mg Losartan Potassium (Cozaar -) 100 mg PO DAILY [facility] Last Admin: 11/17/19 09:12 Dose: 100 mg Mupirocin (Bactroban Ointment (For Decolonization) -) 1 applic NS BID [facility] Stop: 11/21/19 09:59 Last Admin: 11/16/19 22:06 Dose: 1 applic Spironolactone (Aldactone -) 25 mg PO DAILY [facility] Last Admin: 11/17/19 09:12 Dose: 25 mg Warfarin Sodium (Coumadin -) 5 mg PO [email or web address]@1800 [facility] Last Admin: 11/16/19 22:05 Dose: 5 mg Warfarin Sodium (Coumadin -) 10 mg PO TuWe@1800 [facility] Last Admin: 11/15/19 18:20 Dose: 10 mg GENERAL: Awake, alert, and fully oriented, in no acute distress. EYES: PEERLA; EOMI; no scleral icterus NECK: no JVD; no lymphadenopathy LUNGS: CTA B/L; no rales, rhonchi or wheezing HEART: Regular rate and rhythm, normal S1 and S2 without murmur, rub or gallop. ABDOMEN: Soft, NT/ND +BS in all 4 quadrants EXTREMITIES: warm; well-perfused 1-2+ pitting edema BL NEUROLOGICAL: Non-focal PSYCHIATRIC: Cooperative. Good eye contact. Appropriate mood and affect. SKIN: Warm, dry, normal turgor, no rashes or lesions noted. Laboratory Results - last 24 hr 11/17/19 11/17/19 05:15 05:15 WBC 7.8 RBC 2.98 L Hgb 8.2 L Hct 25.4 L MCV 85.3 MCH 27.5 MCHC 32.3 RDW 15.0 Plt Count 151 MPV 11.4 H Absolute Neuts (auto) 5.0 Neutrophils % 63.8 Lymphocytes % 21.6 Monocytes % 10.7 H Eosinophils % 3.2 Basophils % 0.7 Nucleated RBC % 0 Sodium 143 Potassium 4.5 Chloride 114 H Carbon Dioxide 22 Anion Gap 7 L BUN 47.7 H Creatinine 2.6 H Est GFR (CKD-EPI)AfAm 20.53 Est GFR (CKD-EPI)NonAf 17.71 Random Glucose 93 Calcium 8.0 L Phosphorus 4.4 Magnesium 2.2 Total Bilirubin 0.2 AST 14 L ALT 15 Alkaline Phosphatase 64 Total Protein 5.5 L Albumin 2.7 L Problem List - Problems (1) Chronic renal disease Code(s): N18.9 - CHRONIC KIDNEY DISEASE, UNSPECIFIED Qualifiers: Chronic kidney disease stage: unspecified stage Qualified Code(s): N18.9 - Chronic kidney disease, unspecified (2) Hypertension Code(s): I10 - ESSENTIAL (PRIMARY) HYPERTENSION Qualifiers: Hypertension type: unspecified Qualified Code(s): I10 - Essential (primary ) hypertension (3) Troponin level elevated Code(s): R79.89 - OTHER SPECIFIED ABNORMAL FINDINGS OF BLOOD CHEMISTRY ASSESSMENT/PLAN Accelerated Hypertension Mild Intermittent Asthma: stable DM AFib on Coumadin HTN CKD Anti-HTN titration per Cardiology O2 as needed PO as tolerated Coumadin with following of INR OOB to chair Glycemic control DC planning Dr Moss
[2019-11-17 10:10] VITALS: PULSE 70
[2019-11-17 10:36] LABS: INR 2.18 (0.83-1.09); PROTHROMBIN TIME (PATIENT) 25.9 SEC (9.7-13.0)
--- NOTE | 2019-11-17 11:41 | PN ---
Physical Exam: SUBJECTIVE: Patient seen and examined. No acute events overnight. Patient feels well. BP 135/94. Continuing home HTN meds. Denies CP/ SOB/ palpitations/ lightheadedness/ abdominal pain/ N/V/D/ fevers/ chills/ myalgias. OBJECTIVE: Vital Signs Period Temp Pulse Resp BP Sys/Montalvo Pulse Ox Last 24 Hr 97.3 F-98.3 F 63-80 16-22 135-167/66-94 100-100 GENERAL: AOx3 NAD. Sitting up in chair. HEENT: NCAT. PERRLA. Conjunctiva clear. LUNGS: CTABL no incr work of breathing HEART: Regular rate and rhythm, S1, S2 without murmur, rub or gallop. ABDOMEN: Foft NTND EXTREMITIES: 2+ pulses, warm, well-perfused, 1+ b/l chronic edema NEUROLOGICAL: nonfocal exam PSYCH: Normal mood, normal affect. SKIN: No rashes or lesions noted Laboratory Results - last 24 hr 11/17/19 11/17/19 11/17/19 05:15 05:15 09:40 WBC 7.8 RBC 2.98 L Hgb 8.2 L Hct 25.4 L MCV 85.3 MCH 27.5 MCHC 32.3 RDW 15.0 Plt Count 151 MPV 11.4 H Absolute Neuts (auto) 5.0 Neutrophils % 63.8 Lymphocytes % 21.6 Monocytes % 10.7 H Eosinophils % 3.2 Basophils % 0.7 Nucleated RBC % 0 PT with INR 25.90 H INR 2.18 H Sodium 143 Potassium 4.5 Chloride 114 H Carbon Dioxide 22 Anion Gap 7 L BUN 47.7 H Creatinine 2.6 H Est GFR (CKD-EPI)AfAm 20.53 Est GFR (CKD-EPI)NonAf 17.71 Random Glucose 93 Calcium 8.0 L Phosphorus 4.4 Magnesium 2.2 Total Bilirubin 0.2 AST 14 L ALT 15 Alkaline Phosphatase 64 Total Protein 5.5 L Albumin 2.7 L Active Medications Generic Name Dose Route Start Last Admin Trade Name Freq PRN Reason Stop Dose Admin Albuterol Sulfate 1 amp 11/15/19 16:51 Ventolin 0.083% Nebulizer Soln - NEB Q4H PRN SHORT OF BREATH/WHEEZING Albuterol/Ipratropium 1 amp 11/15/19 20:00 11/17/19 08:38 Duoneb - NEB Not Given RQID ADA Allopurinol 150 mg 11/16/19 22:00 11/16/19 22:05 Zyloprim - PO 150 mg HS ADA Administration Bumetanide 1 mg 11/16/19 08:50 11/16/19 12:01 Bumex - PO 1 mg DAILY PRN Administration leg swelling Chlorhexidine Gluconate 1 applic 11/16/19 22:00 11/16/19 22:06 Hibiclens For Decolonization - TP 1 applic HS ADA Administration Cholecalciferol 2,000 unit 11/16/19 10:00 11/17/19 09:12 Vitamin D3 - PO 2,000 unit DAILY ADA Administration Doxazosin Mesylate 2 mg 11/16/19 00:30 11/16/19 22:06 Cardura - PO 2 mg HS ADA Administration Ferrous Sulfate 325 mg 11/16/19 10:00 11/17/19 09:12 Feosol - PO 325 mg DAILY ADA Administration Hydralazine HCl 100 mg 11/16/19 10:00 11/17/19 09:12 Apresoline - PO 100 mg BID ADA Administration Labetalol HCl 250 mg/ Sodium 250 mls @ 120 mls/hr 11/16/19 02:59 Chloride IV TITR ADA 2 MG/MIN Labetalol HCl 10 mg 11/16/19 14:55 11/16/19 19:01 Normodyne Injection - IVPUSH 10 mg ONCE PRN Administration HYPERTENSION Losartan Potassium 100 mg 11/17/19 10:00 11/17/19 09:12 Cozaar - PO 100 mg DAILY ADA Administration Mupirocin 1 applic 11/16/19 10:00 11/16/19 22:06 Bactroban Ointment (For Decolonization) - NS 11/21/19 09:59 1 applic BID ADA Administration Spironolactone 25 mg 11/16/19 10:00 11/17/19 09:12 Aldactone - PO 25 mg DAILY ADA Administration Warfarin Sodium 5 mg 11/16/19 18:00 11/16/19 22:05 Coumadin - PO 5 mg SuMoThFrSa@1800 ADA Administration Warfarin Sodium 10 mg 11/15/19 18:00 11/15/19 18:20 Coumadin - PO 10 mg TuWe@1800 ADA Administration ASSESSMENT/PLAN: 74 y.o. 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 qtc 450 -C/w coumadin; INR therapeutic -Echo 11/16: Mild MR, AR , aortic root dilatation. Trace TR. 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 -BP 136-167/ 68-94 -C/w home anti HTN meds: aldactone, hydralazine, labetalol, cardura -Spoke w/ Dr. 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 #Pulm -Satting well on room air -Chest XR neagtive for acute pathology -Hx asthma, c/w nebs prn #Renal -SUMEET on CKD resolved -C/w diuretics #Endo -HbA1c 5.7% -BGMs, ISS d/c'd #Heme/ Onc -normocytic anemia -C/w feosol #FEN -no standing fluids -trend lytes -renal Na controlled diet #PPX -on coumadin #Dispo home w/ cardio follow up on Wednesday (Dr. Porter) Visit type - Emergency Visit Emergency Visit: Yes ED Registration Date: 11/15/19 Care time: The patient presented to the Emergency Department on the above date and was hospitalized for further evaluation of their emergent condition. - New Patient This patient is new to me today: Yes Date on this admission: 11/17/19 - Critical Care Critical Care patient: Yes Total Critical Care Time (in minutes): 36 Critical Care Statement: The care of this patient involved high complexity decision making to prevent further life threatening deterioration of the patient 's condition and/or to evaluate & treat vital organ system(s) failure or risk of failure. ATTENDING PHYSICIAN STATEMENT I saw and evaluated the patient. I reviewed the resident's note and discussed the case with the resident. I agree with the resident's findings and plan as documented. SUBJECTIVE: OBJECTIVE: ASSESSMENT AND PLAN:
[2019-11-17 12:01] VITALS: BMI 37.5
[2019-11-17 14:23] VITALS: BP 160/71
--- NOTE | 2019-11-17 14:23 | PN ---
Progress Note, Physician History of Present Illness: Pt seen and examined at bedside. She is awake and alert. She denies shortness of breath. She is eager to go home. - Current Medication List Current Medications: Active Medications Albuterol Sulfate (Ventolin 0.083% Nebulizer Soln -) 1 amp NEB Q4H PRN PRN Reason: SHORT OF BREATH/WHEEZING Albuterol/Ipratropium (Duoneb -) 1 amp NEB RQID [facility] Last Admin: 11/17/19 11:53 Dose: Not Given Allopurinol (Zyloprim -) 150 mg PO HS [facility] Last Admin: 11/16/19 22:05 Dose: 150 mg Bumetanide (Bumex -) 1 mg PO DAILY PRN PRN Reason: leg swelling Last Admin: 11/16/19 12:01 Dose: 1 mg Chlorhexidine Gluconate (Hibiclens For Decolonization -) 1 applic TP HS [facility] Last Admin: 11/16/19 22:06 Dose: 1 applic Cholecalciferol (Vitamin D3 -) 2,000 unit PO DAILY [facility] Last Admin: 11/17/19 09:12 Dose: 2,000 unit Doxazosin Mesylate (Cardura -) 2 mg PO HS [facility] Last Admin: 11/16/19 22:06 Dose: 2 mg Ferrous Sulfate (Feosol -) 325 mg PO DAILY [facility] Last Admin: 11/17/19 09:12 Dose: 325 mg Hydralazine HCl (Apresoline -) 100 mg PO BID [facility] Last Admin: 11/17/19 09:12 Dose: 100 mg Labetalol HCl 250 mg/ Sodium (Chloride) 250 mls @ 120 mls/hr IV TITR ADA Labetalol HCl (Normodyne Injection -) 10 mg IVPUSH ONCE PRN PRN Reason: HYPERTENSION Last Admin: 11/16/19 19:01 Dose: 10 mg Losartan Potassium (Cozaar -) 100 mg PO DAILY [facility] Last Admin: 11/17/19 09:12 Dose: 100 mg Mupirocin (Bactroban Ointment (For Decolonization) -) 1 applic NS BID [facility] Stop: 11/21/19 09:59 Last Admin: 11/16/19 22:06 Dose: 1 applic Spironolactone (Aldactone -) 25 mg PO DAILY [facility] Last Admin: 11/17/19 09:12 Dose: 25 mg Warfarin Sodium (Coumadin -) 5 mg PO SuMoThFrSa@1800 [facility] Last Admin: 11/16/19 22:05 Dose: 5 mg Warfarin Sodium (Coumadin -) 10 mg PO TuWe@1800 [facility] Last Admin: 11/15/19 18:20 Dose: 10 mg - Objective Vital Signs: Vital Signs Temperature 98.3 F 11/17/19 02:00 Pulse Rate 70 11/17/19 10:00 Respiratory Rate 21 H 11/17/19 12:00 Blood Pressure 157/75 11/17/19 12:00 O2 Sat by Pulse Oximetry (%) 100 11/17/19 09:00 Constitutional: Yes: Calm Eyes: Yes: Conjunctiva Clear HENT: Yes: Atraumatic Neck: Yes: Supple Cardiovascular: Yes: S1, S2 Respiratory: Yes: CTA Bilaterally Gastrointestinal: Yes: Soft Genitourinary: Yes: WNL Musculoskeletal: Yes: WNL Edema: Yes Edema: LLE: Trace, RLE: Trace Neurological: Yes: Oriented Psychiatric: Yes: Oriented Labs: CBC, BMP 11/17/19 05:15 11/17/19 05:15 INR, PTT INR 2.18 (0.83-1.09) H 11/17/19 09:40 Problem List - Problems (1) Chronic renal disease Code(s): N18.9 - CHRONIC KIDNEY DISEASE, UNSPECIFIED Qualifiers: Chronic kidney disease stage: unspecified stage Qualified Code(s): N18.9 - Chronic kidney disease, unspecified (2) Hypertension Code(s): I10 - ESSENTIAL (PRIMARY) HYPERTENSION Qualifiers: Hypertension type: unspecified Qualified Code(s): I10 - Essential (primary ) hypertension Assessment/Plan Current Medications Generic Name Dose Route Start Last Admin Trade Name Freq PRN Reason Stop Dose Admin Albuterol Sulfate 1 amp 11/15/19 16:51 Ventolin 0.083% Nebulizer Soln - NEB Q4H PRN SHORT OF BREATH/WHEEZING Albuterol/Ipratropium 1 amp 11/15/19 20:00 11/17/19 11:53 Duoneb - NEB Not Given RQID ADA Allopurinol 150 mg 11/16/19 22:00 11/16/19 22:05 Zyloprim - PO 150 mg [facility] Administration Bumetanide 1 mg 11/16/19 08:50 11/16/19 12:01 Bumex - PO 1 mg DAILY PRN Administration leg swelling Chlorhexidine Gluconate 1 applic 11/16/19 22:00 11/16/19 22:06 Hibiclens For Decolonization - TP 1 applic HS ADA Administration Cholecalciferol 2,000 unit 11/16/19 10:00 11/17/19 09:12 Vitamin D3 - PO 2,000 unit DAILY ADA Administration Doxazosin Mesylate 2 mg 11/16/19 00:30 11/16/19 22:06 Cardura - PO 2 mg HS ADA Administration Ferrous Sulfate 325 mg 11/16/19 10:00 11/17/19 09:12 Feosol - PO 325 mg DAILY ADA Administration Hydralazine HCl 100 mg 11/16/19 10:00 11/17/19 09:12 Apresoline - PO 100 mg BID ADA Administration Labetalol HCl 250 mg/ Sodium 250 mls @ 120 mls/hr 11/16/19 02:59 Chloride IV TITR ADA 2 MG/MIN Labetalol HCl 10 mg 11/16/19 14:55 11/16/19 19:01 Normodyne Injection - IVPUSH 10 mg ONCE PRN Administration HYPERTENSION Losartan Potassium 100 mg 11/17/19 10:00 11/17/19 09:12 Cozaar - PO 100 mg DAILY ADA Administration Mupirocin 1 applic 11/16/19 10:00 11/16/19 22:06 Bactroban Ointment (For Decolonization) - NS 11/21/19 09:59 1 applic BID ADA Administration Spironolactone 25 mg 11/16/19 10:00 11/17/19 09:12 Aldactone - PO 25 mg DAILY ADA Administration Warfarin Sodium 5 mg 11/16/19 18:00 11/16/19 22:05 Coumadin - PO 5 mg SuMoThFrSa@1800 ADA Administration Warfarin Sodium 10 mg 11/15/19 18:00 11/15/19 18:20 Coumadin - PO 10 mg TuWe@1800 ADA Administration Impression 1. CKD 2. fibrillary GN 3. HTN 4. DM 5. palpitations 6. anemia 7. SUMEET 8. diarrhea Plan - cont bp meds - pt will monitor bp meds at home - she will follow with Dr Ramirez - case discussed with pt and family - cont diuretics - will follow Dr Mattson
--- NOTE | 2019-11-17 20:07 | DS ---
Physical Exam: SUBJECTIVE: Patient seen and examined at bedside. Asymptomatic. Ready to go home OBJECTIVE: Vital Signs Period Temp Pulse Resp BP Sys/Montalvo Pulse Ox Last 24 Hr 97.3 F-98.3 F 63-80 16-22 135-167/68-94 100-100 Physical Exam General: resting comfortably in bed HEENT: NCAT, PERRLA neck: no JVD, supple cardio: S1, S2 RRR. no r/m/g pulm: CTA b/l. no accessory m usage abdomen: obese, nontender, nondistended LE: 2+ pt pulses, 1+ edema (chronic per pt) neuro: media executive 2-12 grossly intact LABS Laboratory Results - last 24 hr 11/17/19 11/17/19 11/17/19 05:15 05:15 09:40 WBC 7.8 RBC 2.98 L Hgb 8.2 L Hct 25.4 L MCV 85.3 MCH 27.5 MCHC 32.3 RDW 15.0 Plt Count 151 MPV 11.4 H Absolute Neuts (auto) 5.0 Neutrophils % 63.8 Lymphocytes % 21.6 Monocytes % 10.7 H Eosinophils % 3.2 Basophils % 0.7 Nucleated RBC % 0 PT with INR 25.90 H INR 2.18 H Sodium 143 Potassium 4.5 Chloride 114 H Carbon Dioxide 22 Anion Gap 7 L BUN 47.7 H Creatinine 2.6 H Est GFR (CKD-EPI)AfAm 20.53 Est GFR (CKD-EPI)NonAf 17.71 Random Glucose 93 Calcium 8.0 L Phosphorus 4.4 Magnesium 2.2 Total Bilirubin 0.2 AST 14 L ALT 15 Alkaline Phosphatase 64 Total Protein 5.5 L Albumin 2.7 L Blood pressure trend 11/15/19 11/15/19 11/15/19 12:57 17:40 20:40 Blood Pressure 210/95 H 156/79 185/96 H 11/15/19 11/16/19 11/16/19 21:28 00:15 01:25 Blood Pressure 208/98 H 200/104 H 181/79 H 11/16/19 11/16/19 11/16/19 02:00 06:00 12:00 Blood Pressure 148/79 152/71 161/72 11/16/19 11/16/19 11/17/19 20:00 22:00 01:00 Blood Pressure 156/68 166/75 156/75 11/17/19 11/17/19 11/17/19 04:00 10:00 12:00 Blood Pressure 156/73 157/75 160/79 11/17/19 13:07 Blood Pressure 160/71 Imaging 11/15 EKG: +afib, rate controlled 81bpm, qtc 450ms, similar to previous 11/15 CXR: no significant change from previous, double lead PPM, no sign of infiltrate or failure. 11/16 ECHO: mild MR, trace TR, mild AR, PPM HOSPITAL COURSE: Date of Admission:11/15/19 Date of Discharge: 11/17/19 74 y/o F with PMH asthma, DM2, afib (on coumadin), HTN, CKD, fibrillary GN ( followed by Dr. Naomi Liang), who was sent from Dr. Porter's office for evaluation of BP today. #HTN emergency (w/tropinemia) - improving -pt has been compliant, unclear etiology -no recent illnesses per pt, no signs of infection. UA (-), no sx -hydralazine has been titrated to 100mg BID, can take additional 50mg at home if does not improve (per cardio) -c/w losartan, aldactone -ECHO result noted above -trops elevated likely 2/2 CKD, demand ischemia -serial EKGs -will f/u cardio, nephro #afib -c/w current coumadin regimen -goal INR 2-3; currently therapeutic -cont to f/u as outpatient #asthma -while in hospital, nebs PRN, duonebs RQID #hx CKD, fibrillary GN -has contributed to pt's LE edema -c/w bumetanide PRN -renal consult: Dr. Mattson #hx DM2 -a1c WNL -can d/c bgm, iss Minutes to complete discharge: 45 <Brandy Sanchez - Last Filed: 11/17/19 20:01> Physical Exam: Seen and examined; please see resident note for further historical information. I personally verified all keen historical information and exam findings. Personally interpreted all imaging and diagnostics and reviewed appropriate consults. I reviewed all labs and vital signs as per resident note and EMR as documented. I agree with the above assessment and plan unless supplemented by myself in the following. 10 item review of systems completed and is negative aside from as discussed in the subjective data in my own/the resident documentation. VS, labs, imaging reviewed NAD, AAO, resting comfortably in bed. RRR s1/2 no mgr Normal muscle tone, moves all 5 extremities with normal apparent strength Neck is supple, trachea midline, no aisl[place] LN Lungs CTAB with sym expansion NT ND +BS no aislinn organomegaly CN2-12 wnl; no FND NC AT EOMI PERRLA Normal mood, appropriate behavior, euthymic affect No skin breakdown or rashes noted Patient was seen for hypertensive emergency and titrated up her hydralazine dose 200 mg twice daily and continued on losartan and Aldactone. Discharge meds as per list. Patient was seen by Dr. Romero a further history of CKD and will follow-up outpatient Maximally benefited from this hospitalization and would not benefit from a further days inpatient <Alex Sequeira - Last Filed: 12/10/19 19:18> Discharge Summary Problems reviewed: Yes Reason For Visit: ELEVATED TROPONIN LEVEL, HYPERTENSION - Home Medications Comprehensive Discharge Medication List: Ambulatory Orders Allopurinol [Zyloprim -] 150 mg PO HS 11/07/16 Doxazosin Mesylate [Cardura -] 2 mg PO HS 11/07/16 Iron 1 tab PO DAILY 11/07/16 Bumetanide [Bumex -] 1 tab PO MOWEFR PRN 09/13/17 Cholecalciferol (Vitamin D3) [Vitamin D3] 1 cap PO DAILY 09/13/17 Warfarin Na [Coumadin -] 5 mg PO SuMoThFrSa@1800 tablet 03/31/18 Warfarin Na [Coumadin -] 10 mg PO TuWe@1800 tablet 03/31/18 Albuterol Sulfate [Proair Digihaler] 1 puff IH PRN PRN 11/15/19 Losartan Potassium 25 mg PO DAILY 11/15/19 Salmeterol/Fluticasone [Advair 100Mcg/50Mcg -] 1 puff IH BID PRN 11/15/19 Spironolactone [Aldactone -] 25 mg PO DAILY 11/15/19 Hydralazine HCl 50 mg PO DAILY PRN #30 tablet 11/17/19 Hydralazine HCl 100 mg PO BID #60 tablet 11/17/19 <Brandy Sanchez - Last Filed: 11/17/19 20:01> - Home Medications Comprehensive Discharge Medication List: Ambulatory Orders Allopurinol [Zyloprim -] 150 mg PO HS 11/07/16 Doxazosin Mesylate [Cardura -] 2 mg PO HS 11/07/16 Iron 1 tab PO DAILY 11/07/16 Bumetanide [Bumex -] 1 tab PO MOWEFR PRN 09/13/17 Cholecalciferol (Vitamin D3) [Vitamin D3] 1 cap PO DAILY 09/13/17 Warfarin Na [Coumadin -] 5 mg PO SuMoThFrSa@1800 tablet 03/31/18 Warfarin Na [Coumadin -] 10 mg PO TuWe@1800 tablet 03/31/18 Albuterol Sulfate [Proair Digihaler] 1 puff IH PRN PRN 11/15/19 Losartan Potassium 25 mg PO DAILY 11/15/19 Salmeterol/Fluticasone [Advair 100Mcg/50Mcg -] 1 puff IH BID PRN 11/15/19 Spironolactone [Aldactone -] 25 mg PO DAILY 11/15/19 Hydralazine HCl 50 mg PO DAILY PRN #30 tablet 11/17/19 Hydralazine HCl 100 mg PO BID #60 tablet 11/17/19 <Alex Sequeira - Last Filed: 12/10/19 19:18> Condition: Stable - Instructions Diet, Activity, Other Instructions: You were in the hospital because your blood pressure was very high. You needed ICU monitoring, and were seen by your chair inspector. Your medications were adjusted. You improved and are being sent home. Medications 1. You have been changed to hydralazine 100mg twice a day (instead of 50mg twice a day). 2. Per your chair inspector's recommendation, if you notice that your blood pressure is very high during the day (for example: with a systolic of 160-170 after taking the other dose), you may take 50mg extra of hydralazine. Make sure you wait a few hours after the initial dose of hydralazine to confirm if it is still high before doing this. If you have any questions, please contact your chair inspector or primary care doctor. 3. You may continue your other home medications. Care Please continue to check your blood pressure at home. This is very important. It is also important to avoid salt, as this can elevate it. Testing You will need to continue to have your INR checked by your primary care provider or chair inspector, while you are on warfarin. Follow-up Please follow with the following physicians upon discharge: -your primary care provider, Dr. Wright- this week to discuss your hospital visit -your chair inspector, Dr. Porter- on Wednesday, 11/20 to discuss your current medication regimen. -your dairy specialist, Dr. Buddy Liang - 1 week to follow up Referrals: Buddy Liang MD [Staff Physician] - 1 Week Brodie Wright MD [Staff Physician] - 1 Week Jake Porter MD [Staff Physician] - 11/20/19 Disposition: HOME This patient is new to me today: No Emergency Visit: No Critical Care patient: No - Discharge Referral Referred to [facility] No <Brandy Sanchez - Last Filed: 11/17/19 20:01> ATTENDING PHYSICIAN STATEMENT I saw and evaluated the patient. I reviewed the resident's note and discussed the case with the resident. I agree with the resident's findings and plan as documented. SUBJECTIVE: OBJECTIVE: ASSESSMENT AND PLAN: <Brandy Sanchez - Last Filed: 11/17/19 20:01> ATTENDING PHYSICIAN STATEMENT I saw and evaluated the patient. I reviewed the resident's note and discussed the case with the resident. I agree with the resident's findings and plan as documented. SUBJECTIVE: OBJECTIVE: ASSESSMENT AND PLAN: <Alex Sequeira - Last Filed: 12/10/19 19:18>
== END 2019-11-17 14:27 | disposition home or self-care (01) | DRG 305 ==
LOC: JER 12:50 → JERBED 15:12 → J4S 17:16 → OBSVTOIN 18:16 → JICU 11-16 02:01
PROVIDERS: ADMIT Internal Medicine; ATTEND Internal Medicine
DX: I16.1 Hypertensive emergency (principal); I24.8 Other forms of acute ischemic heart disease; I48.21 Permanent atrial fibrillation; N18.4 Chronic kidney disease, stage 4 (severe); G90.59 Complex regional pain syndrome I of other specified site; N17.9 Acute kidney failure, unspecified; I10 Essential (primary) hypertension; J45.909 Unspecified asthma, uncomplicated; N05.9 Unspecified nephritic syndrome with unspecified morphologic changes; K43.9 Ventral hernia without obstruction or gangrene; M10.9 Gout, unspecified; I12.9 Hypertensive chronic kidney disease with stage 1 through stage 4 chronic kidney disease, or unspecified chronic kidney disease; E11.22 Type 2 diabetes mellitus with diabetic chronic kidney disease; R79.89 Other specified abnormal findings of blood chemistry; M54.5 Low back pain; G25.81 Restless legs syndrome; K57.90 Diverticulosis of intestine, part unspecified, without perforation or abscess without bleeding; R19.7 Diarrhea, unspecified; M79.7 Fibromyalgia; R00.2 Palpitations; K44.9 Diaphragmatic hernia without obstruction or gangrene; E66.9 Obesity, unspecified; Z79.01 Long term (current) use of anticoagulants; Z96.651 Presence of right artificial knee joint; Z68.37 Body mass index [BMI] 37.0-37.9, adult
CPT/HCPCS: 36415; 71045-TC-FY; 80048; 80053; 80061; 81003; 82550; 82565; 82728; 82962; 83036; 83540; 83550; 83721; 83735; 83880; 83970; 84100; 84156; 84443; 84484; 85025; 85027; 85610; 85730; 87086; 93005; 93010; 93306-TC; 94640; 99282-25; G0378

== ENCOUNTER 2020-11-02 12:21 | Inpatient (IN) | payer OTHER, MEDICARE ==
[2020-11-02 13:29] LABS: BASO % 0.6 % (0-2.0); HEMOGLOBIN 9.3 GM/dL (10.7-15.3); LYMPH % 12.7 % (8-40); MCH 27.7 pg (25.7-33.7); MCHC 32.1 g/dl (32.0-36.0); MEAN CELL VOLUME 86.2 fl (80-96); MEAN PLT VOLUME 11.6 fl (7.5-11.1); MONO % 11.5 % (3.8-10.2); NEUT % 75.2 % (42.8-82.8); PLATELET COUNT 169 K/MM3 (134-434); RBC 3.37 M/mm3 (3.60-5.2); RDW 15.2 % (11.6-15.6); WHITE BLOOD COUNT 8.6 K/mm3 (4.0-10.0)
[2020-11-02 13:43] LABS: INR 2.08 (0.83-1.09); PROTHROMBIN TIME (PATIENT) 25.1 SEC (9.7-13.0)
[2020-11-02 13:59] LABS: ALBUMIN 2.8 g/dl (3.4-5.0); CALCIUM 7.7 mg/dL (8.5-10.1)
[2020-11-02 14:03] LABS: BILIRUBIN,DIRECT 0.1 mg/dL (0.0-0.2); CREATININE 3.2 mg/dL (0.55-1.3)
[2020-11-02 14:04] LABS: BILIRUBIN,TOTAL 0.3 mg/dL (0.2-1); TOT PROT 6.4 g/dl (6.4-8.2)
[2020-11-02] MEDS ORDERED: SODIUM CHLORIDE 500 ML IV STA (14:44)
[2020-11-02] MEDS: SODIUM CHLORIDE 500 ML IV STA ×2 (14:47→14:48)
[2020-11-02] MEDS ORDERED: ACETAMINOPHEN INJECTION 100 ML IVPB ONE (15:22)
[2020-11-02] MEDS: ACETAMINOPHEN 1000 MG/100 ML VIAL (NON FORMULARY) IVPB PRN ×2 (15:30→22:19)
[2020-11-02 18:22] VITALS: BMI 33.6
[2020-11-02 18:44] LABS: EPI CELLS 25 /uL (0-25.1); HYALINE CASTS 1 /uL (0-3.1); PH,URINE 5.5 (5.0-8.0); URINE APPEARANCE CLEAR; URINE BACTERIA 81 /uL (0-1359); URINE BILIRUBIN NEGATIVE (NEGATIVE); URINE COLOR YELLOW; URINE GLUCOSE (UA) NEGATIVE (NEGATIVE); URINE KETONE NEGATIVE (NEGATIVE); URINE LEUK ESTERASE NEGATIVE (NEGATIVE); URINE NITRITE NEGATIVE (NEGATIVE); URINE PROTEIN 3+ (NEGATIVE); URINE RBC 50 /uL (0-23.9); URINE UROBILINOGEN 0.2 mg/dL (0.2-1.0); URINE WBC 15 /uL (0-25.8)
[2020-11-02] MEDS: WARFARIN NA 5 MG TABLET PO SCH (18:57)
[2020-11-02] MEDS: ALLOPURINOL 300 MG TABLET (FP) PO SCH (21:26)
[2020-11-02] MEDS ORDERED: PT OWN MED DRAWER 7, Y5N ONE (21:27)
[2020-11-02] MEDS: DOXAZOSIN MESYLATE 2 MG TABLET PO SCH (22:09)
[2020-11-03 08:16] LABS: HEMATOCRIT 27.1 % (32.4-45.2); HEMOGLOBIN 8.6 GM/dL (10.7-15.3); INR 2.37 (0.83-1.09); MCH 27.1 pg (25.7-33.7); MCHC 31.9 g/dl (32.0-36.0); MEAN CELL VOLUME 84.9 fl (80-96); MEAN PLT VOLUME 11.5 fl (7.5-11.1); PLATELET COUNT 127 K/MM3 (134-434); RBC 3.19 M/mm3 (3.60-5.2); RDW 15.3 % (11.6-15.6); WHITE BLOOD COUNT 8.4 K/mm3 (4.0-10.0)
[2020-11-03 08:34] LABS: POTASSIUM 4.9 mmol/L (3.5-5.1)
[2020-11-03 08:41] LABS: CALCIUM 7.6 mg/dL (8.5-10.1)
[2020-11-03 08:42] LABS: ALBUMIN 2.5 g/dl (3.4-5.0); BLOOD UREA NITROGEN 48.8 mg/dL (7-18)
[2020-11-03 08:45] LABS: CREATININE 3.1 mg/dL (0.55-1.3)
[2020-11-03 08:46] LABS: BILIRUBIN,TOTAL 0.3 mg/dL (0.2-1)
[2020-11-03 08:47] LABS: TOT PROT 5.8 g/dl (6.4-8.2)
[2020-11-03] MEDS: ACETAMINOPHEN 1000 MG/100 ML VIAL (NON FORMULARY) IVPB PRN (14:10)
[2020-11-03] MEDS: WARFARIN NA 5 MG TABLET PO SCH (17:52)
[2020-11-03] MEDS: ALLOPURINOL 300 MG TABLET (FP) PO SCH (20:59)
[2020-11-03] MEDS: DOXAZOSIN MESYLATE 2 MG TABLET PO SCH (20:59)
[2020-11-04] MEDS ORDERED: ACETAMINOPHEN INJECTION 100 ML IVPB ONE (01:49)
[2020-11-04] MEDS ORDERED: ACETAMINOPHEN 1000 MG/100 ML VIAL (NON FORMULARY) IVPB ONE (03:00)
[2020-11-04 07:55] LABS: BASO % 0.3 % (0-2.0); EOS % 0.2 % (0-4.5); HEMATOCRIT 26.1 % (32.4-45.2); HEMOGLOBIN 8.3 GM/dL (10.7-15.3); MCH 27.4 pg (25.7-33.7); MCHC 31.9 g/dl (32.0-36.0); MONO % 12.2 % (3.8-10.2); NEUT % 66.3 % (42.8-82.8); PLATELET COUNT 126 K/MM3 (134-434); RBC 3.03 M/mm3 (3.60-5.2); WHITE BLOOD COUNT 7.4 K/mm3 (4.0-10.0)
[2020-11-04 08:09] LABS: INR 2.25 (0.83-1.09)
[2020-11-04 08:28] LABS: POTASSIUM 4.6 mmol/L (3.5-5.1)
[2020-11-04 08:34] LABS: BLOOD UREA NITROGEN 48.9 mg/dL (7-18); CALCIUM 7.8 mg/dL (8.5-10.1)
[2020-11-04 08:36] LABS: CREATININE 3.3 mg/dL (0.55-1.3)
[2020-11-04 12:33] VITALS: TEMP 98.6
[2020-11-04 15:57] VITALS: BP 124/63; PULSE 74
[2020-11-05] MEDS ORDERED: WARFARIN NA 10 MG TABLET PO SCH (18:00)
== END 2020-11-04 15:00 | disposition home or self-care (01) | DRG 178 ==
LOC: JER 12:21 → INTOOBSV 14:53 → JERBED 14:53 → UNDOADMOB 14:53 → JERBED 15:20 → OBSVTOIN 15:28 → J8W 16:32
PROVIDERS: ADMIT Internal Medicine
DX: U07.1 COVID-19 (principal); N17.9 Acute kidney failure, unspecified; R50.9 Fever, unspecified; I34.1 Nonrheumatic mitral (valve) prolapse; I12.9 Hypertensive chronic kidney disease with stage 1 through stage 4 chronic kidney disease, or unspecified chronic kidney disease; E11.22 Type 2 diabetes mellitus with diabetic chronic kidney disease; N18.30 Chronic kidney disease, stage 3 unspecified; M10.9 Gout, unspecified; I48.0 Paroxysmal atrial fibrillation; G25.81 Restless legs syndrome; K57.90 Diverticulosis of intestine, part unspecified, without perforation or abscess without bleeding; K44.9 Diaphragmatic hernia without obstruction or gangrene; M79.7 Fibromyalgia; D63.8 Anemia in other chronic diseases classified elsewhere; E78.5 Hyperlipidemia, unspecified; E86.0 Dehydration; Z79.01 Long term (current) use of anticoagulants; Z95.0 Presence of cardiac pacemaker
CPT/HCPCS: 36415; 71045-TC-FY; 80048; 80053; 81003; 82248; 82436; 82550; 82565; 82607; 82728; 82746; 83036; 83540; 83550; 83615; 84133; 84300; 84484; 84540; 85025; 85027; 85379; 85610; 86140; 87040; 93005; 93010; 99285-25; C9803; G0378; J0131; U0003

== ENCOUNTER 2021-04-17 11:18 | Observation (INO) | payer OTHER, MEDICARE ==
[2021-04-17] MEDS ORDERED: FAMOTIDINE 20 MG/50 ML IVPB 20 MG/50 ML MG IVPB ONE ×2 (11:45→12:05)
[2021-04-17] MEDS ORDERED: SODIUM CHLORIDE 0.9% 500 ML INFUS.BAG IV ONE (11:45)
[2021-04-17 12:29] LABS: BASO % 0.7 % (0-2.0); EOS % 7.4 % (0-4.5); HEMATOCRIT 29.8 % (32.4-45.2); HEMOGLOBIN 9.5 GM/dL (10.7-15.3); MCH 27.6 pg (25.7-33.7); MEAN CELL VOLUME 86.3 fl (80-96); MEAN PLT VOLUME 11.6 fl (7.5-11.1); MONO % 9.9 % (3.8-10.2); PLATELET COUNT 194 K/MM3 (134-434); RBC 3.45 M/mm3 (3.60-5.2); RDW 15.1 % (11.6-15.6); WHITE BLOOD COUNT 6.9 K/mm3 (4.0-10.0)
[2021-04-17 12:35] LABS: CALCIUM 8.6 mg/dL (8.5-10.1); MAGNESIUM 2.4 mg/dL (1.8-2.4)
[2021-04-17 12:38] LABS: CREATININE 3.9 mg/dL (0.55-1.3); INR 1.79 (0.83-1.09); PROTHROMBIN TIME (PATIENT) 21.7 SEC (9.7-13.0)
[2021-04-17 12:39] LABS: BILIRUBIN,TOTAL 0.3 mg/dL (0.2-1); PHOSPHOROUS 4.4 mg/dL (2.5-4.9)
[2021-04-17 12:40] LABS: TOT PROT 6.7 g/dl (6.4-8.2)
[2021-04-17 17:09] LABS: CALCIUM 8.1 mg/dL (8.5-10.1)
[2021-04-17 17:10] LABS: ALBUMIN 2.8 g/dl (3.4-5.0); BLOOD UREA NITROGEN 57.3 mg/dL (7-18)
[2021-04-17 17:14] LABS: BILIRUBIN,TOTAL 0.2 mg/dL (0.2-1); CREATININE 3.9 mg/dL (0.55-1.3)
[2021-04-17 17:15] LABS: TOT PROT 6.1 g/dl (6.4-8.2)
[2021-04-17] MEDS ORDERED: ALBUTEROL SO4 HFA INHALER IH PRN ×2 (17:19→18:24)
[2021-04-17] MEDS ORDERED: BUMETANIDE 1 MG TABLET PO PRN (17:19)
[2021-04-17 17:20] VITALS: BMI 34.0
[2021-04-17] MEDS: predniSONE 20 MG TABLET (UD) PO SCH (17:28)
[2021-04-17] MEDS: INSULIN SLIDING SCALE (NOVOLOG) 1 VIAL SQ SCH ×2 (17:33→21:28)
[2021-04-17] MEDS ORDERED: WARFARIN NA 5 MG TABLET PO SCH (18:00)
[2021-04-17] MEDS ORDERED: ACETAMINOPHEN 325 MG TABLET (FP) PO PRN (18:24)
[2021-04-17] MEDS ORDERED: oxyCODONE HCL 5 MG TABLET PO PRN (18:24)
[2021-04-17] MEDS: WARFARIN NA 5 MG TABLET PO SCH (19:36)
[2021-04-17] MEDS: hydrALAZINE HCL 50 MG TABLET (FP) PO SCH (21:30)
[2021-04-17] MEDS ORDERED: HEPARIN NA (PORCINE) 5,000 UNITS/ML 1ML VIAL SQ SCH (22:00)
[2021-04-17] MEDS ORDERED: HYDROCORTISONE 0.5% TOPICAL CREAM 30 GM TUBE TP ONE (23:06)
[2021-04-18] MEDS: INSULIN SLIDING SCALE (NOVOLOG) 1 VIAL SQ SCH ×4 (06:18→21:06)
[2021-04-18 08:43] LABS: BASO % 0.4 % (0-2.0); EOS % 6.6 % (0-4.5); HEMATOCRIT 27.5 % (32.4-45.2); HEMOGLOBIN 8.8 GM/dL (10.7-15.3); LYMPH % 11.4 % (8-40); MCH 27.8 pg (25.7-33.7); MEAN CELL VOLUME 86.9 fl (80-96); MEAN PLT VOLUME 11.8 fl (7.5-11.1); MONO % 11.6 % (3.8-10.2); PLATELET COUNT 158 K/MM3 (134-434); RBC 3.16 M/mm3 (3.60-5.2); RDW 15.3 % (11.6-15.6); WHITE BLOOD COUNT 7.6 K/mm3 (4.0-10.0)
[2021-04-18 09:01] LABS: CALCIUM 8.3 mg/dL (8.5-10.1)
[2021-04-18 09:02] LABS: ALBUMIN 2.9 g/dl (3.4-5.0); BLOOD UREA NITROGEN 60.1 mg/dL (7-18); MAGNESIUM 2.3 mg/dL (1.8-2.4)
[2021-04-18 09:05] LABS: PHOSPHOROUS 4.1 mg/dL (2.5-4.9)
[2021-04-18 09:06] LABS: BILIRUBIN,TOTAL 0.3 mg/dL (0.2-1)
[2021-04-18] MEDS ORDERED: PT OWN MED DRAWER 7, Y5N ONE ×2 (09:28→12:21)
[2021-04-18] MEDS ORDERED: ALLOPURINOL 100 MG TABLET (FP) PO SCH (10:00)
[2021-04-18] MEDS ORDERED: ALLOPURINOL 300 MG TABLET (FP) PO SCH (10:00)
[2021-04-18] MEDS ORDERED: SPIRONOLACTONE 25 MG TABLET PO SCH (10:00)
[2021-04-18] MEDS ORDERED: LOSARTAN 50MG/HCTZ 12.5MG 1 TAB PO SCH (10:00)
[2021-04-18] MEDS ORDERED: PATIENT'S OWN MEDICATION (NON-FORMULARY) (Ferrous Sulfate [Iron] 325 MG Tablet) PO SCH (10:00)
[2021-04-18] MEDS ORDERED: PATIENT'S OWN MEDICATION (NON-FORMULARY) (Losartan/Hydrochlorothiazide [Losartan-Hctz 100- PO SCH (10:00)
[2021-04-18] MEDS ORDERED: PATIENT'S OWN MEDICATION (NON-FORMULARY) (Vitamin B Complex [Vitamin B Complex] 1 EACH Cap PO SCH (10:00)
[2021-04-18] MEDS ORDERED: ENOXAPARIN NA (PORCINE) 40 MG/0.4 ML DISP.SYRIN SQ SCH (10:00)
[2021-04-18] MEDS: predniSONE 20 MG TABLET (UD) PO SCH (10:04)
[2021-04-18] MEDS: FERROUS SO4 325 MG TABLET (FP) PO SCH (10:04)
[2021-04-18] MEDS: hydrALAZINE HCL 50 MG TABLET (FP) PO SCH ×2 (10:04→21:07)
[2021-04-18] MEDS: CHOLECALCIFEROL (VIT D3) 1,000 UNIT (25 MCG) TABLET PO SCH (10:04)
[2021-04-18] MEDS: DOXAZOSIN MESYLATE 2 MG TABLET PO SCH (10:05)
[2021-04-18] MEDS: VITAMIN B COMPLEX W/C COMBO TABLET (FP) PO SCH (10:05)
[2021-04-18] MEDS ORDERED: FAMOTIDINE 20 MG TABLET PO SCH (11:30)
[2021-04-18] MEDS ORDERED: SODIUM ZIRCONIUM CYCLOSILICATE (LOKELMA) 5 GM PACKET PO ONE (11:45)
[2021-04-18] MEDS: FAMOTIDINE 20 MG TABLET PO SCH (14:10)
[2021-04-18] MEDS: WARFARIN NA 5 MG TABLET PO SCH (17:13)
[2021-04-18] MEDS ORDERED: WARFARIN NA 5 MG TABLET PO SCH ×2 (18:00)
[2021-04-19] MEDS: INSULIN SLIDING SCALE (NOVOLOG) 1 VIAL SQ SCH (06:06)
[2021-04-19 09:25] LABS: INR 1.63 (0.83-1.09); PROTHROMBIN TIME (PATIENT) 19.8 SEC (9.7-13.0)
[2021-04-19] MEDS ORDERED: PT OWN MED DRAWER 7, Y5N ONE (09:27)
[2021-04-19] MEDS: predniSONE 20 MG TABLET (UD) PO SCH (09:32)
[2021-04-19] MEDS: CHOLECALCIFEROL (VIT D3) 1,000 UNIT (25 MCG) TABLET PO SCH (09:32)
[2021-04-19] MEDS: FERROUS SO4 325 MG TABLET (FP) PO SCH (09:33)
[2021-04-19] MEDS: DOXAZOSIN MESYLATE 2 MG TABLET PO SCH (09:33)
[2021-04-19] MEDS: hydrALAZINE HCL 50 MG TABLET (FP) PO SCH (09:33)
[2021-04-19] MEDS: VITAMIN B COMPLEX W/C COMBO TABLET (FP) PO SCH (09:33)
[2021-04-19] MEDS: FAMOTIDINE 20 MG TABLET PO SCH (09:33)
[2021-04-19 09:48] LABS: CALCIUM 8.8 mg/dL (8.5-10.1)
[2021-04-19 09:49] LABS: ALBUMIN 3.1 g/dl (3.4-5.0); BLOOD UREA NITROGEN 61.4 mg/dL (7-18)
[2021-04-19 09:52] LABS: CREATININE 4.2 mg/dL (0.55-1.3)
[2021-04-19 09:53] LABS: BILIRUBIN,TOTAL 0.9 mg/dL (0.2-1)
[2021-04-19 09:54] LABS: TOT PROT 6.5 g/dl (6.4-8.2)
[2021-04-19 10:25] VITALS: BP 156/79; PULSE 60; TEMP 98.3
[2021-04-19] MEDS ORDERED: ALLOPURINOL 100 MG TABLET (FP) PO SCH (22:00)
[2021-04-21] MEDS ORDERED: WARFARIN NA 5 MG TABLET PO ONE (18:00)
[2021-04-22] MEDS ORDERED: WARFARIN NA 5 MG TABLET PO SCH ×2 (18:00)
== END 2021-04-19 10:47 | disposition home or self-care (01) ==
LOC: JER 11:18 → JERBED 13:06 → INTOOBSV 13:06 → UNDOADMOB 13:06 → J8W 14:42 → JERBED 14:42 → J8W 04-18 13:07 → JERBED 04-18 13:07
PROVIDERS: ADMIT Internal Medicine; ATTEND Nurse Practitioner Acute Care
PROC: 3E033GC Introduction of Other Therapeutic Substance into Peripheral Vein, Percutaneous Approach (ICD-10-PCS; principal; 2021-04-18)
PROC: 3E033GC Introduction of Other Therapeutic Substance into Peripheral Vein, Percutaneous Approach (ICD-10-PCS; 2021-04-18)
PROC: 3E023GC Introduction of Other Therapeutic Substance into Muscle, Percutaneous Approach (ICD-10-PCS; 2021-04-18)
PROC: 3E0337Z Introduction of Electrolytic and Water Balance Substance into Peripheral Vein, Percutaneous Approach (ICD-10-PCS; 2021-04-18)
DX: T78.3XXA Angioneurotic edema, initial encounter (principal); R21 Rash and other nonspecific skin eruption; E66.9 Obesity, unspecified; Z68.33 Body mass index [BMI] 33.0-33.9, adult; Z29.9 Encounter for prophylactic measures, unspecified; E11.9 Type 2 diabetes mellitus without complications; Z86.16 Personal history of COVID-19; Z88.8 Allergy status to other drugs, medicaments and biological substances
CPT/HCPCS: 36415; 80053; 82140; 82607; 82962; 83615; 83735; 84100; 85025; 85610; 93005; 93010; 96365; 96372; 96375; 96376; 99285-25; C9803; G0378; U0003; U0005

== ENCOUNTER 2021-07-29 18:04 | Inpatient (IN) | payer OTHER, MEDICARE ==
[2021-07-29] MEDS ORDERED: FUROSEMIDE 40 MG/4 ML INJECTABLE VIAL IVPUSH ONE (20:05)
[2021-07-29 20:31] LABS: BASO % 0.7 % (0-2.0); EOS % 2.4 % (0-4.5); HEMATOCRIT 24.6 % (32.4-45.2); HEMOGLOBIN 7.9 GM/dL (10.7-15.3); LYMPH % 16.5 % (8-40); MCH 26.7 pg (25.7-33.7); MCHC 32.3 g/dl (32.0-36.0); MEAN CELL VOLUME 82.7 fl (80-96); MEAN PLT VOLUME 11.4 fl (7.5-11.1); MONO % 10.3 % (3.8-10.2); NEUT % 70.1 % (42.8-82.8); PLATELET COUNT 158 10^3/uL (134-434); RBC 2.97 M/mm3 (3.60-5.2); RDW 13.9 % (11.6-15.6)
[2021-07-29 20:37] LABS: INR 1.47 (0.83-1.09); PROTHROMBIN TIME (PATIENT) 17.9 SEC (9.7-13.0)
[2021-07-29 20:40] LABS: ACTIVATED PTT 33.7 SECONDS (25.2-36.5)
[2021-07-29] MEDS ORDERED: FUROSEMIDE 40 MG/4 ML INJECTABLE VIAL ONE (20:44)
[2021-07-29 20:47] LABS: CALCIUM 8.2 mg/dL (8.5-10.1)
[2021-07-29 20:48] LABS: ALBUMIN 2.7 g/dl (3.4-5.0); BLOOD UREA NITROGEN 44.7 mg/dL (7-18)
[2021-07-29 20:51] LABS: CREATININE 3.7 mg/dL (0.55-1.3)
[2021-07-29 20:53] LABS: BILIRUBIN,TOTAL 0.2 mg/dL (0.2-1); TOT PROT 6.2 g/dl (6.4-8.2)
[2021-07-29 21:53] LABS: N-TERMINAL BNP 5001.8 pg/ml (5-125)
[2021-07-30] MEDS ORDERED: FUROSEMIDE 40 MG/4 ML INJECTABLE VIAL IVPUSH ONE (01:10)
[2021-07-30] MEDS ORDERED: FUROSEMIDE 40 MG/4 ML INJECTABLE VIAL ONE (05:36)
[2021-07-30] MEDS: INSULIN SLIDING SCALE (NOVOLOG) 1 VIAL SQ SCH ×4 (06:48→22:17)
[2021-07-30 07:42] LABS: MAGNESIUM 2.3 mg/dL (1.8-2.4)
[2021-07-30 07:46] LABS: PHOSPHOROUS 4.6 mg/dL (2.5-4.9)
[2021-07-30 07:49] LABS: HEMATOCRIT 24.8 % (32.4-45.2); MCHC 32.5 g/dl (32.0-36.0); MEAN CELL VOLUME 83.1 fl (80-96); MEAN PLT VOLUME 11.2 fl (7.5-11.1); PLATELET COUNT 150 10^3/uL (134-434); RBC 2.98 M/mm3 (3.60-5.2); RDW 13.5 % (11.6-15.6); WHITE BLOOD COUNT 7.3 K/mm3 (4.0-10.0)
[2021-07-30 08:59] LABS: EPI CELLS 4 /uL (0-25.1); HYALINE CASTS 0 /uL (0-3.1); PH,URINE 7.5 (5.0-8.0); URINE APPEARANCE CLEAR; URINE BACTERIA 8 /uL (0-1359); URINE BILIRUBIN NEGATIVE (NEGATIVE); URINE COLOR YELLOW; URINE GLUCOSE (UA) NEGATIVE (NEGATIVE); URINE KETONE NEGATIVE (NEGATIVE); URINE LEUK ESTERASE NEGATIVE (NEGATIVE); URINE NITRITE NEGATIVE (NEGATIVE); URINE PROTEIN 3+ (NEGATIVE); URINE RBC 26 /uL (0-23.9); URINE UROBILINOGEN 0.2 mg/dL (0.2-1.0); URINE WBC 3 /uL (0-25.8)
[2021-07-30] MEDS: hydrALAZINE HCL 50 MG TABLET (FP) PO SCH ×2 (09:04→22:16)
[2021-07-30] MEDS ORDERED: FUROSEMIDE 100 MG/10 ML INJECTABLE VIAL IVPB SCH (10:00)
[2021-07-30] MEDS ORDERED: FAMOTIDINE 20 MG TABLET PO SCH (10:00)
[2021-07-30 10:22] LABS: CALCIUM 8.5 mg/dL (8.5-10.1)
[2021-07-30 10:23] LABS: ALBUMIN 2.7 g/dl (3.4-5.0); BLOOD UREA NITROGEN 40.9 mg/dL (7-18)
[2021-07-30 10:25] LABS: CREATININE 3.5 mg/dL (0.55-1.3)
[2021-07-30 10:26] LABS: BILIRUBIN,TOTAL 0.3 mg/dL (0.2-1)
[2021-07-30 12:50] LABS: INR 1.45 (0.83-1.09); PROTHROMBIN TIME (PATIENT) 17.3 SEC (9.7-13.0)
[2021-07-30] MEDS: FUROSEMIDE 40 MG/4 ML INJECTABLE VIAL IVPUSH SCH (14:51)
[2021-07-30] MEDS ORDERED: IRON SUCROSE INJECTION 200 MG in SODIUM CHLORIDE 90 ML IVPB ONE (15:15)
[2021-07-30] MEDS ORDERED: WARFARIN NA 10 MG TABLET PO ONE (18:00)
[2021-07-30] MEDS ORDERED: WARFARIN NA 5 MG TABLET PO SCH (18:00)
[2021-07-31] MEDS: FUROSEMIDE 40 MG/4 ML INJECTABLE VIAL IVPUSH SCH ×2 (05:45→16:08)
[2021-07-31] MEDS: INSULIN SLIDING SCALE (NOVOLOG) 1 VIAL SQ SCH ×4 (06:06→21:09)
[2021-07-31 07:17] LABS: BASO % 0.7 % (0-2.0); EOS % 4.1 % (0-4.5); HEMATOCRIT 24.5 % (32.4-45.2); HEMOGLOBIN 8.2 GM/dL (10.7-15.3); LYMPH % 20.5 % (8-40); MCH 27.3 pg (25.7-33.7); MCHC 33.3 g/dl (32.0-36.0); MEAN CELL VOLUME 82.1 fl (80-96); MEAN PLT VOLUME 10.4 fl (7.5-11.1); MONO % 11.4 % (3.8-10.2); NEUT % 63.3 % (42.8-82.8); PLATELET COUNT 158 10^3/uL (134-434); RBC 2.99 M/mm3 (3.60-5.2); RDW 13.7 % (11.6-15.6); WHITE BLOOD COUNT 6.8 K/mm3 (4.0-10.0)
[2021-07-31 08:49] LABS: INR 1.51 (0.83-1.09); PROTHROMBIN TIME (PATIENT) 18.4 SEC (9.7-13.0)
[2021-07-31] MEDS: PANTOPRAZOLE 40 MG TABLET PO SCH (10:37)
[2021-07-31] MEDS: hydrALAZINE HCL 50 MG TABLET (FP) PO SCH ×2 (10:37→21:09)
[2021-07-31 15:02] VITALS: BMI 36.1
[2021-07-31] MEDS ORDERED: WARFARIN NA 10 MG TABLET PO SCH (18:00)
[2021-07-31] MEDS: APIXABAN 2.5 MG TABLET PO SCH (21:09)
[2021-08-01] MEDS: FUROSEMIDE 40 MG/4 ML INJECTABLE VIAL IVPUSH SCH (05:50)
[2021-08-01] MEDS: INSULIN SLIDING SCALE (NOVOLOG) 1 VIAL SQ SCH ×4 (06:09→21:14)
[2021-08-01 07:05] LABS: BASO % 0.8 % (0-2.0); EOS % 3.7 % (0-4.5); HEMATOCRIT 25.8 % (32.4-45.2); HEMOGLOBIN 8.4 GM/dL (10.7-15.3); LYMPH % 20.5 % (8-40); MCH 27.2 pg (25.7-33.7); MCHC 32.6 g/dl (32.0-36.0); MEAN CELL VOLUME 83.3 fl (80-96); MEAN PLT VOLUME 11.3 fl (7.5-11.1); MONO % 11.3 % (3.8-10.2); NEUT % 63.7 % (42.8-82.8); PLATELET COUNT 161 10^3/uL (134-434); RDW 13.7 % (11.6-15.6); WHITE BLOOD COUNT 8.7 K/mm3 (4.0-10.0)
[2021-08-01 07:07] LABS: INR 1.97 (0.83-1.09); PROTHROMBIN TIME (PATIENT) 23.8 SEC (9.7-13.0)
[2021-08-01 07:24] LABS: ALBUMIN 2.6 g/dl (3.4-5.0); CALCIUM 8.1 mg/dL (8.5-10.1); MAGNESIUM 2.1 mg/dL (1.8-2.4)
[2021-08-01 07:28] LABS: CREATININE 4.2 mg/dL (0.55-1.3)
[2021-08-01 07:29] LABS: BILIRUBIN,TOTAL 0.2 mg/dL (0.2-1); TOT PROT 5.9 g/dl (6.4-8.2)
[2021-08-01] MEDS: hydrALAZINE HCL 50 MG TABLET (FP) PO SCH ×2 (10:29→21:13)
[2021-08-01] MEDS: APIXABAN 2.5 MG TABLET PO SCH ×2 (10:29→21:14)
[2021-08-01] MEDS: PANTOPRAZOLE 40 MG TABLET PO SCH (10:29)
[2021-08-01] MEDS ORDERED: LORATADINE 10 MG TABLET PO SCH (22:22)
[2021-08-02 06:31] LABS: BASO % 0.6 % (0-2.0); HEMATOCRIT 24.3 % (32.4-45.2); MCH 27.3 pg (25.7-33.7); MCHC 32.8 g/dl (32.0-36.0); MEAN CELL VOLUME 83.3 fl (80-96); MEAN PLT VOLUME 11.1 fl (7.5-11.1); MONO % 11.3 % (3.8-10.2); NEUT % 63.1 % (42.8-82.8); PLATELET COUNT 148 10^3/uL (134-434); RBC 2.92 M/mm3 (3.60-5.2); RDW 13.9 % (11.6-15.6); WHITE BLOOD COUNT 8.8 K/mm3 (4.0-10.0)
[2021-08-02] MEDS: INSULIN SLIDING SCALE (NOVOLOG) 1 VIAL SQ SCH ×2 (06:45→11:28)
[2021-08-02 07:32] VITALS: TEMP 98.2
[2021-08-02] MEDS: PANTOPRAZOLE 40 MG TABLET PO SCH (09:09)
[2021-08-02] MEDS: hydrALAZINE HCL 50 MG TABLET (FP) PO SCH (09:09)
[2021-08-02] MEDS: APIXABAN 2.5 MG TABLET PO SCH (09:09)
[2021-08-02] MEDS ORDERED: LORATADINE 10 MG TABLET PO SCH (10:00)
[2021-08-02] MEDS ORDERED: FUROSEMIDE 40 MG TABLET (FP) PO SCH (10:00)
[2021-08-02] MEDS ORDERED: FUROSEMIDE 40 MG/4 ML INJECTABLE VIAL IVPUSH SCH (10:00)
[2021-08-02 10:36] VITALS: BP 150/76; PULSE 63
[2021-08-02 12:29] LABS: ALBUMIN 2.5 g/dl (3.4-5.0); BLOOD UREA NITROGEN 58.9 mg/dL (7-18); CALCIUM 7.9 mg/dL (8.5-10.1)
[2021-08-02 12:30] LABS: MAGNESIUM 2.1 mg/dL (1.8-2.4)
[2021-08-02 12:33] LABS: CREATININE 4.2 mg/dL (0.55-1.3)
[2021-08-02 12:34] LABS: BILIRUBIN,TOTAL 0.2 mg/dL (0.2-1); TOT PROT 5.7 g/dl (6.4-8.2)
== END 2021-08-02 14:06 | disposition home or self-care (01) | DRG 291 ==
LOC: JER 18:04 → JERBED 20:01 → J4S 23:35
PROVIDERS: ADMIT Internal Medicine; ATTEND Nurse Practitioner Family
DX: I13.0 Hypertensive heart and chronic kidney disease with heart failure and stage 1 through stage 4 chronic kidney disease, or unspecified chronic kidney disease (principal); I50.31 Acute diastolic (congestive) heart failure; I24.8 Other forms of acute ischemic heart disease; E11.22 Type 2 diabetes mellitus with diabetic chronic kidney disease; N18.9 Chronic kidney disease, unspecified; D63.1 Anemia in chronic kidney disease; E66.9 Obesity, unspecified; Z68.35 Body mass index [BMI] 35.0-35.9, adult; E87.70 Fluid overload, unspecified; I48.91 Unspecified atrial fibrillation; D50.9 Iron deficiency anemia, unspecified
CPT/HCPCS: 36415; 71045-TC-FY; 76775-TC; 80053; 80061; 81003; 82272; 82728; 82962; 83036; 83540; 83550; 83735; 83880; 84100; 84443; 84484; 85025; 85027; 85610; 85730; 86140; 87086; 93005; 93010; 93306-TC; 93970-TC; 99285-25; C9803; J1756; U0003; U0005

== ENCOUNTER 2021-09-08 04:33 | Day surgery (SDC) | payer OTHER, MEDICARE ==
[2021-09-04 11:28] VITALS: BMI 33.7
[2021-09-08] MEDS ORDERED: PAPAVERINE HCL 30 MG/1 ML 10 ML VIAL NR ONE ×2 (13:16→13:44)
[2021-09-08] MEDS ORDERED: HEPARIN NA (PORCINE) 5,000 UNITS/ML 1ML VIAL ONE ×2 (13:16→13:44)
[2021-09-08] MEDS ORDERED: POVIDONE-IODINE OINTMENT 10% - 28.4 GM TUBE ONE (13:44)
[2021-09-08] MEDS ORDERED: LIDOCAINE HCL 1%, 10 MG/ML (20ML VIAL) ONE (13:44)
[2021-09-08] MEDS ORDERED: MIDAZOLAM HCL 2 MG/2 ML SINGLE DOSE VIAL ONE ×2 (14:27)
[2021-09-08] MEDS ORDERED: PROPOFOL 20 ML ONE (14:40)
[2021-09-08] MEDS ORDERED: LIDOCAINE HCL 1%, 10 MG/ML (20ML VIAL) NR ONE (14:45)
[2021-09-08] MEDS ORDERED: HEPARIN NA (PORCINE) 5,000 UNITS/ML 1ML VIAL SQ ONE (14:45)
[2021-09-08] MEDS ORDERED: oxyCODONE HCL 5 MG TABLET PO PRN (16:56)
[2021-09-08] MEDS ORDERED: ONDANSETRON 4 MG/2 ML VIAL IVPUSH PRN (16:56)
[2021-09-08 18:16] VITALS: BP 104/68; PULSE 59; TEMP 97.4
== END 2021-09-08 18:16 | disposition home or self-care (01) ==
LOC: JASU-SURG 04:33
PROVIDERS: ATTEND Surgery
PROC: 03170ZD Bypass Right Brachial Artery to Upper Arm Vein, Open Approach (ICD-10-PCS; principal; 2021-09-08 14:00)
DX: I12.0 Hypertensive chronic kidney disease with stage 5 chronic kidney disease or end stage renal disease (principal); E11.22 Type 2 diabetes mellitus with diabetic chronic kidney disease; N18.6 End stage renal disease
CPT/HCPCS: 94760; J1644

== ENCOUNTER 2022-03-12 08:08 | Inpatient (IN) | payer OTHER, MEDICARE ==
[2022-03-12] MEDS ORDERED: methylPREDNISolone NA SUCC 125 MG/2 ML VIAL IVPB ONE (08:58)
[2022-03-12] MEDS: ALBUTEROL SO4 2.5/IPRATROPIUM 0.5 INH SOL 3 ML VIAL.NEB. NEB SCH ×4 (09:15→21:18)
[2022-03-12] MEDS ORDERED: methylPREDNISolone NA SUCC 125 MG/2 ML VIAL ONE (09:23)
[2022-03-12] MEDS ORDERED: ALBUTEROL SO4 2.5/IPRATROPIUM 0.5 INH SOL 3 ML VIAL.NEB. NEB ONE (09:30)
[2022-03-12 09:34] LABS: BASO % 0.6 % (0-2.0); EOS % 2.6 % (0-4.5); HEMOGLOBIN 8.6 GM/dL (10.7-15.3); LYMPH % 11.2 % (8-40); MCH 26.8 pg (25.7-33.7); MEAN CELL VOLUME 83.6 fl (80-96); MEAN PLT VOLUME 10.6 fl (7.5-11.1); MONO % 15.3 % (3.8-10.2); NEUT % 70.3 % (42.8-82.8); PLATELET COUNT 152 10^3/uL (134-434); RBC 3.23 M/mm3 (3.60-5.2); RDW 15.7 % (11.6-15.6); WHITE BLOOD COUNT 7.6 K/mm3 (4.0-10.0)
[2022-03-12 09:50] LABS: CHLORIDE 104 mmol/L (98-107); SODIUM 136 mmol/L (136-145)
[2022-03-12 09:55] LABS: ALBUMIN 2.7 g/dl (3.4-5.0); ANION GAP 9 MMOL/L (8-16); BLOOD UREA NITROGEN 60.1 mg/dL (7-18); CALCIUM 8.4 mg/dL (8.5-10.1); CO2 23 mmol/L (21-32)
[2022-03-12 09:56] LABS: GLUCOSE,RANDOM 85 mg/dL (74-106)
[2022-03-12 09:58] LABS: CREATININE 3.5 mg/dL (0.55-1.3); PHOSPHOROUS 4.5 mg/dL (2.5-4.9); SGOT/AST 24 U/L (15-37); SGPT/ALT 40 U/L (13-61)
[2022-03-12 09:59] LABS: BILIRUBIN,TOTAL 0.3 mg/dL (0.2-1); TOT PROT 6.2 g/dl (6.4-8.2)
[2022-03-12 10:01] LABS: ALK PHOS 72 U/L (45-117)
[2022-03-12 10:03] LABS: N-TERMINAL BNP 14599.1 pg/ml (5-125)
[2022-03-12 10:30] LABS: EPI CELLS 3 /uL (0-25.1); HYALINE CASTS 1 /uL (0-3.1); URINE APPEARANCE CLEAR; URINE BACTERIA 11 /uL (0-1359); URINE BILIRUBIN NEGATIVE (NEGATIVE); URINE COLOR YELLOW; URINE GLUCOSE (UA) NEGATIVE (NEGATIVE); URINE KETONE NEGATIVE (NEGATIVE); URINE LEUK ESTERASE NEGATIVE (NEGATIVE); URINE NITRITE NEGATIVE (NEGATIVE); URINE PROTEIN 2+ (NEGATIVE); URINE RBC 36 /uL (0-23.9); URINE UROBILINOGEN 0.2 mg/dL (0.2-1.0); URINE WBC 2 /uL (0-25.8)
[2022-03-12] MEDS: FUROSEMIDE 40 MG/4 ML INJECTABLE VIAL IVPB ONE ×2 (14:22→14:34)
[2022-03-12] MEDS ORDERED: FUROSEMIDE 40 MG/4 ML INJECTABLE VIAL ONE (14:24)
[2022-03-12] MEDS ORDERED: ALBUTEROL SO4 0.083% IH SOL 2.5 MG/3 ML VIAL.NEB. NEB PRN (14:31)
[2022-03-12 18:14] VITALS: BMI 34.6
[2022-03-12] MEDS ORDERED: HEPARIN NA (PORCINE) 5,000 UNITS/ML 1ML VIAL SQ SCH (22:00)
[2022-03-12] MEDS: hydrALAZINE HCL 50 MG TABLET (FP) PO SCH (22:45)
[2022-03-12] MEDS: APIXABAN 2.5 MG TABLET PO SCH (22:45)
[2022-03-12] MEDS: SODIUM BICARBONATE 650 MG TABLET PO SCH (22:45)
[2022-03-12] MEDS: INSULIN SLIDING SCALE (NOVOLOG) 1 VIAL SQ SCH (23:06)
[2022-03-13] MEDS: INSULIN SLIDING SCALE (NOVOLOG) 1 VIAL SQ SCH ×2 (06:24→12:26)
[2022-03-13] MEDS: SODIUM BICARBONATE 650 MG TABLET PO SCH ×2 (06:24→14:47)
[2022-03-13] MEDS: FUROSEMIDE 40 MG/4 ML INJECTABLE VIAL IVPUSH SCH ×2 (06:24→14:46)
[2022-03-13 08:05] LABS: CALCIUM 8.4 mg/dL (8.5-10.1)
[2022-03-13 08:06] LABS: ALBUMIN 2.4 g/dl (3.4-5.0); BLOOD UREA NITROGEN 73.6 mg/dL (7-18)
[2022-03-13 08:09] LABS: CREATININE 3.6 mg/dL (0.55-1.3)
[2022-03-13 08:11] LABS: BILIRUBIN,TOTAL 0.3 mg/dL (0.2-1); TOT PROT 5.6 g/dl (6.4-8.2)
[2022-03-13 08:29] LABS: HEMATOCRIT 25.7 % (32.4-45.2); HEMOGLOBIN 8.6 GM/dL (10.7-15.3); MCH 27.4 pg (25.7-33.7); MCHC 33.6 g/dl (32.0-36.0); MEAN CELL VOLUME 81.7 fl (80-96); MEAN PLT VOLUME 10.6 fl (7.5-11.1); PLATELET COUNT 153 10^3/uL (134-434); RBC 3.14 M/mm3 (3.60-5.2); RDW 15.3 % (11.6-15.6); WHITE BLOOD COUNT 7.6 K/mm3 (4.0-10.0)
[2022-03-13] MEDS: ALBUTEROL SO4 2.5/IPRATROPIUM 0.5 INH SOL 3 ML VIAL.NEB. NEB SCH ×2 (08:35→15:01)
[2022-03-13] MEDS: hydrALAZINE HCL 50 MG TABLET (FP) PO SCH (09:55)
[2022-03-13] MEDS: APIXABAN 2.5 MG TABLET PO SCH (09:56)
[2022-03-13] MEDS ORDERED: DOXAZOSIN MESYLATE 1 MG TABLET PO SCH (10:00)
[2022-03-13] MEDS ORDERED: methylPREDNISolone NA SUCC 40 MG/1 ML VIAL IVPUSH SCH (10:00)
[2022-03-13 10:57] VITALS: BP 141/75; PULSE 73; TEMP 98.1
== END 2022-03-13 17:09 | disposition home or self-care (01) | DRG 280 ==
LOC: JER 08:08 → JERBED 10:07 → J4W 15:30
PROVIDERS: ADMIT Internal Medicine; ATTEND Internal Medicine
DX: I13.0 Hypertensive heart and chronic kidney disease with heart failure and stage 1 through stage 4 chronic kidney disease, or unspecified chronic kidney disease (principal); I21.A1 Myocardial infarction type 2; I50.33 Acute on chronic diastolic (congestive) heart failure; E11.22 Type 2 diabetes mellitus with diabetic chronic kidney disease; J45.909 Unspecified asthma, uncomplicated; G25.81 Restless legs syndrome; N18.9 Chronic kidney disease, unspecified; D64.9 Anemia, unspecified; I48.91 Unspecified atrial fibrillation; M79.7 Fibromyalgia; E87.70 Fluid overload, unspecified; R06.09 Other forms of dyspnea
CPT/HCPCS: 36415; 71045-TC-FY; 80053; 81003; 82962; 83735; 83880; 84100; 84484; 85025; 85027; 87086; 87804; 93005; 93010; 94640; 99285-25; C9803-CS; U0003; U0005

== ENCOUNTER 2022-05-30 13:35 | Emergency (ER) | payer OTHER, MEDICARE ==
[2022-05-30 13:56] VITALS: BP 164/69; PULSE 60; TEMP 98; BMI 33.6
== END 2022-05-30 16:39 | disposition home or self-care (01) ==
LOC: FER 13:35
DX: M25.562 Pain in left knee (principal); R07.9 Chest pain, unspecified
CPT/HCPCS: 70450-TC; 71250-TC; 73562-TC-LT-FY; 99285-25

== ENCOUNTER 2023-02-08 21:14 | Inpatient (IN) | payer OTHER, MEDICARE ==
[2023-02-08 22:19] LABS: BASO % 0.8 % (0-2.0); EOS % 0.4 % (0-4.5); HEMATOCRIT 29.4 % (32.4-45.2); HEMOGLOBIN 9.3 GM/dL (10.7-15.3); LYMPH % 7.6 % (8-40); MCH 26.2 pg (25.7-33.7); MCHC 31.5 g/dl (32.0-36.0); MEAN PLT VOLUME 10.6 fl (7.5-11.1); MONO % 12.9 % (3.8-10.2); NEUT % 78.3 % (42.8-82.8); PLATELET COUNT 135 10^3/uL (134-434); RBC 3.55 M/mm3 (3.60-5.2); RDW 15.4 % (11.6-15.6); WHITE BLOOD COUNT 9.3 K/mm3 (4.0-10.0)
[2023-02-08 22:33] LABS: ALBUMIN 3.1 g/dl (3.4-5.0); CALCIUM 8.2 mg/dL (8.5-10.1)
[2023-02-08 22:36] LABS: CREATININE 3.9 mg/dL (0.55-1.3)
[2023-02-08 22:38] LABS: BILIRUBIN,TOTAL 0.5 mg/dL (0.2-1); TOT PROT 6.5 g/dl (6.4-8.2)
[2023-02-08] MEDS ORDERED: CEFTRIAXONE 1,000 MG in DEXTROSE 5%-WATER - 50 ML IVPB ONE (23:40)
[2023-02-09] MEDS ORDERED: CEFTRIAXONE 1 GM/50 ML BAG ONE (00:16)
[2023-02-09] MEDS ORDERED: REMDESIVIR 200 MG in SODIUM CHLORIDE 250 ML IVPB ONE ×2 (00:49→11:30)
[2023-02-09] MEDS ORDERED: ACETAMINOPHEN 325 MG TABLET (FP) PO PRN (02:12)
[2023-02-09 05:36] LABS: RETICULOCYTES 1.06 % (0.5-1.5)
[2023-02-09 05:52] VITALS: BMI 32.1
[2023-02-09] MEDS ORDERED: FUROSEMIDE 40 MG TABLET (FP) PO SCH (07:00)
[2023-02-09] MEDS: INSULIN SLIDING SCALE (NOVOLOG) 1 VIAL SQ SCH ×4 (07:16→21:26)
[2023-02-09 09:20] LABS: BASO % 0.6 % (0-2.0); EOS % 0.3 % (0-4.5); HEMATOCRIT 26.8 % (32.4-45.2); HEMOGLOBIN 8.9 GM/dL (10.7-15.3); LYMPH % 11.6 % (8-40); MCH 28.1 pg (25.7-33.7); MCHC 33.3 g/dl (32.0-36.0); MEAN CELL VOLUME 84.5 fl (80-96); MEAN PLT VOLUME 10.9 fl (7.5-11.1); MONO % 17.3 % (3.8-10.2); NEUT % 70.2 % (42.8-82.8); PLATELET COUNT 119 10^3/uL (134-434); RBC 3.17 M/mm3 (3.60-5.2); RDW 15.1 % (11.6-15.6); WHITE BLOOD COUNT 8.3 K/mm3 (4.0-10.0)
[2023-02-09] MEDS: hydrALAZINE HCL 50 MG TABLET (FP) PO SCH ×2 (10:04→21:20)
[2023-02-09] MEDS: APIXABAN 2.5 MG TABLET PO SCH ×2 (10:04→21:20)
[2023-02-09] MEDS: SODIUM BICARBONATE 650 MG TABLET PO SCH ×2 (10:04→21:20)
[2023-02-09 10:14] LABS: ALBUMIN 2.9 g/dl (3.4-5.0); BLOOD UREA NITROGEN 66.4 mg/dL (7-18); CALCIUM 8.4 mg/dL (8.5-10.1); MAGNESIUM 1.9 mg/dL (1.8-2.4)
[2023-02-09 10:16] LABS: CREATININE 4.1 mg/dL (0.55-1.3); PHOSPHOROUS 4.1 mg/dL (2.5-4.9)
[2023-02-09 10:18] LABS: BILIRUBIN,TOTAL 0.4 mg/dL (0.2-1)
[2023-02-09 17:47] LABS: EPI CELLS 8 /uL (0-25.1); HYALINE CASTS 0 /uL (0-3.1); PH,URINE 5.5 (5.0-8.0); URINE APPEARANCE CLEAR; URINE BACTERIA 20 /uL (0-1359); URINE BILIRUBIN NEGATIVE (NEGATIVE); URINE COLOR YELLOW; URINE GLUCOSE (UA) NEGATIVE (NEGATIVE); URINE KETONE NEGATIVE (NEGATIVE); URINE LEUK ESTERASE NEGATIVE (NEGATIVE); URINE NITRITE NEGATIVE (NEGATIVE); URINE PROTEIN 3+ (NEGATIVE); URINE RBC 85 /uL (0-23.9); URINE UROBILINOGEN 0.2 mg/dL (0.2-1.0); URINE WBC 8 /uL (0-25.8)
[2023-02-09] MEDS: DOXAZOSIN MESYLATE 2 MG TABLET PO SCH (21:21)
[2023-02-09 22:28] LABS: EPI CELLS 21 /uL (0-25.1); HYALINE CASTS 2 /uL (0-3.1); PH,URINE 5.5 (5.0-8.0); URINE APPEARANCE CLEAR; URINE BACTERIA 15 /uL (0-1359); URINE BILIRUBIN NEGATIVE (NEGATIVE); URINE COLOR YELLOW; URINE GLUCOSE (UA) NEGATIVE (NEGATIVE); URINE KETONE NEGATIVE (NEGATIVE); URINE LEUK ESTERASE NEGATIVE (NEGATIVE); URINE NITRITE NEGATIVE (NEGATIVE); URINE PROTEIN 4+ (NEGATIVE); URINE RBC 53 /uL (0-23.9); URINE UROBILINOGEN 0.2 mg/dL (0.2-1.0); URINE WBC 36 /uL (0-25.8)
[2023-02-10] MEDS ORDERED: ALBUTEROL SO4 HFA INHALER IH PRN (00:26)
[2023-02-10] MEDS: INSULIN SLIDING SCALE (NOVOLOG) 1 VIAL SQ SCH ×4 (06:54→22:32)
[2023-02-10 09:52] LABS: BASO % 0.7 % (0-2.0); EOS % 0.1 % (0-4.5); LYMPH % 10.5 % (8-40); MCH 27.9 pg (25.7-33.7); MCHC 33.4 g/dl (32.0-36.0); MEAN CELL VOLUME 83.5 fl (80-96); MEAN PLT VOLUME 10.5 fl (7.5-11.1); MONO % 18.7 % (3.8-10.2); PLATELET COUNT 117 10^3/uL (134-434); RBC 3.23 M/mm3 (3.60-5.2); WHITE BLOOD COUNT 7.9 K/mm3 (4.0-10.0)
[2023-02-10 10:12] LABS: CALCIUM 8.3 mg/dL (8.5-10.1)
[2023-02-10 10:13] LABS: ALBUMIN 2.8 g/dl (3.4-5.0); BLOOD UREA NITROGEN 63.7 mg/dL (7-18); MAGNESIUM 1.8 mg/dL (1.8-2.4)
[2023-02-10 10:15] LABS: BILIRUBIN,TOTAL 0.2 mg/dL (0.2-1); TOT PROT 5.8 g/dl (6.4-8.2)
[2023-02-10 10:16] LABS: CREATININE 4.2 mg/dL (0.55-1.3)
[2023-02-10] MEDS: REMDESIVIR 100 MG in SODIUM CHLORIDE 250 ML IVPB SCH (12:08)
[2023-02-10] MEDS: hydrALAZINE HCL 50 MG TABLET (FP) PO SCH ×2 (12:08→22:24)
[2023-02-10] MEDS: APIXABAN 2.5 MG TABLET PO SCH ×2 (12:09→22:24)
[2023-02-10] MEDS: SODIUM BICARBONATE 650 MG TABLET PO SCH ×2 (12:09→22:24)
[2023-02-10] MEDS: guaiFENesin/CODEINE 5 ML UNIT-DOSE CUPS PO PRN ×2 (17:25→22:39)
[2023-02-10] MEDS: DOXAZOSIN MESYLATE 2 MG TABLET PO SCH (22:24)
[2023-02-10 23:47] VITALS: RESP 18
[2023-02-11] MEDS: INSULIN SLIDING SCALE (NOVOLOG) 1 VIAL SQ SCH ×2 (06:30→14:08)
[2023-02-11 06:32] VITALS: PULSE 62
[2023-02-11 09:14] LABS: BASO % 0.5 % (0-2.0); EOS % 2.5 % (0-4.5); HEMATOCRIT 27.9 % (32.4-45.2); HEMOGLOBIN 8.9 GM/dL (10.7-15.3); LYMPH % 17.2 % (8-40); MCH 26.3 pg (25.7-33.7); MEAN CELL VOLUME 82.3 fl (80-96); MEAN PLT VOLUME 10.5 fl (7.5-11.1); MONO % 16.8 % (3.8-10.2); PLATELET COUNT 111 10^3/uL (134-434); WHITE BLOOD COUNT 7.3 K/mm3 (4.0-10.0)
[2023-02-11 09:28] LABS: ALBUMIN 2.7 g/dl (3.4-5.0); BLOOD UREA NITROGEN 62.9 mg/dL (7-18); CALCIUM 8.1 mg/dL (8.5-10.1); MAGNESIUM 1.9 mg/dL (1.8-2.4)
[2023-02-11 09:30] LABS: CREATININE 4.2 mg/dL (0.55-1.3)
[2023-02-11 09:32] LABS: BILIRUBIN,TOTAL 0.4 mg/dL (0.2-1); TOT PROT 5.7 g/dl (6.4-8.2)
[2023-02-11] MEDS: guaiFENesin/CODEINE 5 ML UNIT-DOSE CUPS PO PRN (10:13)
[2023-02-11] MEDS: hydrALAZINE HCL 50 MG TABLET (FP) PO SCH (10:13)
[2023-02-11] MEDS: SODIUM BICARBONATE 650 MG TABLET PO SCH (10:13)
[2023-02-11] MEDS: REMDESIVIR 100 MG in SODIUM CHLORIDE 250 ML IVPB SCH (10:13)
[2023-02-11] MEDS: APIXABAN 2.5 MG TABLET PO SCH (10:13)
[2023-02-11 11:50] VITALS: BP 141/69; TEMP 98.1
== END 2023-02-11 13:00 | disposition home or self-care (01) | DRG 178 ==
LOC: JER 21:14 → JERBED 02-09 00:27 → J8W 02-09 02:51
PROVIDERS: ADMIT Internal Medicine; ATTEND Nurse Practitioner Family
PROC: XW033E5 Introduction of Remdesivir Anti-infective into Peripheral Vein, Percutaneous Approach, New Technology Group 5 (ICD-10-PCS; principal; 2023-02-09)
DX: U07.1 COVID-19 (principal); G90.50 Complex regional pain syndrome I, unspecified; I13.2 Hypertensive heart and chronic kidney disease with heart failure and with stage 5 chronic kidney disease, or end stage renal disease; N18.5 Chronic kidney disease, stage 5; I50.32 Chronic diastolic (congestive) heart failure; N17.9 Acute kidney failure, unspecified; G25.81 Restless legs syndrome; I34.1 Nonrheumatic mitral (valve) prolapse; M10.9 Gout, unspecified; D63.1 Anemia in chronic kidney disease; I48.91 Unspecified atrial fibrillation; J45.30 Mild persistent asthma, uncomplicated; K57.90 Diverticulosis of intestine, part unspecified, without perforation or abscess without bleeding; K44.9 Diaphragmatic hernia without obstruction or gangrene; M79.7 Fibromyalgia; E66.9 Obesity, unspecified; Z68.32 Body mass index [BMI] 32.0-32.9, adult; D69.6 Thrombocytopenia, unspecified; E11.22 Type 2 diabetes mellitus with diabetic chronic kidney disease; Z95.0 Presence of cardiac pacemaker
CPT/HCPCS: 0241U-QW; 36415; 71045-TC-FY; 80053; 81003; 82728; 82962; 83540; 83550; 83735; 84100; 85025; 85045; 86140; 87040; 87070; 87086; 87205; 87899; 93005; 93010; 97116-GP; 97161-GP; 99285-25; C9399

== ENCOUNTER 2024-02-03 08:09 | Observation (INO) | payer OTHER, MEDICARE ==
[2024-02-03 08:18] VITALS: BMI 30.9
[2024-02-03] MEDS ORDERED: ALBUTEROL SO4 2.5/IPRATROPIUM 0.5 INH SOL 3 ML VIAL.NEB. NEB ONE ×2 (08:59→11:52)
[2024-02-03] MEDS ORDERED: methylPREDNISolone NA SUCC 125 MG/2 ML VIAL ONE (08:59)
[2024-02-03] MEDS: ALBUTEROL SO4 2.5/IPRATROPIUM 0.5 INH SOL 3 ML VIAL.NEB. NEB SCH ×2 (09:03→12:35)
[2024-02-03] MEDS: methylPREDNISolone NA SUCC 125 MG/2 ML VIAL IVPUSH ONE (09:25)
[2024-02-03 09:47] LABS: VENOUS BASE EXCESS -0.5 mmol/L (-2-2); VENOUS O2 SATURATION 56.9 % (70-80); VENOUS PH 7.392 (7.310-7.410)
[2024-02-03 09:51] LABS: BASO % 0.6 % (0-2.0); EOS % 0.8 % (0-4.5); HEMATOCRIT 26.5 % (32.4-45.2); HEMOGLOBIN 8.9 GM/dL (10.7-15.3); LYMPH % 7.1 % (8-40); MCH 28.3 pg (25.7-33.7); MCHC 33.5 g/dl (32.0-36.0); MEAN CELL VOLUME 84.6 fl (80-96); MEAN PLT VOLUME 10.6 fl (7.5-11.1); MONO % 11.9 % (3.8-10.2); NEUT % 79.6 % (42.8-82.8); PLATELET COUNT 121 10^3/uL (134-434); RBC 3.14 M/mm3 (3.60-5.2); RDW 14.1 % (11.6-15.6); WHITE BLOOD COUNT 8.3 K/mm3 (4.0-10.0)
[2024-02-03 10:06] LABS: INR 1.72 (0.83-1.09); PROTHROMBIN TIME (PATIENT) 19.8 SEC (9.7-13.0)
[2024-02-03 10:09] LABS: ACTIVATED PTT 36.1 SECONDS (25.2-36.5)
[2024-02-03 10:13] LABS: CHLORIDE 103 mmol/L (98-107); POTASSIUM 3.5 mmol/L (3.5-5.1); SODIUM 138 mmol/L (136-145)
[2024-02-03 10:15] LABS: CALCIUM 8.7 mg/dL (8.5-10.1)
[2024-02-03 10:16] LABS: ALBUMIN 3.1 g/dl (3.4-5.0); ANION GAP 8 mmol/L (4-13); BLOOD UREA NITROGEN 51.6 mg/dL (7-18); CO2 27 mmol/L (21-32); GLUCOSE,RANDOM 109 mg/dL (74-106)
[2024-02-03 10:19] LABS: CREATININE 4.7 mg/dL (0.55-1.3); SGOT/AST 19 U/L (15-37); SGPT/ALT 22 U/L (13-61)
[2024-02-03 10:21] LABS: BILIRUBIN,TOTAL 0.5 mg/dL (0.2-1); TOT PROT 6.4 g/dl (6.4-8.2)
[2024-02-03 10:22] LABS: ALK PHOS 84 U/L (45-117)
[2024-02-03 10:24] LABS: N-TERMINAL BNP > 35000.0 pg/ml (5-450)
[2024-02-03] MEDS ORDERED: ALBUTEROL SO4 0.083% IH SOL 2.5 MG/3 ML VIAL.NEB. NEB ONE (11:52)
[2024-02-03] MEDS ORDERED: methylPREDNISolone NA SUCC 40 MG/1 ML VIAL ONE (11:53)
[2024-02-03] MEDS: methylPREDNISolone NA SUCC 40 MG/1 ML VIAL IVPUSH SCH (12:35)
[2024-02-03 13:01] LABS: EPI CELLS 13 /uL (0-25.1); HYALINE CASTS 0 /uL (0-3.1); PH,URINE 5.5 (5.0-8.0); URINE APPEARANCE CLEAR; URINE BACTERIA 90 /uL (0-1359); URINE BILIRUBIN NEGATIVE (NEGATIVE); URINE COLOR YELLOW; URINE GLUCOSE (UA) NEGATIVE (NEGATIVE); URINE KETONE NEGATIVE (NEGATIVE); URINE LEUK ESTERASE NEGATIVE (NEGATIVE); URINE NITRITE NEGATIVE (NEGATIVE); URINE PROTEIN 3+ (NEGATIVE); URINE RBC 52 /uL (0-23.9); URINE UROBILINOGEN 0.2 mg/dL (0.2-1.0); URINE WBC 15 /uL (0-25.8)
[2024-02-03] MEDS: ALBUTEROL SO4 0.083% IH SOL 2.5 MG/3 ML VIAL.NEB. NEB SCH (13:10)
[2024-02-03] MEDS ORDERED: ACETAMINOPHEN 325 MG TABLET (FP) PO PRN (13:43)
[2024-02-03] MEDS ORDERED: ALBUTEROL SO4 0.083% IH SOL 2.5 MG/3 ML VIAL.NEB. NEB PRN (15:00)
[2024-02-03] MEDS: hydrALAZINE HCL 50 MG TABLET (FP) PO SCH (21:10)
[2024-02-03] MEDS: APIXABAN 2.5 MG TABLET PO SCH (21:10)
[2024-02-03] MEDS: DOXAZOSIN MESYLATE 2 MG TABLET PO SCH (21:11)
[2024-02-04] MEDS: guaiFENesin 200 MG/10 ML 10 ML UNIT-DOSE CUPS PO PRN (03:55)
[2024-02-04 06:20] VITALS: RESP 18
[2024-02-04] MEDS: FUROSEMIDE 40 MG TABLET (FP) PO SCH (06:54)
[2024-02-04 07:55] LABS: INR 1.56 (0.83-1.09)
[2024-02-04 07:58] LABS: HEMATOCRIT 26.1 % (32.4-45.2); HEMOGLOBIN 8.8 GM/dL (10.7-15.3); MCH 28.4 pg (25.7-33.7); MCHC 33.7 g/dl (32.0-36.0); MEAN CELL VOLUME 84.2 fl (80-96); MEAN PLT VOLUME 11.4 fl (7.5-11.1); PLATELET COUNT 127 10^3/uL (134-434); RDW 14.3 % (11.6-15.6); WHITE BLOOD COUNT 8.9 K/mm3 (4.0-10.0)
[2024-02-04 08:04] LABS: POTASSIUM 3.9 mmol/L (3.5-5.1)
[2024-02-04 08:07] LABS: CALCIUM 8.9 mg/dL (8.5-10.1)
[2024-02-04 08:08] LABS: BLOOD UREA NITROGEN 63.4 mg/dL (7-18); MAGNESIUM 1.9 mg/dL (1.8-2.4)
[2024-02-04 08:11] LABS: CREATININE 4.8 mg/dL (0.55-1.3); PHOSPHOROUS 4.9 mg/dL (2.5-4.9)
[2024-02-04 08:13] LABS: BILIRUBIN,TOTAL 0.4 mg/dL (0.2-1); TOT PROT 6.3 g/dl (6.4-8.2)
[2024-02-04 13:50] VITALS: BP 130/68; PULSE 86; TEMP 98.3
== END 2024-02-04 16:21 | disposition home or self-care (01) ==
LOC: JER 08:09 → JERBED 11:16 → J4S 14:33
PROVIDERS: ADMIT Internal Medicine; ATTEND Internal Medicine
PROC: 3E0F7GC Introduction of Other Therapeutic Substance into Respiratory Tract, Via Natural or Artificial Opening (ICD-10-PCS; principal; 2024-02-03)
PROC: 3E033GC Introduction of Other Therapeutic Substance into Peripheral Vein, Percutaneous Approach (ICD-10-PCS; 2024-02-03)
DX: J20.5 Acute bronchitis due to respiratory syncytial virus (principal); J96.01 Acute respiratory failure with hypoxia; E11.22 Type 2 diabetes mellitus with diabetic chronic kidney disease; I12.0 Hypertensive chronic kidney disease with stage 5 chronic kidney disease or end stage renal disease; N18.5 Chronic kidney disease, stage 5; Z90.79 Acquired absence of other genital organ(s); R77.8 Other specified abnormalities of plasma proteins; J45.901 Unspecified asthma with (acute) exacerbation; M10.9 Gout, unspecified; I50.9 Heart failure, unspecified; I48.91 Unspecified atrial fibrillation; I11.0 Hypertensive heart disease with heart failure; G90.50 Complex regional pain syndrome I, unspecified; G25.81 Restless legs syndrome; I34.1 Nonrheumatic mitral (valve) prolapse; E11.9 Type 2 diabetes mellitus without complications; D64.9 Anemia, unspecified; Z88.8 Allergy status to other drugs, medicaments and biological substances
CPT/HCPCS: 0241U-QW; 36415; 71045-TC-FY; 80053; 81003; 82803; 83605; 83735; 83880; 84100; 84484; 85025; 85027; 85610; 85730; 86850; 86900; 86901; 87040; 87086; 93005; 93010; 94640; 94761; 96374; 96376; 99285-25; G0378

== ENCOUNTER 2024-02-05 09:56 | Inpatient (IN) | payer OTHER, MEDICARE ==
[2024-02-05 10:08] VITALS: BMI 31.4
[2024-02-05] MEDS ORDERED: ALBUTEROL SO4 2.5/IPRATROPIUM 0.5 INH SOL 3 ML VIAL.NEB. NEB ONE ×5 (10:59→20:08)
[2024-02-05] MEDS: ALBUTEROL SO4 2.5/IPRATROPIUM 0.5 INH SOL 3 ML VIAL.NEB. NEB ONE (11:07)
[2024-02-05 11:52] LABS: VENOUS BASE EXCESS -3.6 mmol/L (-2-2); VENOUS O2 SATURATION 64.8 % (70-80); VENOUS PCO2 44.4 mmHg (38-52); VENOUS PH 7.323 (7.310-7.410)
[2024-02-05 11:54] LABS: INR 1.47 (0.83-1.09)
[2024-02-05 11:56] LABS: BASO % 0.3 % (0-2.0); EOS % 0.1 % (0-4.5); HEMATOCRIT 29.6 % (32.4-45.2); HEMOGLOBIN 9.4 GM/dL (10.7-15.3); LYMPH % 3.2 % (8-40); MCH 27.1 pg (25.7-33.7); MCHC 31.6 g/dl (32.0-36.0); MEAN CELL VOLUME 85.6 fl (80-96); MEAN PLT VOLUME 11.3 fl (7.5-11.1); MONO % 6.9 % (3.8-10.2); NEUT % 89.5 % (42.8-82.8); PLATELET COUNT 141 10^3/uL (134-434); RBC 3.45 M/mm3 (3.60-5.2); RDW 14.6 % (11.6-15.6); WHITE BLOOD COUNT 12.9 K/mm3 (4.0-10.0)
[2024-02-05 11:57] LABS: ACTIVATED PTT 30.7 SECONDS (25.2-36.5)
[2024-02-05 12:05] LABS: CHLORIDE 100 mmol/L (98-107); POTASSIUM 3.9 mmol/L (3.5-5.1); SODIUM 136 mmol/L (136-145)
[2024-02-05 12:07] LABS: ALBUMIN 3.1 g/dl (3.4-5.0); ANION GAP 12 mmol/L (4-13); CALCIUM 8.5 mg/dL (8.5-10.1); CO2 24 mmol/L (21-32)
[2024-02-05 12:08] LABS: BLOOD UREA NITROGEN 71.8 mg/dL (7-18); GLUCOSE,RANDOM 118 mg/dL (74-106)
[2024-02-05 12:11] LABS: CREATININE 4.7 mg/dL (0.55-1.3); SGOT/AST 27 U/L (15-37); SGPT/ALT 23 U/L (13-61)
[2024-02-05 12:12] LABS: BILIRUBIN,TOTAL 0.2 mg/dL (0.2-1); TOT PROT 6.6 g/dl (6.4-8.2)
[2024-02-05 12:16] LABS: ALK PHOS 118 U/L (45-117); N-TERMINAL BNP > 35000.0 pg/ml (5-450)
[2024-02-05 12:49] LABS: EPI CELLS 5 /uL (0-25.1); HYALINE CASTS 1 /uL (0-3.1); PH,URINE 5.5 (5.0-8.0); URINE APPEARANCE CLEAR; URINE BACTERIA 10 /uL (0-1359); URINE BILIRUBIN NEGATIVE (NEGATIVE); URINE COLOR YELLOW; URINE GLUCOSE (UA) NEGATIVE (NEGATIVE); URINE KETONE NEGATIVE (NEGATIVE); URINE LEUK ESTERASE NEGATIVE (NEGATIVE); URINE NITRITE NEGATIVE (NEGATIVE); URINE PROTEIN 3+ (NEGATIVE); URINE RBC 33 /uL (0-23.9); URINE UROBILINOGEN 0.2 mg/dL (0.2-1.0); URINE WBC 5 /uL (0-25.8)
[2024-02-05] MEDS: ALBUTEROL SO4 2.5/IPRATROPIUM 0.5 INH SOL 3 ML VIAL.NEB. NEB SCH ×2 (13:10→17:05)
[2024-02-05] MEDS ORDERED: methylPREDNISolone NA SUCC 40 MG/1 ML VIAL ONE ×2 (14:08→18:50)
[2024-02-05] MEDS: methylPREDNISolone NA SUCC 40 MG/1 ML VIAL IVPUSH SCH (14:14)
[2024-02-05] MEDS ORDERED: ONDANSETRON 4 MG/2 ML VIAL IVPUSH PRN (15:25)
[2024-02-05] MEDS ORDERED: ACETAMINOPHEN 325 MG TABLET (FP) PO PRN (15:25)
[2024-02-05] MEDS: FUROSEMIDE 40 MG/4 ML INJECTABLE VIAL IVPUSH ONE (15:31)
[2024-02-05] MEDS ORDERED: INSULIN ASPART SLIDING SCALE (NOVOLOG) 1 VIAL SQ SCH (16:30)
[2024-02-05] MEDS: AZITHROMYCIN IVPB 500 MG/250 ML BAG IVPB SCH (17:01)
[2024-02-05] MEDS: BUDESONIDE/FORMETEROL FUMARATE 160/4.5 mcg INHALER IH SCH (17:32)
[2024-02-05] MEDS: INSULIN ASPART SLIDING SCALE (NOVOLOG) 1 VIAL SQ SCH (18:09)
[2024-02-05] MEDS ORDERED: INSULIN (NOVOLOG) ASPART 100 UNITS/ML 10ML VIAL ONE ×2 (18:14→18:16)
[2024-02-05] MEDS ORDERED: hydrALAZINE HCL 50 MG TABLET (FP) ONE (22:01)
[2024-02-05] MEDS ORDERED: SENNOSIDES 8.6MG TABLET (FP) PO ONE (22:01)
[2024-02-05] MEDS ORDERED: APIXABAN 2.5 MG TABLET ONE (22:01)
[2024-02-05] MEDS: APIXABAN 2.5 MG TABLET PO SCH (22:05)
[2024-02-05] MEDS: F PO SCH (22:05)
[2024-02-05] MEDS: SENNOSIDES 8.6MG TABLET (FP) PO SCH (22:05)
[2024-02-05] MEDS ORDERED: MONTELUKAST NA 10 MG TABLET ONE (22:08)
[2024-02-05] MEDS: MONTELUKAST NA 10 MG TABLET PO SCH (22:44)
[2024-02-05] MEDS: DOXAZOSIN MESYLATE 2 MG TABLET PO SCH (22:44)
[2024-02-06] MEDS: ALBUTEROL SO4 2.5/IPRATROPIUM 0.5 INH SOL 3 ML VIAL.NEB. NEB ONE (05:41)
[2024-02-06] MEDS ORDERED: INSULIN ASPART SLIDING SCALE (NOVOLOG) 1 VIAL SQ ONE ×2 (06:05→12:11)
[2024-02-06] MEDS: FUROSEMIDE 40 MG TABLET (FP) PO SCH (06:08)
[2024-02-06] MEDS ORDERED: BUDESONIDE/FORMETEROL FUMARATE 80/4.5 mcg INHALER IH SCH (10:00)
[2024-02-06 10:03] LABS: BASO % 0.1 % (0-2.0); HEMATOCRIT 28.6 % (32.4-45.2); HEMOGLOBIN 9.4 GM/dL (10.7-15.3); LYMPH % 3.8 % (8-40); MCH 27.8 pg (25.7-33.7); MCHC 32.7 g/dl (32.0-36.0); MEAN CELL VOLUME 84.9 fl (80-96); MEAN PLT VOLUME 11.1 fl (7.5-11.1); MONO % 11.7 % (3.8-10.2); NEUT % 84.4 % (42.8-82.8); PLATELET COUNT 146 10^3/uL (134-434); RBC 3.37 M/mm3 (3.60-5.2); RDW 14.6 % (11.6-15.6); WHITE BLOOD COUNT 10.4 K/mm3 (4.0-10.0)
[2024-02-06 10:30] LABS: CALCIUM 8.8 mg/dL (8.5-10.1)
[2024-02-06 10:31] LABS: ALBUMIN 2.9 g/dl (3.4-5.0); BLOOD UREA NITROGEN 75.6 mg/dL (7-18); MAGNESIUM 1.9 mg/dL (1.8-2.4)
[2024-02-06 10:35] LABS: BILIRUBIN,TOTAL 0.3 mg/dL (0.2-1); CREATININE 4.8 mg/dL (0.55-1.3)
[2024-02-06 10:36] LABS: TOT PROT 6.2 g/dl (6.4-8.2)
[2024-02-06] MEDS: AZITHROMYCIN IVPB 500 MG/250 ML BAG IVPB SCH (10:51)
[2024-02-06] MEDS: POLYETHYLENE GLYCOL (HEALTHYLAX) 3350 17 GM PACKET PO SCH (10:51)
[2024-02-06] MEDS: ALBUTEROL SO4 0.083% IH SOL 2.5 MG/3 ML VIAL.NEB. NEB PRN (13:34)
[2024-02-06] MEDS: guaiFENesin 200 MG/10 ML 10 ML UNIT-DOSE CUPS PO PRN (13:35)
[2024-02-06] MEDS: methylPREDNISolone NA SUCC 40 MG/1 ML VIAL IVPUSH SCH (21:06)
[2024-02-08 06:54] LABS: HEMATOCRIT 28.5 % (32.4-45.2); HEMOGLOBIN 9.2 GM/dL (10.7-15.3); MCH 27.4 pg (25.7-33.7); MCHC 32.3 g/dl (32.0-36.0); MEAN PLT VOLUME 10.5 fl (7.5-11.1); PLATELET COUNT 145 10^3/uL (134-434); RBC 3.35 M/mm3 (3.60-5.2); RDW 14.4 % (11.6-15.6); WHITE BLOOD COUNT 13.1 K/mm3 (4.0-10.0)
[2024-02-08 07:09] LABS: POTASSIUM 4.2 mmol/L (3.5-5.1)
[2024-02-08 07:13] LABS: CALCIUM 8.6 mg/dL (8.5-10.1)
[2024-02-08 07:14] LABS: ALBUMIN 2.8 g/dl (3.4-5.0); BLOOD UREA NITROGEN 90.4 mg/dL (7-18)
[2024-02-08 07:17] LABS: CREATININE 4.6 mg/dL (0.55-1.3)
[2024-02-08 07:18] LABS: BILIRUBIN,TOTAL 0.3 mg/dL (0.2-1); TOT PROT 5.8 g/dl (6.4-8.2)
[2024-02-08 10:16] LABS: ANISOCYTOSIS 0; HELMET CELLS 0; HOWELL-JOLLY BODIES 0; MACROCYTOSIS 0; OVALOCYTE 0; ROULEAU 0; SICKELED CELLS 0; TARGET CELLS 0; TEAR DROP CELLS 0; TOXIC GRANULATION 0
[2024-02-08] MEDS ORDERED: INSULIN ASPART SLIDING SCALE (NOVOLOG) 1 VIAL SQ ONE (17:30)
[2024-02-08] MEDS ORDERED: PNEUMOC 20-VAL CONJ-DIP CRM/PF 0.5 ML SYRINGE IM ONE (19:00)
[2024-02-09 07:17] LABS: BASO % 0.2 % (0-2.0); EOS % 0.2 % (0-4.5); HEMATOCRIT 28.1 % (32.4-45.2); HEMOGLOBIN 9.1 GM/dL (10.7-15.3); LYMPH % 12.5 % (8-40); MCH 27.7 pg (25.7-33.7); MCHC 32.5 g/dl (32.0-36.0); MEAN CELL VOLUME 85.3 fl (80-96); MEAN PLT VOLUME 11.3 fl (7.5-11.1); MONO % 10.1 % (3.8-10.2); PLATELET COUNT 153 10^3/uL (134-434); RBC 3.29 M/mm3 (3.60-5.2); RDW 14.2 % (11.6-15.6); WHITE BLOOD COUNT 13.5 K/mm3 (4.0-10.0)
[2024-02-09 07:30] LABS: POTASSIUM 4.2 mmol/L (3.5-5.1)
[2024-02-09 07:35] LABS: ALBUMIN 2.7 g/dl (3.4-5.0); BLOOD UREA NITROGEN 97.7 mg/dL (7-18); CALCIUM 8.5 mg/dL (8.5-10.1)
[2024-02-09 07:39] LABS: CREATININE 4.5 mg/dL (0.55-1.3)
[2024-02-09 07:40] LABS: BILIRUBIN,TOTAL 0.3 mg/dL (0.2-1); TOT PROT 5.7 g/dl (6.4-8.2)
[2024-02-09] MEDS ORDERED: PNEUMOC 20-VAL CONJ-DIP CRM/PF 0.5 ML SYRINGE IM ONE (10:30)
[2024-02-09] MEDS: methylPREDNISolone NA SUCC 40 MG/1 ML VIAL IVPUSH SCH (10:52)
[2024-02-10 02:03] VITALS: RESP 18
[2024-02-10 12:53] VITALS: BP 145/68; PULSE 78; TEMP 97.8
== END 2024-02-10 14:06 | disposition home or self-care (01) | DRG 202 ==
LOC: JER 09:56 → JERBED 14:47 → J4S 23:37
PROVIDERS: ADMIT Internal Medicine; ATTEND Internal Medicine
DX: J45.41 Moderate persistent asthma with (acute) exacerbation (principal); G90.50 Complex regional pain syndrome I, unspecified; I13.2 Hypertensive heart and chronic kidney disease with heart failure and with stage 5 chronic kidney disease, or end stage renal disease; N18.5 Chronic kidney disease, stage 5; I50.32 Chronic diastolic (congestive) heart failure; E11.22 Type 2 diabetes mellitus with diabetic chronic kidney disease; M10.9 Gout, unspecified; I48.91 Unspecified atrial fibrillation; G25.81 Restless legs syndrome; Z96.651 Presence of right artificial knee joint; I34.1 Nonrheumatic mitral (valve) prolapse; I48.0 Paroxysmal atrial fibrillation; I77.810 Thoracic aortic ectasia; D50.9 Iron deficiency anemia, unspecified; R09.02 Hypoxemia; M79.7 Fibromyalgia; M54.50 Low back pain, unspecified; K57.90 Diverticulosis of intestine, part unspecified, without perforation or abscess without bleeding; K44.9 Diaphragmatic hernia without obstruction or gangrene; J20.9 Acute bronchitis, unspecified; N05.9 Unspecified nephritic syndrome with unspecified morphologic changes; D63.1 Anemia in chronic kidney disease; Z95.0 Presence of cardiac pacemaker
CPT/HCPCS: 0241U-QW; 36415; 71045-TC-FY; 80053; 81003; 82803; 82962; 83036; 83605; 83735; 83880; 84484; 85025; 85610; 85730; 87070; 87086; 87205; 93005; 93010; 94640; 99285-25

== ENCOUNTER 2024-05-02 10:01 | Inpatient (IN) | payer OTHER, MEDICARE ==
[2024-05-02 10:11] VITALS: BMI 30.2
[2024-05-02] MEDS ORDERED: ALBUTEROL SO4 2.5/IPRATROPIUM 0.5 INH SOL 3 ML VIAL.NEB. NEB ONE (10:44)
[2024-05-02] MEDS ORDERED: ACETAMINOPHEN INJECTION 100 ML IVPB ONE (10:44)
[2024-05-02] MEDS: ALBUTEROL SO4 2.5/IPRATROPIUM 0.5 INH SOL 3 ML VIAL.NEB. NEB ONE (10:53)
[2024-05-02] MEDS: ACETAMINOPHEN 1000 MG/100 ML BAG IVPB ONE (10:53)
[2024-05-02 10:58] LABS: BASO % 0.6 % (0-2.0); HEMATOCRIT 28.4 % (32.4-45.2); HEMOGLOBIN 9.3 GM/dL (10.7-15.3); LYMPH % 7.9 % (8-40); MCHC 32.9 g/dl (32.0-36.0); MEAN CELL VOLUME 85.3 fl (80-96); MEAN PLT VOLUME 10.4 fl (7.5-11.1); MONO % 12.5 % (3.8-10.2); PLATELET COUNT 138 10^3/uL (134-434); RBC 3.33 M/mm3 (3.60-5.2); RDW 14.6 % (11.6-15.6); WHITE BLOOD COUNT 9.1 K/mm3 (4.0-10.0)
[2024-05-02 10:59] LABS: VENOUS BASE EXCESS -1.5 mmol/L (-2-2); VENOUS O2 SATURATION 26.1 % (70-80); VENOUS PCO2 49.8 mmHg (38-52); VENOUS PH 7.321 (7.310-7.410)
[2024-05-02 11:05] LABS: INR 1.26 (0.83-1.09); PROTHROMBIN TIME (PATIENT) 14.4 SEC (9.7-13.0)
[2024-05-02 11:07] LABS: ACTIVATED PTT 36.6 SECONDS (25.2-36.5)
[2024-05-02 11:16] LABS: POTASSIUM 3.3 mmol/L (3.5-5.1)
[2024-05-02 11:18] LABS: ALBUMIN 3.2 g/dl (3.4-5.0); BLOOD UREA NITROGEN 69.1 mg/dL (7-18); CALCIUM 8.8 mg/dL (8.5-10.1)
[2024-05-02 11:21] LABS: CREATININE 6.1 mg/dL (0.55-1.3)
[2024-05-02 11:23] LABS: BILIRUBIN,TOTAL 0.5 mg/dL (0.2-1); TOT PROT 6.4 g/dl (6.4-8.2)
[2024-05-02] MEDS ORDERED: AZITHROMYCIN IVPB 500 MG/250 ML BAG IVPB ONE (11:45)
[2024-05-02] MEDS ORDERED: CEFTRIAXONE 1 GM/50 ML BAG ONE (11:45)
[2024-05-02] MEDS: SODIUM CHLORIDE 500 ML IV STA (11:58)
[2024-05-02] MEDS: AZITHROMYCIN IVPB 500 MG in DEXTROSE 5%-WATER - 250 ML IVPB ONE (12:24)
[2024-05-02] MEDS ORDERED: DEXAMETHASONE SOD PHOSPHATE 10 MG/1 ML VIAL ONE (12:28)
[2024-05-02] MEDS: DEXAMETHASONE SOD PHOSPHATE 20 MG/5 ML VIAL IVPB ONE (12:34)
[2024-05-02] MEDS: REMDESIVIR 200 MG in SODIUM CHLORIDE 250 ML IVPB ONE (14:04)
[2024-05-02] MEDS ORDERED: ALBUTEROL SO4 HFA INHALER IH PRN (15:03)
[2024-05-02] MEDS: INSULIN ASPART SLIDING SCALE (NOVOLOG) 1 VIAL SQ SCH (17:18)
[2024-05-02] MEDS: MONTELUKAST NA 10 MG TABLET PO SCH (21:44)
[2024-05-02] MEDS: guaiFENesin 200 MG/10 ML 10 ML UNIT-DOSE CUPS PO PRN (21:44)
[2024-05-02] MEDS: APIXABAN 2.5 MG TABLET PO SCH (21:44)
[2024-05-02] MEDS: SODIUM BICARBONATE 325 MG TABLET PO SCH (21:45)
[2024-05-02] MEDS ORDERED: PATIENT'S OWN MEDICATION (NON-FORMULARY) (Hydralazine Hcl [Hydralazine Hcl] 100 MG Tablet) PO SCH (22:00)
[2024-05-02] MEDS ORDERED: MONTELUKAST NA 10 MG TABLET PO SCH (22:00)
[2024-05-02] MEDS ORDERED: DOXAZOSIN MESYLATE 2 MG TABLET PO SCH (22:00)
[2024-05-03 07:37] LABS: POTASSIUM 4.2 mmol/L (3.5-5.1)
[2024-05-03 07:42] LABS: CALCIUM 8.8 mg/dL (8.5-10.1)
[2024-05-03 07:43] LABS: ALBUMIN 2.9 g/dl (3.4-5.0); BLOOD UREA NITROGEN 74.6 mg/dL (7-18); MAGNESIUM 1.9 mg/dL (1.8-2.4)
[2024-05-03 07:45] LABS: CREATININE 5.9 mg/dL (0.55-1.3); PHOSPHOROUS 5.5 mg/dL (2.5-4.9)
[2024-05-03 07:47] LABS: BILIRUBIN,TOTAL 0.3 mg/dL (0.2-1)
[2024-05-03 07:57] LABS: BASO % 0.4 % (0-2.0); HEMATOCRIT 26.2 % (32.4-45.2); HEMOGLOBIN 8.6 GM/dL (10.7-15.3); LYMPH % 10.8 % (8-40); MCH 27.9 pg (25.7-33.7); MCHC 32.8 g/dl (32.0-36.0); MEAN CELL VOLUME 85.3 fl (80-96); MEAN PLT VOLUME 11.2 fl (7.5-11.1); MONO % 13.1 % (3.8-10.2); NEUT % 75.7 % (42.8-82.8); PLATELET COUNT 136 10^3/uL (134-434); RBC 3.07 M/mm3 (3.60-5.2); RDW 14.8 % (11.6-15.6); WHITE BLOOD COUNT 6.9 K/mm3 (4.0-10.0)
[2024-05-03] MEDS: ALBUTEROL SO4 0.083% IH SOL 2.5 MG/3 ML VIAL.NEB. NEB PRN (09:35)
[2024-05-03] MEDS: SODIUM BICARBONATE 650 MG TABLET PO SCH (10:00)
[2024-05-03] MEDS ORDERED: PATIENT'S OWN MEDICATION (NON-FORMULARY) (Fluticasone/Vilanterol 1 PUFF Each) IH SCH (10:00)
[2024-05-03] MEDS: FLUTICASONE/UMECLIDIN/VILANTER(200-62.5-25 TRELEGY ELLIPTA) INAHLER IH SCH (10:01)
[2024-05-03 12:20] LABS: EPI CELLS 5 /uL (0-25.1); HYALINE CASTS 0 /uL (0-3.1); PH,URINE 5.5 (5.0-8.0); URINE APPEARANCE CLEAR; URINE BACTERIA 1 /uL (0-1359); URINE BILIRUBIN NEGATIVE (NEGATIVE); URINE COLOR YELLOW; URINE GLUCOSE (UA) NEGATIVE (NEGATIVE); URINE KETONE NEGATIVE (NEGATIVE); URINE LEUK ESTERASE NEGATIVE (NEGATIVE); URINE NITRITE NEGATIVE (NEGATIVE); URINE PROTEIN 3+ (NEGATIVE); URINE RBC 50 /uL (0-23.9); URINE UROBILINOGEN 0.2 mg/dL (0.2-1.0); URINE WBC 22 /uL (0-25.8)
[2024-05-03] MEDS: REMDESIVIR 100 MG in SODIUM CHLORIDE 250 ML IVPB SCH (15:12)
[2024-05-03] MEDS: guaiFENesin/CODEINE 10 ML UNIT-DOSE CUPS PO PRN (20:30)
[2024-05-04 07:05] LABS: EOS % 2.6 % (0-4.5); HEMATOCRIT 27.5 % (32.4-45.2); HEMOGLOBIN 8.9 GM/dL (10.7-15.3); LYMPH % 17.2 % (8-40); MCH 27.7 pg (25.7-33.7); MCHC 32.2 g/dl (32.0-36.0); MEAN PLT VOLUME 11.4 fl (7.5-11.1); MONO % 18.7 % (3.8-10.2); NEUT % 60.5 % (42.8-82.8); PLATELET COUNT 140 10^3/uL (134-434); RDW 14.8 % (11.6-15.6); WHITE BLOOD COUNT 8.1 K/mm3 (4.0-10.0)
[2024-05-04 07:25] LABS: BLOOD UREA NITROGEN 80.6 mg/dL (7-18); CALCIUM 8.7 mg/dL (8.5-10.1); MAGNESIUM 1.9 mg/dL (1.8-2.4)
[2024-05-04 07:27] LABS: PHOSPHOROUS 6.6 mg/dL (2.5-4.9)
[2024-05-04 07:28] LABS: CREATININE 5.5 mg/dL (0.55-1.3)
[2024-05-04 07:29] LABS: BILIRUBIN,TOTAL 0.3 mg/dL (0.2-1); TOT PROT 5.9 g/dl (6.4-8.2)
[2024-05-04 15:34] VITALS: BP 126/73; PULSE 86; RESP 19; TEMP 98.8
== END 2024-05-04 18:13 | disposition home health service (06) | DRG 178 ==
LOC: JER 10:01 → INTOOBSV 12:40 → UNDOADMOB 12:40 → JERBED 12:40 → J4W 13:55 → JERBED 14:55 → J4W 14:55 → OBSVTOIN 05-03 09:08
PROVIDERS: ADMIT Internal Medicine; ATTEND Internal Medicine
PROC: XW033E5 Introduction of Remdesivir Anti-infective into Peripheral Vein, Percutaneous Approach, New Technology Group 5 (ICD-10-PCS; principal; 2024-05-02)
DX: U07.1 COVID-19 (principal); I13.2 Hypertensive heart and chronic kidney disease with heart failure and with stage 5 chronic kidney disease, or end stage renal disease; N18.5 Chronic kidney disease, stage 5; R09.02 Hypoxemia; E11.22 Type 2 diabetes mellitus with diabetic chronic kidney disease; I50.9 Heart failure, unspecified
CPT/HCPCS: 0241U-QW; 36415; 71045-TC-FY; 80053; 81003; 82803; 82962; 83605; 83735; 84100; 84484; 85025; 85610; 85730; 86140; 87040; 87086; 93005; 93010; 94640; 97116-GP; 97161-GP; 99285-25; G0378; J0131; J0248

== ENCOUNTER 2024-09-27 04:43 | Emergency (ER) | payer OTHER, MEDICARE ==
[2024-09-27 05:01] VITALS: BMI 28.1
[2024-09-27] MEDS ORDERED: ACETAMINOPHEN 325 MG TABLET (FP) ONE (05:52)
[2024-09-27] MEDS ORDERED: predniSONE 20 MG TABLET (UD) ONE (05:52)
[2024-09-27] MEDS ORDERED: ALBUTEROL SO4 2.5/IPRATROPIUM 0.5 INH SOL 3 ML VIAL.NEB. NEB ONE (05:52)
[2024-09-27] MEDS: ALBUTEROL SO4 2.5/IPRATROPIUM 0.5 INH SOL 3 ML VIAL.NEB. NEB ONE (06:17)
[2024-09-27] MEDS: predniSONE 20 MG TABLET (UD) PO ONE (06:17)
[2024-09-27] MEDS: ACETAMINOPHEN 500 MG TABLET (FP) PO ONE (06:18)
[2024-09-27 07:57] VITALS: BP 147/64; PULSE 74; RESP 18; TEMP 98.1
== END 2024-09-27 08:14 | disposition home or self-care (01) ==
LOC: JER 04:43
PROC: 3E0F7GC Introduction of Other Therapeutic Substance into Respiratory Tract, Via Natural or Artificial Opening (ICD-10-PCS; principal; 2024-09-27)
DX: R05.9 Cough, unspecified (principal); R09.81 Nasal congestion; J06.9 Acute upper respiratory infection, unspecified; J44.1 Chronic obstructive pulmonary disease with (acute) exacerbation; Z20.822 Contact with and (suspected) exposure to COVID-19
CPT/HCPCS: 0241U-QW; 71046-TC-FY; 99284-25

== ENCOUNTER 2025-02-15 09:42 | Inpatient (IN) | payer OTHER, MEDICARE ==
[2025-02-15 11:49] LABS: ABSOLUTE IMMATURE GRANULOCYTES 0.04 x10^3/uL (0.0-0.031); BASOPHILS # 0.07 x10^3/uL (0.01-0.08); EOSINOPHIL % 3.1 % (0.7-5.8); EOSINOPHILS # 0.26 x10^3/uL (0.04-0.36); HEMATOCRIT 27.7 % (34.1-44.9); HEMOGLOBIN 8.6 g/dL (11.2-15.7); MEAN CELL VOLUME 86.6 fl (79.4-94.8); MONOCYTE # 0.87 x10^3/uL (0.24-0.86); MONOCYTE % 10.2 % (4.7-12.5); PLATELET COUNT # 150 x10^3/uL (182-369); RDW 14.7 % (12.4-16.6)
[2025-02-15 11:56] LABS: INR 1.21 (0.83-1.09); PROTHROMBIN TIME (PATIENT) 13.3 SEC (9.7-13.0)
[2025-02-15 11:59] LABS: ACTIVATED PTT 34.7 SECONDS (25.2-36.5)
[2025-02-15 12:12] LABS: POTASSIUM 4.8 mmol/L (3.5-5.1)
[2025-02-15 12:13] LABS: MAGNESIUM 2.1 mg/dL (1.8-2.4)
[2025-02-15 12:14] LABS: CALCIUM 9.2 mg/dL (8.5-10.1)
[2025-02-15 12:15] LABS: ALBUMIN 3.2 g/dl (3.4-5.0); BLOOD UREA NITROGEN 88.1 mg/dL (7-18)
[2025-02-15 12:17] LABS: PHOSPHOROUS 5.3 mg/dL (2.5-4.9)
[2025-02-15 12:18] LABS: CREATININE 5.6 mg/dL (0.55-1.3)
[2025-02-15 12:20] LABS: BILIRUBIN,TOTAL 0.9 mg/dL (0.2-1); TOT PROT 6.4 g/dl (6.4-8.2)
[2025-02-15] MEDS ORDERED: SODIUM CHLORIDE 250 ML IV PRN (14:08)
[2025-02-15 17:11] LABS: HCV DIAGNOSTIC IN-HOUSE W/RFLX NON-REACTIVE (NONREACTIVE)
[2025-02-15 20:39] VITALS: BMI 28.5
[2025-02-15] MEDS: rOPINIRole HCL 0.5 MG TABLET PO SCH (21:21)
[2025-02-15] MEDS: APIXABAN 2.5 MG TABLET PO SCH (21:21)
[2025-02-16 07:09] LABS: HEMATOCRIT 27.3 % (34.1-44.9); HEMOGLOBIN 8.8 g/dL (11.2-15.7); MCHC 32.2 g/dl (32.2-35.5); MEAN CELL VOLUME 86.1 fl (79.4-94.8); MEAN PLT VOLUME 12.1 fl (9.4-12.3); PLATELET COUNT # 138 x10^3/uL (182-369); RDW 14.4 % (12.4-16.6)
[2025-02-16 07:23] LABS: POTASSIUM 3.6 mmol/L (3.5-5.1)
[2025-02-16 07:40] LABS: ALBUMIN 3.2 g/dl (3.4-5.0); CALCIUM 8.9 mg/dL (8.5-10.1)
[2025-02-16 07:44] LABS: CREATININE 4.3 mg/dL (0.55-1.3); PHOSPHOROUS 3.4 mg/dL (2.5-4.9)
[2025-02-16 07:45] LABS: BILIRUBIN,TOTAL 0.5 mg/dL (0.2-1); TOT PROT 6.4 g/dl (6.4-8.2)
[2025-02-16 07:47] LABS: BLOOD UREA NITROGEN 54.5 mg/dL (7-18)
[2025-02-16] MEDS ORDERED: SODIUM CHLORIDE 250 ML IV PRN (11:19)
[2025-02-17 07:38] LABS: HEMATOCRIT 26.1 % (34.1-44.9); HEMOGLOBIN 8.2 g/dL (11.2-15.7); MCHC 31.4 g/dl (32.2-35.5); MEAN CELL VOLUME 87.3 fl (79.4-94.8); MEAN PLT VOLUME 12.8 fl (9.4-12.3); PLATELET COUNT # 140 x10^3/uL (182-369); RDW 14.3 % (12.4-16.6)
[2025-02-17 07:39] LABS: POTASSIUM 3.5 mmol/L (3.5-5.1)
[2025-02-17 07:46] LABS: BLOOD UREA NITROGEN 35.8 mg/dL (7-18); CALCIUM 8.8 mg/dL (8.5-10.1); MAGNESIUM 1.8 mg/dL (1.8-2.4)
[2025-02-17 07:49] LABS: BILIRUBIN,TOTAL 0.5 mg/dL (0.2-1); CREATININE 3.4 mg/dL (0.55-1.3); PHOSPHOROUS 3.4 mg/dL (2.5-4.9)
[2025-02-17 07:50] LABS: TOT PROT 5.8 g/dl (6.4-8.2)
[2025-02-17] MEDS: hydrALAZINE HCL 10 MG TABLET PO SCH (09:23)
[2025-02-17] MEDS: hydrALAZINE HCL 50 MG TABLET (FP) PO SCH (09:29)
[2025-02-17] MEDS ORDERED: ALBUTEROL SO4 HFA INHALER IH PRN ×2 (11:14→11:15)
[2025-02-17] MEDS: DOXAZOSIN MESYLATE 2 MG TABLET PO SCH (21:21)
[2025-02-18] MEDS ORDERED: SODIUM CHLORIDE 250 ML IV PRN (12:07)
[2025-02-19 06:59] LABS: HEMATOCRIT 24.2 % (34.1-44.9); HEMOGLOBIN 7.5 g/dL (11.2-15.7); MEAN CELL VOLUME 87.4 fl (79.4-94.8); MEAN PLT VOLUME 12.9 fl (9.4-12.3); PLATELET COUNT # 113 x10^3/uL (182-369); RDW 13.8 % (12.4-16.6)
[2025-02-19 07:26] LABS: POTASSIUM 3.8 mmol/L (3.5-5.1)
[2025-02-19 07:28] LABS: BLOOD UREA NITROGEN 48.2 mg/dL (7-18); CALCIUM 8.8 mg/dL (8.5-10.1); MAGNESIUM 1.6 mg/dL (1.8-2.4)
[2025-02-19 07:31] LABS: CREATININE 4.8 mg/dL (0.55-1.3); PHOSPHOROUS 4.3 mg/dL (2.5-4.9)
[2025-02-19 09:31] VITALS: RESP 18
[2025-02-19 09:32] VITALS: TEMP 98.2
[2025-02-19 13:23] VITALS: PULSE 80
[2025-02-19 14:23] VITALS: BP 157/90
== END 2025-02-19 16:20 | disposition home or self-care (01) | DRG 640 ==
LOC: JER 09:42 → JERBED 10:41 → J4W 18:09
PROVIDERS: ADMIT Internal Medicine; ATTEND Internal Medicine
PROC: 5A1D70Z Performance of Urinary Filtration, Intermittent, Less than 6 Hours Per Day (ICD-10-PCS; principal; 2025-02-15)
PROC: 5A1D70Z Performance of Urinary Filtration, Intermittent, Less than 6 Hours Per Day (ICD-10-PCS; 2025-02-16)
PROC: 5A1D70Z Performance of Urinary Filtration, Intermittent, Less than 6 Hours Per Day (ICD-10-PCS; 2025-02-19)
DX: E87.70 Fluid overload, unspecified (principal); N18.6 End stage renal disease; I13.2 Hypertensive heart and chronic kidney disease with heart failure and with stage 5 chronic kidney disease, or end stage renal disease; I50.32 Chronic diastolic (congestive) heart failure; I48.0 Paroxysmal atrial fibrillation; M79.7 Fibromyalgia; M10.9 Gout, unspecified; E11.22 Type 2 diabetes mellitus with diabetic chronic kidney disease; J45.909 Unspecified asthma, uncomplicated; I77.819 Aortic ectasia, unspecified site; I34.1 Nonrheumatic mitral (valve) prolapse; D63.1 Anemia in chronic kidney disease; M54.50 Low back pain, unspecified; Z99.2 Dependence on renal dialysis; Z96.651 Presence of right artificial knee joint; Z95.0 Presence of cardiac pacemaker
CPT/HCPCS: 0241U-QW; 36415; 71045-TC-FY; 80048; 80053; 83735; 84100; 84484; 85025; 85027; 85610; 85730; 86704; 86803; 87340; 87517; 93005; 93010; 93308; 93990-TC; 99285-25

== ENCOUNTER 2025-03-27 18:21 | Emergency (ER) | payer OTHER, MEDICARE ==
[2025-03-27 18:31] VITALS: BP 151/65; PULSE 71; RESP 16; TEMP 98.1; BMI 26.6
[2025-03-27] MEDS ORDERED: DIPHTH,PERTUSS(ACELL),TET 0.5 ML DISP.SYRIN IM ONE (20:44)
[2025-03-27] MEDS: DIPHTH,PERTUSS(ACELL),TET 0.5 ML DISP.SYRIN IM ONE (20:50)
[2025-03-27] MEDS ORDERED: BACITRACIN 0.9 GM PACKET ONE (20:59)
[2025-03-27] MEDS: BACITRACIN ZINC 15 GM TUBE TOPICAL OINTMENT TP ONE (21:08)
== END 2025-03-27 21:16 | disposition home or self-care (01) ==
LOC: JER 18:21
PROC: 3E0234Z Introduction of Serum, Toxoid and Vaccine into Muscle, Percutaneous Approach (ICD-10-PCS; principal; 2025-03-27)
DX: S00.83XA Contusion of other part of head, initial encounter (principal); W01.198A Fall on same level from slipping, tripping and stumbling with subsequent striking against other object, initial encounter; Y92.094 Garage of other non-institutional residence as the place of occurrence of the external cause
CPT/HCPCS: 70450-TC; 72125-TC; 90471; 90715; 99285-25

== ENCOUNTER → 2025-05-01 | Day surgery (SDC) | payer OTHER, MEDICARE ==
[~2025-05-01] MED LIST: FENTANYL CITRATE/PF 50 MCG/ML VIAL ONE; HEPARIN NA (PORCINE) 5,000 UNITS/ML 1ML VIAL ONE; MIDAZOLAM HCL 2 MG/2 ML SINGLE DOSE VIAL ONE
[2025-05-01 12:25] LABS: ABSOLUTE IMMATURE GRANULOCYTES 0.03 x10^3/uL (0.0-0.031); BASOPHILS # 0.06 x10^3/uL (0.01-0.08); EOSINOPHIL % 3.3 % (0.7-5.8); EOSINOPHILS # 0.24 x10^3/uL (0.04-0.36); HEMATOCRIT 34.3 % (34.1-44.9); HEMOGLOBIN 10.8 g/dL (11.2-15.7); MCHC 31.5 g/dl (32.2-35.5); MEAN CELL VOLUME 87.5 fl (79.4-94.8); MONOCYTE # 0.98 x10^3/uL (0.24-0.86); MONOCYTE % 13.4 % (4.7-12.5); PLATELET COUNT 178 x10^3/uL (182-369); RDW 15.5 % (12.4-16.6)
[2025-05-01 12:30] LABS: INR 1.19 (0.83-1.09); PROTHROMBIN TIME (PATIENT) 13.1 SEC (9.7-13.0)
[2025-05-01 12:47] LABS: CHLORIDE 104 mmol/L (98-107)
[2025-05-01 12:52] LABS: CALCIUM 10.1 mg/dL (8.5-10.1)
[2025-05-01 12:53] LABS: ALBUMIN 3.3 g/dl (3.4-5.0); BLOOD UREA NITROGEN 36.3 mg/dL (7-18); CO2 29 mmol/L (21-32); GLUCOSE,RANDOM 90 mg/dL (74-106)
[2025-05-01 12:54] LABS: ANION GAP 10 mmol/L (4-13); POTASSIUM 3.8 mmol/L (3.5-5.1); SODIUM 144 mmol/L (136-145)
[2025-05-01 12:56] LABS: CREATININE 4.3 mg/dL (0.55-1.3); SGOT/AST 17 U/L (15-37); SGPT/ALT 15 U/L (13-61)
[2025-05-01 12:57] LABS: BILIRUBIN,TOTAL 0.5 mg/dL (0.2-1)
[2025-05-01 12:58] LABS: TOT PROT 6.9 g/dl (6.4-8.2)
[2025-05-01 12:59] LABS: ALK PHOS 179 U/L (45-117)
[2025-05-01] MEDS: MIDAZOLAM HCL 2 MG/2 ML SINGLE DOSE VIAL IVPUSH ONE (13:30)
[2025-05-01] MEDS: FENTANYL CITRATE/PF 50 MCG/ML VIAL IVPUSH ONE (13:32)
[2025-05-01] MEDS: THROMBIN (BOVINE) 5,000 UNIT VIAL TP ONE (13:43)
[2025-05-01 14:16] VITALS: RESP 14
[2025-05-01 14:40] VITALS: BP 138/73; PULSE 70
== END | disposition home or self-care (01) ==
LOC: JRADIR 11:32
PROVIDERS: ATTEND Surgery
PROC: 3E053GC Introduction of Other Therapeutic Substance into Peripheral Artery, Percutaneous Approach (ICD-10-PCS; principal; 2025-05-01)
DX: T82.510A Breakdown (mechanical) of surgically created arteriovenous fistula, initial encounter (principal); I13.2 Hypertensive heart and chronic kidney disease with heart failure and with stage 5 chronic kidney disease, or end stage renal disease; E11.22 Type 2 diabetes mellitus with diabetic chronic kidney disease; N18.6 End stage renal disease; I50.9 Heart failure, unspecified; N17.9 Acute kidney failure, unspecified; Y83.8 Other surgical procedures as the cause of abnormal reaction of the patient, or of later complication, without mention of misadventure at the time of the procedure; Y92.89 Other specified places as the place of occurrence of the external cause
CPT/HCPCS: 36002; 36415; 37248; 76000-TC-FY; 80053; 85025; 85610; 93985; C1725; C1769; C1894